=== PATIENT | male | born 1955 | race Caucasian/White ===

== ENCOUNTER 2021-09-09 09:00 | Outpatient (REF) | payer MEDICARE, MEDICAID, SELFPAY ==
--- NOTE | ~2021-09-09 | US_ITS ---
EXAMINATION: US ABDOMEN COMPLETE CLINICAL INFORMATION: Abnormal liver test. History of chronic alcohol use. COMPARISON: None TECHNIQUE: Real-time imaging of the abdominal viscera. FINDINGS: PANCREAS: The pancreas is homogeneous in echotexture and normal size. ABDOMINAL AORTA: The proximal, mid, and distal segments are normal in caliber. There are mild atherosclerotic plaques in the abdominal aorta. INFERIOR VENA CAVA: Visualized portions are normal. LIVER: The liver is normal in size. The liver contour is normal. Parenchymal echogenicity is increased. There is an anechoic cyst in the left hepatic lobe, anterior segment, measuring 0.8 x 0.8 x 0.9 cm. Cyst in the right hepatic lobe measures 1.1 x 0.8 x 0.7 cm. No solid lesion seen. There is no intrahepatic biliary duct dilatation seen. GALLBLADDER: Normal. The gallbladder is physiologically distended without evidence of stones, sludge, polyps, wall thickening or pericholecystic fluid. COMMON BILE DUCT: Normal in caliber measuring 0.22 cm in diameter. RIGHT KIDNEY: Normal. No hydronephrosis. No renal calculi or focal parenchymal lesions. The kidney measures 10.7 cm in maximum dimension. LEFT KIDNEY: There are 2 anechoic cysts seen in lower pole. The medial cyst measures 2.1 x 2.4 x 2.[address] lateral [address] cyst measures 2.1 x 1.4 x 2.4 cm. No hydronephrosis. No renal calculi or focal parenchymal lesions. The kidney measures 10.8 cm in maximum dimension. SPLEEN: Normal. The spleen measures 10.3 cm in maximum dimension. FREE FLUID: None. US/US abdomen complete IMPRESSION: 1. Mild hepatic steatosis. There are 2, right and left hepatic lobe small cysts. 2. There are 2 left renal cysts. 3. There are no echogenic renal calculi or hydronephrosis.
== END 2021-09-09 09:01 | disposition home or self-care (01) ==
LOC: HO.US 09:00
PROVIDERS: PCP Internal Medicine; Visit Provider Internal Medicine
DX: R94.5 Abnormal results of liver function studies (principal); F10.11 Alcohol abuse, in remission
CPT/HCPCS: 76700

== ENCOUNTER 2021-09-28 09:01 | Outpatient (REF) | payer MEDICARE, MEDICAID, SELFPAY ==
--- NOTE | ~2021-09-28 | MM_ITS ---
EXAMINATION: MM DIAGNOSTIC DIGITAL BREAST TOMOSYNTHESIS, BILATERAL US DIAGNOSTIC ULTRASOUND BREAST, LEFT CLINICAL INFORMATION: 65-year-old male with left retroareolar tenderness for approximately 3 months. Family history breast cancer, sister. No prior breast imaging. COMPARISON: None (current study represents initial baseline exam). TECHNIQUE: Digital breast tomosynthesis is performed in both the craniocaudal and mediolateral oblique views along with computer-aided detection (CAD). Synthesized 2D images are generated from the tomosynthesis. Ultrasound ultrasound left breast is targeted to the retroareolar and periareolar region. Grayscale imaging and color Doppler are performed without and with harmonics. FINDINGS: There are scattered areas of fibroglandular density (ACR BI-RADS breast composition Category b). There is mild asymmetric gynecomastia type parenchymal pattern, greater on the left. There is no mass or architectural abnormality. No abnormal calcifications. The axilla and skin contours are unremarkable. No skin thickening or coarsening of the stromal markings. Ultrasound left breast demonstrates no additional finding. There is no cystic or solid mass or architectural abnormality. No skin thickening or edema tracking in soft tissue planes. Results are discussed with the patient at time of visit. Patient should be managed based on the clinical impression. If clinically indicated, further evaluation may be considered with surgical consult. Decision to proceed with biopsy should be based on clinical grounds and degree of clinical concern. MM/MM tomosynthesis diagnostic BI IMPRESSION: Mild asymmetric gynecomastia, greater on left. ASSESSMENT: BI-RADS 2: Benign RECOMMENDATION: Patient may be managed based on the clinical impression.
== END 2021-09-28 09:02 | disposition home or self-care (01) ==
LOC: HO.MAMMO 09:01
PROVIDERS: Visit Provider Internal Medicine
DX: N62 Hypertrophy of breast (principal)
CPT/HCPCS: 76642; 77062; 77066

== ENCOUNTER 2024-04-15 15:26 | Outpatient (REF) | payer MEDICARE, MEDICAID, SELFPAY ==
[2024-04-15 17:58] LABS: MANUAL DIFF FLAG NO
[2024-04-15 18:11] LABS: Basophils Absolute Auto 0.1 X10*3/uL (0.0-0.2); Basophils Percent Auto 0.8 % (0-2); Eosinophils Absolute Auto 0.3 X10*3/uL (0.0-0.4); Hematocrit 39.1 % (42.0-52.0); Hemoglobin 14.1 g/dl (14.0-18.0); Imm Gran Abs Auto 0.09 X10*3/uL (0.00-0.03); Imm Gran Pct Auto 1.2 % (0.0-0.4); Lymphocytes Percent Auto 25.8 % (20-40); Mean Corpuscular HGB Conc 36.1 g/dl (31.0-36.0); Mean Corpuscular Hemoglobin 37.8 pg (27.0-33.0); Mean Corpuscular Volume 104.8 fL (80.0-98.0); Mean Platelet Volume 10.3 fL (9.4-12.4); Monocytes Absolute Auto 0.6 X10*3/uL (0.1-1.2); Monocytes Percent Auto 7.7 % (2-11); Neutrophils Absolute Auto 4.6 x10*3/uL (2.0-8.3); Neutrophils Percent Auto 60.5 % (45-73); Platelet Count 159 X10*3/uL (160-400); Red Blood Count 3.73 X10*6/uL (4.60-5.80); Red Cell Distribution Width 11.9 % (11.0-16.0); White Blood Count 7.6 X10*3/uL (4.8-10.8)
[2024-04-15 18:23] LABS: Alanine Aminotransferase 45 U/L (0-40); Albumin Level 4.4 g/dL (3.5-5.0); Alkaline Phosphatase 55 U/L (39-117); Anion Gap 15 (12-20); Aspartate Amino Transferase 68 U/L (5-37); Bilirubin Direct 0.2 mg/dL (0.0-0.5); Bilirubin Total 0.6 mg/dL (0.0-1.0); Blood Urea Nitrogen 11 mg/dL (9-16); Calcium 10.1 mg/dL (8.4-10.2); Carbon Dioxide 23 mmol/L (22-29); Chloride 107 mmol/L (96-108); Cholesterol 205 mg/dL (<200); Estimated Glomerular Filt Rate > 60; Glucose Random 114 mg/dL (60-115); HDL Cholesterol 63 mg/dL (>40); LDL Cholesterol Calculated 127 mg/dL (<100); Potassium 3.8 mmol/L (3.3-5.1); Sodium 141 mmol/L (135-145); Total Protein 7.3 g/dL (6.5-8.0); Triglycerides 78 mg/dL (<150)
== END 2024-04-15 15:27 | disposition home or self-care (01) ==
LOC: HO.CHCLDS 15:26
PROVIDERS: Visit Provider Internal Medicine
DX: R74.01 Elevation of levels of liver transaminase levels (principal); R03.0 Elevated blood-pressure reading, without diagnosis of hypertension
CPT/HCPCS: 36415; 80048; 80061; 80076; 85025

== ENCOUNTER 2024-05-03 15:38 | Outpatient (REF) | payer MEDICARE, MEDICAID, SELFPAY ==
[2024-05-03 18:50] LABS: Folate 15.2 ng/mL (> or = 4.0); Vitamin B12 650 pg/mL (200-900)
[2024-05-11 14:04] LABS: Vitamin B1 22 nmol/L (8-30)
== END 2024-05-03 15:39 | disposition home or self-care (01) ==
LOC: HO.CHCLDS 15:38
PROVIDERS: Visit Provider Internal Medicine
DX: D75.89 Other specified diseases of blood and blood-forming organs (principal)
CPT/HCPCS: 36415; 82607; 82746; 84425

== ENCOUNTER 2024-05-07 11:29 | Outpatient (REF) | payer MEDICARE, MEDICAID, SELFPAY | END 2024-05-07 11:30 | disposition home or self-care (01) | LOC: HO.US 11:29 | PROVIDERS: PCP Internal Medicine; Visit Provider Internal Medicine | DX: R74.01 Elevation of levels of liver transaminase levels (principal); F17.200 Nicotine dependence, unspecified, uncomplicated | CPT/HCPCS: 76775 ==

== ENCOUNTER 2024-08-08 13:29 | Outpatient (AMB) | payer MEDICARE, MEDICAID, SELFPAY ==
--- NOTE | 2024-08-08 08:15 | A.OFFVIS_ITS ---
Intake Visit Reasons: Current Smoker Allergies No Known Allergies Allergy (Unverified 03/05/20 15:07) HPI HPI Current Smoker: Details: Initial telehealth phone visit for this 68 smoker with a 45PYH. Patient started smoking at age 19 for 49 years at 1ppd. . Reports daily marijuana use. Denies second hand smoke exposure. Denies exposure to chemicals or substances like asbestos. . Denies known family history of lung cancer. Grandfather had. Denies personal history of cancers. Denies chest CT in last year. . Denies recent travel outside the [place]. Denies recent respiratory illness or recent hospitalization for respiratory issues. Denies testing positive for COVID. Admits receiving COVID Vaccine. . Denies fever, chills, new/worsening cough, hemoptysis, hoarseness or dysphagia. Denies significant chest pain, significant dyspnea or unintentional weight loss. Patient Lung Cancer Screening Questionnaire reviewed with patient by provider. . Shared Decision Making Completed. Patient meets criteria. Discussed in detail with patient, the risk vs benefit of LDCT screening. Patient consents to proceed with scan. Discussed smoking cessation. [facility], LAT[facility] Medical History (Updated 07/01/24 @ 11:19 by Cat Graff PA-C) Liver cyst Hepatic steatosis Hyperlipidemia Nicotine dependence, cigarettes, uncomplicated Surgical History (Updated 06/06/24 @ 10:03 by Cat Graff PA-C) History of colonoscopy Social History (Updated 08/08/24 @ 08:19 by Cat Graff PA-C) Patient Tobacco Use Status: Current everyday Tobacco user Tobacco use type: Cigarette Years Smoked: (onset 19yo, 1ppd x 49yrs, 40pyh) Telehealth Telehealth Telehealth Platform: Telephone Location of provider rendering services: practice address Location of patient: address on file Patient Identification confirmed using: Name, : Yes Telehealth method: voice only Patient verbally consented to treatment: Yes Patient verbally consented to billing insurance company: Yes Patient informed of any privacy concerns related to visit: Yes Minutes spent on Phone/Video with Pt.: 15 Assessment & Plan Assessment & Plan (1) Nicotine dependence, cigarettes, uncomplicated: Comment: (onset 19yo, 1ppd x 49yrs, 40pyh) Code(s): F17.210 - Nicotine dependence, cigarettes, uncomplicated Category: Medical Plan -Telehealth SDM visit completed today via phone. - Patient meets criteria for LDCT for lung cancer screening purposes and is asymptomatic. - Smoking cessation counseling offered. Patients can always call [phone]. - Will arrange for a LDCT scan of the chest for screening purposes at [facility]. - Risks, benefits, and alternatives were discussed in detail and the patient agrees to proceed. - Risks discussed include but are not limited to: radiation exposure, anxiety during testing and while awaiting results, false negatives, false positives and possibility of additional intervention such as further imaging or surgical procedures for benign disease. - Benefits are obviously detection of lung cancer at an early stage which can lead to improved outcomes. - Discussed the importance of screening program compliance with adherence to yearly LDCT scan as scheduled - or sooner interval scans for personalized screening regimen. - Discussed follow up plan. Our office will send a letter discussing results and if needed set up phone call and office visit based on CT findings. - Patient educated on results categorization and the management decisions for suspicious findings potentially found on the screening LDCT scan. Any patient with a Lung RADS score of 3 or 4 will be reviewed by a multidisciplinary team at [facility] to form a plan of action in regards to scan findings. - If further work up is warranted for a suspicious lung finding this will be followed by the Lung Cancer Screening program in conjunction with the Thoracic Surgery Department at [facility]. - A copy of the office note and LDCT will be sent to the patient's PCP - as well as documentation on any associated further plans of care. - Incidental findings on LDCT are the PCP's responsibility. These findings are indicated with an S finding on the LDCT Assessment. A note discussing the findings will be sent to the PCP who is then responsible for further management. - All questions answered.? Coding Level of Care Code Lung Cancer Screening G0296 Diagnoses Nicotine dependence, cigarettes, uncomplicated F17.210
--- OUTSIDE RECORDS SUMMARY | 2024-08-08 14:27 | XMS_ITS | Encounter Summary ---
Author Organization [employer] Address [address] [facility] 7 [place] [address] Care Team Providers Care Dot Compliance Specialist Name Role Phone Jailyn Ojeda MD Primary Care Provider [phone] Reason for Visit * Reason Comments Med Refill Encounter Details Date Type Department Care Team ([facility] st Contact Info) Description 07/27/2024 Refill [facility] MED & PEDS [address] [place], [place] [phone] Jailyn Ojeda MD [address] [place] [address] Social History Tobacco Use Types Packs/Day Years Used Date Smoking Tobacco: Every Day Cigarettes Smokeless Tobacco: Never Comments:1 ppd x 49 years. Alcohol Use Standard Drinks/Week Comments Yes 6 (1 standard drink = 0.6 oz pur e alcohol) Alcohol Answer Date Recorded Q1: How often do you have a drink containing alc ohol? 5 04/15/2024 Q2: How many drinks containi ng alcohol do you have on a typical day when you are drinking? 3 04/15/2024 Q3: How often do you have six or more drinks on one occasion? 5 04/15/2024 Housing Stability Answer Date Recorded What is your housing situation today? I have [employer] bliss 04/15/[address] you li ve. Do you have problems with any of the following? None of the above 04/15/2024 Food Insecurity Answer Date Recorded Within the past 12 months, y ou worried that your food would run out before you got money to buy more: Never True 04/15/2024 Within the past 12 months,th e food you bought just didn't last and you didn't have enough money to get more: Never True Transportation Answer Date Recorded In the past 12 months, has l ack of transportation kept you from medical appts, meetings, work or from getting things needed for daily living? No 04/15/2024 Utilities Answer Date Recorded In the past 12 months, has t he electric, gas, oil or water company threatened to shut off services in your home? No 04/15/2024 Internet Access Answer Date Recorded Internet Access Q1 Yes 04/15/2024 Internet Access Q2 Not on file 04/15/2024 Sex and Gender Information Value Date Recorded Sex Assigned at Male 04/18/2022 10:20 AM EDT Legal Sex Male 10:20 AM EDT Gender Identity Male 04/18/2022 10:20 AM EDT Sexual Orientation Straight 04/18/2022 10 :20 AM EDT documented as of this encounter Plan of Treatment Not on file documented as of this encounter Visit Diagnoses Not on filedocumented in this encounter Care Teams Dot Compliance Specialist Relationship Specialty Start Date End Date Jailyn Ojeda MD [address] [place] [phone] PCP - General Internal Medicine 06/26/13 documented as of this encounter
--- OUTSIDE RECORDS SUMMARY | 2024-08-08 14:27 | XMS_ITS | Encounter Summary ---
Author Organization [employer] Address [address] [facility] 7 [place] [address] Care Team Providers Care Tape Calender Name Role Phone Jailyn Ojeda MD Primary Care Provider [phone] Encounter Details Date Type Department Care Team ([facility] st Contact Info) Description 04/15/2024 Orders Only [facility] MED & PEDS [address] [place] [address] Jailyn Ojeda MD [address] [place] [address] Transaminitis (Primary Dx); Hypercholesterolemia; Macrocytosis; Macrocytosis without anemia Social History Tobacco Use Types Packs/Day Years [...] on file documented as of this encounter Procedures Procedure Name Priority Date/Time Associated Diagnosis Comments US AORTA Routine 05/07/2024 11:46 AM EST VITAMIN B12/FOLATE, SERUM PANEL Routine 05/03/2024 3:40 PM EST Macrocytosis VITAMIN B1 Routine 05/03/2024 3:40 PM EST Macrocytosis documented in this encounter Results * US aorta (05/07/2024 11:46 AM EST) Anatomical Region Laterality Modality Abdomen Ultrasound 05/07/2024 11:4 6 AM EST Narrative 06/11/2024 6:08 AM EST ? [facility] ?[address] ?[place] [address] ? Ultrasound Report ? Signed ? Patient: Kike Rodriguez ?MR#: [id number] ?? [id number] ? : 1955 ?Acct:[id number] ? Age/Sex: 68 / M ?ADM Date: 11/19/24 ? Loc: HO.US ? Attending Dr: Jailyn Ojeda MD ? Ordering Physician: Jailyn Ojeda MD ?? Date of Service: 05/07/24 ?? Procedure(s): US aorta ?? Accession Number(s): [id number] ? cc: Jailyn Ojeda MD ? EXAMINATION: ?? US RETROPERITONEAL LIMITED (AORTA) ? CLINICAL INFORMATION: ?? Smoker. ? COMPARISON: ?? None available. ? TECHNIQUE: ?? Stover-scale, color Doppler and spectral Doppler evaluation of the ?? abdominal aorta. ? FINDINGS: ?? There are atheromatous plaques The measurements of the aorta in maximum ?? AP and transverse dimensions respectively are as follows: ? Proximal: 2.6 x 2.8 cm. ?? Mid: 2.1 x 1.7 cm. ?? Distal: 1.9 x 1.7 cm. ?? PSV: 58.1 cm/s. ? The measurements of the common iliac arteries in maximum AP and TRV ?? dimensions are as follows: ? Right Common Iliac Artery: 0.9 x 1.0 cm. ?? Left Common Iliac Artery: 1.0 x 1.1 cm. ? ADDITIONAL FINDINGS: Incidental finding was made of a liver cyst left ?? lobe measures 9 mm. ? US/US aorta ?? IMPRESSION: ? 1. ??Abdominal aorta is mildly ectatic, nonaneurysmal measuring up to ?? 2.8 cm.. No aneurysm found. ? 2. ??Incidental finding was made of a liver cyst left lobe. ? Infrarenal Aortic Diameter (cm) ? RECOMMENDED FOLLOW-UP ? 2.0 cm Normal diameter of infrarenal aorta ? 2.1 cm to 2.5 cm Not AAA. If reported AND described as dilated, no f/u ?? rec ? 2.6 cm to 2.9 cm Every 5 years1 ? 3.0 cm to 3.4 cm Every 3 years ? 3.5 cm to 3.9 cm Every 2 years ? 4.0 cm to 4.4 cm Every 12 months, Recommend vascular consultation ? 4.5 cm to 5.4 cm Every 6 months, Recommend vascular consultation ? 5.5 cm Referral to vascular specialist ? Enlarging Fusiform AAA: Recommend vascular consultation if enlarges > ?? 0.5 cm in 6 months or > 1 cm in 1 year. ? Saccular AAA of any size: Recommend vascular consultation. ? 1. ??AAA BPRs based on ACR White paper: J Am Stephen Radiol 2013;10 ?? (10):[id number]. (Available on [employer]) ? Electronically signed by: ??Oren Fernandez MD ??06/11/2024 06:05 AM EST ?? RP ? Dictated By: ?Oren Fernandez MD ? Signed By: ?<Electronically signed by Oren Fernandez MD in OV> ?06/11/24604 ? DD/ 1146 ? TD/TT: 05/07/24 1200 ? [employer] Lieutenant: HS ? Procedure Note Nicola, Image - 06/11/2024 [place] [address] Ultrasound Report Signed Patient: Loyda Rodriguez#: [id number] : 5Acct:[id number] Age/Sex: 68 / MADM Date: 05/07/24 Loc: HO.US Attending Dr: Jailyn Ojeda MD Ordering Physician: Jailyn Ojeda MD Date of Service: 05/07/24 Procedure(s): US aorta Accession Number(s): [id number] cc: Jailyn Ojeda MD EXAMINATION: US RETROPERITONEAL LIMITED (AORTA) CLINICAL INFORMATION: Smoker. COMPARISON: None available. TECHNIQUE: Stover-scale, color Doppler and spectral Doppler evaluation of the abdominal aorta. FINDINGS: There are atheromatous plaques The measurements of the aorta in maximum AP and transverse dimensions respectively are as follows: Proximal: 2.6 x 2.8 cm. Mid: 2.1 x 1.7 cm. Distal: 1.9 x 1.7 cm. PSV: 58.1 cm/s. The measurements of the common iliac arteries in maximum AP and TRV dimensions are as follows: Right Common Iliac Artery: 0.9 x 1.0 cm. Left Common Iliac Artery: 1.0 x 1.1 cm. ADDITIONAL FINDINGS: Incidental finding was made of a liver cyst left lobe measures 9 mm. US/US aorta IMPRESSION: 1. Abdominal aorta is mildly ectatic, nonaneurysmal measuring up to 2.8 cm.. No aneurysm found. 2. Incidental finding was made of a liver cyst left lobe. Infrarenal Aortic Diameter (cm) RECOMMENDED FOLLOW-UP 2.0 cm Normal diameter of infrarenal aorta 2.1 cm to 2.5 cm Not AAA. If reported AND described as dilated, no f/u rec 2.6 cm to 2.9 cm Every 5 years1 3.0 cm to 3.4 cm Every 3 years 3.5 cm to 3.9 cm Every 2 years 4.0 cm to 4.4 cm Every 12 months, Recommend vascular consultation 4.5 cm to 5.4 cm Every 6 months, Recommend vascular consultation 5.5 cm Referral to vascular specialist Enlarging Fusiform AAA: Recommend vascular consultation if enlarges > 0.5 cm in 6 months or > 1 cm in 1 year. Saccular AAA of any size: Recommend vascular consultation. 1. AAA BPRs based on ACR White paper: J Am Stephen Radiol 2013;10 (10):789-794. (Available on [employer]) Electronically signed by: Oren Fernandez MD 06/11/2024 06:05 AM EST Dictated By: Oren Fernandez MD Signed By: <Electronically signed by Oren Fernandez MD in OV> 06/11/24 0605 DD/ 1146 TD/TT: 05/07/24 1200 [employer] Lieutenant: HS Jailyn Ojeda MD [facility] US PROCEDURES Edited Re sult - Final * Vitamin B1 (05/03/2024 3:40 PM EST) Vitamin B1 22 8 - 30 nmol/L [facility] Comment:Vitamin supplementat ion within 24 hours prior toblood draw may affect the accuracy of the results.This test was developed and its analytical performancecharacteristics have been determined by [employer] [place], [place]. It hasnot been cleared or approved by the U.S. Food and DrugAdministration. This assay has been validated pursuantto the CLIA regulations and is used for clinicalpurposes.THIS TEST WAS PERFORMED AT:[id number] [place] [id number] ARREDONDO MD,PHD Blood Venous blood specimen / Unknown 05/03/2024 3:40 PM EST 05/03/2024 5:52 PM EST us Jailyn Ojeda MD LAB BLOOD ORDERABLES Final Result Performing Organization Address [facility] Co de Phone Number [facility] [address] [place] [phone] * Vitamin B12/Folate, Serum Panel (05/03/2024 3:40 PM EST) Vitamin B12 650 200 - 900 pg/mL [facility] Comment:NORMAL 200-900 PG/ML INDETERMINATE 160-199 PG/ML DEFICIENT < 160 PG/ML Folate 15.2 > or = 4.0 ng/mL [facility] Comment:Reference Values:> o r = 4.0 ng/mL< 4.0 ng/mL suggests folate deficiency Methotrexate, aminopterin and folinic acid(leucovorin) are chemotherapeutic agents whose molecularstructures are similar to folate; therefore, the Architectfolate assay cannot be used for patients using these drugs. Blood Venous blood specimen / Unknown 05/03/2024 3:40 PM EST 05/03/2024 5:52 PM EST us Jailyn Ojeda MD LAB BLOOD ORDERABLES Final Result Performing Organization Address [facility] Co de Phone Number [facility] [address] [place] [phone] documented in this encounter Visit Diagnoses Diagnosis Transaminitis- Primary Nonspecific elevation of levels of transaminase or lactic acid dehydrogenase (LDH) Hypercholesterolemia Pure hypercholesterolemia Macrocytosis Other specified diseases of blood and blood-forming organs Macrocytosis without anemia Other specified diseases of blood and blood-forming organs documented in this encounter Care Teams Tape Calender Relationship Specialty Start Date End Date Jailyn Ojeda MD [address] [place] [phone] PCP - General Internal Medicine 06/26/13 documented as of this encounter
--- OUTSIDE RECORDS SUMMARY | 2024-08-08 14:27 | XMS_ITS | Encounter Summary ---
Author Organization [employer] Address [address] [place] [address] [address] [facility] [place] [address] Care Team Providers Care Utility Plant Operative Name Role Phone Jailyn Ojeda MD Primary Care Provider [phone] Reason for Referral * Consultation (Routine) - Authorized Specialty Diagnoses / Procedures Referred By Controbi t Referred To Contact Gastroenterology Diagnoses Positive colorectal cancer screening using Cologuard test Jailyn Ojeda MD [address] [place] [address] Phone: tel: fax: Soraida Cortes MD [address] [place] [phone] Phone: tel: fax: Referral ID Status Reason Start Date Expiration Date Visits Requested Visits Authorized [id number] Authorized Specialty Services Required 05/08/2025 1 1 Encounter Details Date Type Department Care Team ([facility] st Contact Info) Description 05/08/2024 Orders Only [facility] MED & PEDS [address] [place], [place] [phone] Jailyn Ojeda MD [address] [place] [address] [phone] Transaminitis (Primary Dx); Positive colorectal cancer screening using Cologuard test Social History Tobacco Use Types Packs/Day Years [...] as of this encounter Plan of Treatment Scheduled Referrals Name Type Priority Associated Diagnoses Order Schedule Referral to Gastroenterology Outpatient Referral Routine Positive colorectal cancer screening using Cologuard test Expected: 05/08/2024 (Approximate), Expires: 05/08/2025 documented as of this encounter Visit Diagnoses Diagnosis Transaminitis- Primary Nonspecific elevation of levels of transaminase or lactic acid dehydrogenase (LDH) Positive colorectal cancer screening using Cologuard test documented in this encounter Care Teams Utility Plant Operative Relationship Specialty Start Date End Date Jailyn Ojeda MD [address] [place] [phone] PCP - General Internal Medicine 06/26/13 documented as of this encounter
--- OUTSIDE RECORDS SUMMARY | 2024-08-08 14:27 | XMS_ITS | Clinical Summary ---
Author Organization [employer] Address [address] [facility] [address] [place] [address] Care Team Providers Care Operator Maintainer Name Role Phone Jailyn Ojeda MD Primary Care Provider [phone] Allergies No known active allergies Medications cholecalciferol (Vitamin D-3) 25 MCG (1000 UT) capsule Take 1 capsule by mouth Once per day. 12/09/19 Active B Complex Vitamins (RA B-Complex with B-12) tablet Take by mouth. 08/06/19 20 Active Blood Pressure kitIndications:E levated BP without diagnosis of hypertension BP check Daily 1 kit 04/15/20 Active atorvastatin (Lipitor) 20 MG tabletIndication s:Hypercholester olemia Take 1 tablet (20 mg) by mouth Once per day. 30 tablet 11 04/15/20 24 025 Active co-enzyme Q-10 30 MG capsuleIndicatio ns:Hypercholeste rolemia Take 1 capsule (30 mg) by mouth Once per day. 30 capsule 11 04/15/20 24 025 Active doxazosin (Cardura) 2 MG tablet TAKE 1 TABLET BY MOUTH EVERY DAY 90 tablet 3 07/30/19 25 Active doxazosin (Cardura) 2 MG tablet TAKE 1 TABLET BY MOUTH EVERY DAY 90 tablet 3 10/27/19 24 025 Discontinued Active Problems Problem Noted Date Diagnosed Date Transaminitis 04/15/2024 Hypercholesterolemia 04/15/2024 Macrocytosis without anemia 04/15/2024 Alcoholism 12/19/2012 Smoker 12/19/2012 Tooth disorder 12/19/2012 Vitamin D deficiency 12/19/2012 Encounters Date Type Department Care Team Description 07/27/2024 Refill [facility] [address] [place] [address] Jailyn Ojeda MD 06/14/2024 Telephone [facility] [address] [place] [phone] Jailyn Ojeda MD Results 05/14/2024 Telephone [facility] [address] [place] [address] Jailyn Ojeda MD 05/13/2024 11:15 AM EST Clinical Support [facility] [address] [place] [address] Brittany George, GERALDO Hypertension without cardiac signs or symptoms 05/13/2024 Travel 05/08/2024 Telephone [facility] [address] [place] [address] Jailyn Ojeda MD 05/08/2024 Telephone [facility] [address] [place] [address] Inez Salomon, GERALDO Results 05/08/2024 Orders Only [facility] [address] [place] [address] Jailyn Ojeda MD Transaminitis (Primary Dx); Positive colorectal cancer screening using Cologuard test from Last 3 Months Immunizations Name Administration Dates Next Due Influenza High-dose Quadriva lent Preservative Free 04/01/2023 Influenza Quadrivalent Adjuvanted 06/03/2022, Influenza injectable quadriv alent IIV4 with preservative 03/16/2018,06/06/2017,03/07/2016,2014 Influenza injectable quadriv alent preservative free 03/07/2019 Influenza, High Dose Seasona l, Preservative Free 04/15/2024 Influenza, IIV3, injectable 03/19/2014, 1 Influenza, Split (incl. gaudencio fied surface antigen) 03/19/2013 Pneumococcal Conjugate PCV 20 04/15/2024 Tdap 12/19/2012 Zoster, Recombinant 10/12/2021,08/13/2021 Family History Medical History Relation Name Comments Emphysema Mother Relation Name Status Comments Mother Social History Tobacco Use Types Packs/Day Years Used Date Smoking Tobacco: Every Day Cigarettes Smokeless Tobacco: Never Tobacco Cessation:Ready to Q uit: No; Counseling Given: No Comments:1 ppd x 49 years. Alcohol Use [...] Orientation Straight 04/18/2022 10 :20 AM EDT Last Filed Vital Signs Vital Sign Reading Time Taken Comments Blood Pressure 143/71 04/15/2024 2:37 PM EDT Pulse 81 04/15/2024 2:37 PM EDT Temperature 36.2 ??C (97.2 ??F) 04/15/2024 2:37 PM ED T Respiratory Rate 12 04/15/2024 2:37 PM EDT Oxygen Saturation 95% 04/15/2024 2:37 PM EDT Inhaled Oxygen Concentration - - Weight 73 kg (161 lb) 04/15/2024 2:37 PM EDT Height 170.2 cm (5' 7 ) 04/15/2024 2:37 PM EDT Body Mass Index 25.22 04/15/2024 2:37 PM EDT Plan of Treatment Health Maintenance Due Date Last Done Comments CT Colonography 1954 Colonoscopy 1954 Depression Screening 1954 FIT 1954 FOBT 1954 Sigmoidoscopy 1954 DTaP/Tdap/Td Vaccines (2 - Td or Tdap) 12/19/2022 12/19/2012 COVID-19 Vaccine ( season) 2024 04/01/2023, 06/03/2022, 04/15/2021, Additional history exists Alcohol/Substance Use Screening 04/15/2025 04/15/2024 SDOH Screening 04/15/2025 04/15/2024 Tobacco Screening 04/15/2025 04/15/2024 Colorectal Cancer Screening 04/30/2027 FIT DNA/Cologuard 04/30/2027 04/30/2024 Lipid Panel 04/15/2029 04/15/2024 RSV Patients and Patients Aged 60 years or older (1 - 1-dose 75+ series) 2029 Hepatitis C Screening Completed 07/06/2021 Zoster Vaccines Completed 10/12/2021, 08/13/2021 Influenza Vaccine Completed 04/15/2024, , 06/03/2022, Additional history exists Pneumococcal Vaccine: 50+ Years Completed 04/15/2024 HIB Vaccines Aged Out No longer eligi ble based on patient's age to complete this topic HPV Vaccines Aged Out No longer eligi ble based on patient's age to complete this topic Hepatitis A Vaccines Aged Out No long er eligible based on patient's age to complete this topic Hepatitis B Vaccines Aged Out No long er eligible based on patient's age to complete this topic IPV Vaccines Aged Out No longer eligi ble based on patient's age to complete this topic Meningococcal Vaccine Aged Out No jarrett oralia eligible based on patient's age to complete this topic RSV under 20 months Aged Out No longe r eligible based on patient's age to complete this topic Rotavirus Vaccines Aged Out No longer eligible based on patient's age to complete this topic Procedures Procedure Name Priority Date/Time Associated Diagnosis Comments LAB COLOGUARD?? COLON CANCER SCREEN Routine 04/30/2024 12:10 PM EST Screening for colon cancer Transaminitis LIPID PANEL, STANDARD Routine 04/15/2024 3:27 PM EDT Elevated BP without diagnosis of hypertension Transaminitis ZZZ HISTORICAL HEPATITIS C AB W/REFL TO HCV RNA, QN, PCR Routine 07/06/2021 12:06 PM EST from Last 3 Months or Most Recently Relevant to Health Maintenance Results * (ABNORMAL) Cologuard?? colon cancer screening (04/30/2024 12:10 PM EST) Cologuard Result Positive( A) Negative 05/08/2024 2:17 AM EST [facility] (CLIA #:[id number]) Comment: POSITIVE TEST RESULT. A positive Cologuard result should be followed with a colonoscopy or visual examination of the colon. The normal value (reference range) for this assay is negative. TEST DESCRIPTION: Composite algorithmic analysis of stool DNA-biomarkers with hemoglobin immunoassay. ?? Quantitative values of individual biomarkers are not reportable and are not associated with individual biomarker result reference ranges. Cologuard is intended for colorectal cancer screening of adults of either sex, 45 years or older, who are at average-risk for colorectal cancer (CRC). Cologuard has been approved for use by the U.S. FDA. The performance of Cologuard was established in a cross sectional study of average-risk adults aged 50-84. Cologuard performance in patients ages 45 to 49 years was estimated by sub-group analysis of near-age groups. Colonoscopies performed for a positive result may find as the most clinically significant lesion: colorectal cancer [4.0%], advanced adenoma (including sessile serrated polyps greater than or equal to 1cm diameter) [20%] or non- advanced adenoma [31%]; or no colorectal neoplasia [45%]. These estimates are derived from a prospective cross-sectional screening study of 10,000 individuals at average risk for colorectal cancer who were screened with both Cologuard and colonoscopy. (Inocencia Lerner al, N Engl J Med 2014;370(14):9464-6268.) Cologuard may produce a false negative or false positive result (no colorectal cancer or precancerous polyp present at colonoscopy follow up). A negative Cologuard test result does not guarantee the absence of CRC or advanced adenoma (pre-cancer). The current Cologuard screening interval is every 3 years. ([place] [employer] Society and U.S. Multi-Society Task Force). Cologuard performance data in a 10,000 patient pivotal study using colonoscopy as the reference method can be accessed at the following location: www.Renrenmoney/results. Additional description of the Cologuard test process, warnings and precautions can be found at www.[employer] COrd.com. Stool specimen (specimen) 04/30/2024 12:10 PM EST 05/01/2024 1:15 PM EST us Jailyn Ojeda MD LAB MOLECULAR DIAGNOSTICS O RDERABLES Final Result [facility] (CLIA #:[id number]) [place] [address] [place] [address], * (ABNORMAL) Lipid Panel, Standard (04/15/2024 3:27 PM EDT) Triglycerides 78 <150 mg/dL [facility] Comment:Desirable Triglyceri de: less than 150 mg/dLBorderline High Triglyceride 150-199 mg/dLHigh Triglyceride: 200-499 mg/dLVery High Triglyceride: greater than or equal to 5OO mg/dL Cholesterol 205(H) <200 mg/dL [facility] Comment:Desirable Cholestero l: less than 200 mg/dLBorderline High Cholesterol: 200-239 mg/dLHigh Cholesterol: greater than 239 mg/dL LDL Cholesterol Calculated 127(H) <100 mg/dL [facility] Comment:Desirable LDL: less than 100 mg/dLNear Optimal/Above Optimal LDL: 110- 129 mg/dLBorderline High LDL: 130-159 mg/dLHigh LDL: 160-189 mg/dLVery High LDL: greater than or equal to 190 mg/dL HDL Cholesterol 63 >40 mg/dL [facility] Comment:Desirable HDL: great er than 40 mg/dL Note: This HDL assay may give artificially low results in patients with liver disease. Blood Venous blood specimen / Unknown 04/15/2024 3:27 PM EDT 04/15/2024 5:54 PM EDT us Jailyn Ojeda MD LAB BLOOD ORDERABLES Final Result Performing Organization Address [facility]/ZIP Co de Phone Number [facility] [address] [place] [address] [phone] * HEPATITIS C AB W/REFL TO HCV RNA, QN, PCR (07/06/2021 12:06 PM EST) HEPATITIS C ANTIBODY NON-REACT [facility] NON-REACT [facility] INDEX 0.05 <1.00 [facility] Comment: ?? HCV antibody was non-reactive. There is no laboratory ?? evidence of HCV infection. ?? In most cases, no further action is required. However, if recent HCV exposure is suspected, a test for HCV RNA (test code 07733) is suggested. ?? For additional information please refer to http://education.[employer].LocalBonus/faq/UZS54j1 (This link is being provided for informational/ educational purposes only.) ?? 07/06/2021 12:0 6 PM EST us Trina Luevano MD HISTORICAL/NON ORDERABLE LABS Final Result Performing Organization Address City/[facility]/ZIP Co de Phone Number [facility] [address] [place] [address], from Last 3 Months or Most Recently Relevant to Health Maintenance Insurance [facility] [address] [facility] [address] Hernandez GRACE Care Teams Operator Maintainer Relationship Specialty Start Date End Date Jailyn Ojeda MD [address] [place] [address] GRACE Hernandez [phone] PCP - General Internal Medicine 06/26/13
--- OUTSIDE RECORDS SUMMARY | 2024-08-08 14:27 | XMS_ITS | Encounter Summary ---
Author Organization [employer] Address [address] [place] [address] [place] [address] Care Team Providers Care Crime Investigator Special Agent Name Role Phone Jailyn Ojeda MD Primary Care Provider [phone] Reason for Visit * Reason Comments Med Refill Encounter Details Date Type Department Care Team ([facility] st Contact Info) Description 06/13/2023 Refill [facility] [address] [place] [address] Jailyn Ojeda MD [address] [place] [address] Social History Tobacco Use Types Packs/Day Years Used Date Smoking Tobacco: Never Assessed Sex and Gender Information Value Date Recorded Sex Assigned at Male 04/18/2022 10:20 AM EDT Legal Sex Male 10:20 AM EDT Gender Identity Male 04/18/2022 10:20 AM EDT Sexual Orientation Straight 04/18/2022 10 :20 AM EDT documented as of this encounter Plan of Treatment Not on file documented as of this encounter Visit Diagnoses Not on filedocumented in this encounter Care Teams Crime Investigator Special Agent Relationship Specialty Start Date End Date Jailyn Ojeda MD [address] [place] [address] PCP - General Internal Medicine 06/26/13 documented as of this encounter
== END 2024-08-08 13:30 | disposition home or self-care (01) ==
LOC: HO.HPS 13:29
PROVIDERS: PCP Internal Medicine; Referring Provider Internal Medicine; Visit Provider Physician Assistant Medical
DX: F17.210 Nicotine dependence, cigarettes, uncomplicated (principal)
CPT/HCPCS: G0296

== ENCOUNTER → 2024-08-08 13:29 | Outpatient (BNVA) | payer MEDICARE, MEDICAID, SELFPAY | PROVIDERS: PCP Internal Medicine; Referring Provider Internal Medicine; Visit Provider Physician Assistant Medical | DX: F17.210 Nicotine dependence, cigarettes, uncomplicated (principal) | CPT/HCPCS: G0296 ==

== ENCOUNTER 2024-08-20 13:59 | Outpatient (AMB) | payer MEDICARE, MEDICAID, SELFPAY ==
--- NOTE | 2024-08-20 14:02 | MHC.OFFVIS ---
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 Recall, 2nd lifetime Prior hx of colo/egd? 2011 w/ Dr. Jade ([facility] Chief Complaint; No GI concerns per pt. Second Helper Required: No Accompanied by: Self / Same As Patient Allergies No Known Allergies Allergy (Unverified 08/20/24 14:02) HPI HPI [employer]ABRICATOR- DX: Positive Cologuard from [facility]: Details: 68 year old? male with past medical history of hyperlipidemia, liver cysts, hyperlipidemia, tobacco use is here today for pre colonoscopy screening.? Patient was sent to us by his PCP.? Last colonoscopy in 2011. Patient had positive Cologuard and was recommended to come for colonoscopy screening. Patient denies any gastrointestinal symptoms in the past or at present.? Denies any personal or family history of gastrointestinal disease, colon polyps, or CRC.? Denies history of difficulty with sedation or anesthesia in the past.? Negative for history of sleep apnea.? Denies any history of cardiac, renal, pulmonary, or hepatic disease.?? No history of infectious? diseases like hepatitis A, B, C, HIV or tuberculosis.? Patient is not on any anticoagulation. Patient was found to have elevated liver enzymes. 2 small liver cysts found on ultrasound in 2021, no follow-up seen. Hepatic steatosis found as well. Patient denies any abdominal pain or discomfort. Patient smokes 1 pack a day since he was 19 years old. [facility] Medical History (Updated 09/08/24 @ 12:42 by Lurdes Su [facility]) Transaminitis Liver cyst Hepatic steatosis Hyperlipidemia Nicotine dependence, cigarettes, uncomplicated Surgical History History of colonoscopy Social History Patient Tobacco Use Status: Current everyday Tobacco user Tobacco use type: Cigarette Years Smoked: (onset 19yo, 1ppd x 49yrs, 40pyh) Review of Systems Const Denies weight gain and Denies weight loss ENT Reports no additional complaints, Denies dysphagia and Denies odynophagia Card Reports no additional complaints Resp Reports no additional complaints GI Denies abdominal pain, Denies belching, Denies melena, Denies bloating, Denies change in bowel habits, Denies dysphagia, Denies excessive flatus, Denies dyspepsia, Denies heartburn, Denies diarrhea, Denies loose stools, Denies nausea, Denies odynophagia and Denies vomiting Reports no additional complaints Musc Reports no additional complaints Neuro Reports no additional complaints Psych Reports no additional complaints Endo Reports no additional complaints Physical Exam Vital Signs: Last Vital Signs Pulse 86 08/20/24 14:14 BP 154/70 H 08/20/24 14:14 Pulse Ox 94 08/20/24 14:14 Oxygen Delivery Method Room Air 08/20/24 14:14 BMI result Body Mass Index 25.4 Const General: healthy appearing, no acute distress and well developed Nutritional Appearance: well nourished Orientation/consciousness: patient oriented x3 Resp Effort & Inspection: normal respiratory effort, able to speak in complete sentences, no tracheal deviation and symmetric chest movement Auscultation: clear to auscultation bilaterally Cardio Rate: regular rate GI Inspection: Yes normal to inspection and No distended Palpation (GI): Soft to palpation, not firm, nontender and No hepatosplenomegaly present Auscultation: normal bowel sounds General: Yes no CVA tenderness Back/Spine/Pelvis Back: no CVA tenderness Skin General skin exam: elasticity normal, turgor normal and dry skin Neuro General: patient oriented x3 Psych Appearance: grossly normal Mental Status: mental status grossly normal Assessment & Plan Assessment & Plan (1) Screen for colon cancer: Code(s): Z12.11 - Encounter for screening for malignant neoplasm of colon (2) Nicotine dependence, cigarettes, uncomplicated: Code(s): F17.210 - Nicotine dependence, cigarettes, uncomplicated Category: Medical (3) Transaminitis: Code(s): R74.01 - Elevation of levels of liver transaminase levels Category: Medical (4) Liver cyst: Code(s): K76.89 - Other specified diseases of liver Category: Medical (5) Hepatic steatosis: Code(s): K76.0 - Fatty (change of) liver, not elsewhere classified Plan Patient denies any GI, cardiac or respiratory symptoms.? Although patient reports occasional dyspnea, still smokes 1 pack a day smoking for the last 49 years. Will send him to pulmonology for evaluation. Denies any issues with anesthesia in the past.? Denies any history of sleep apnea.? No history infectious diseases in the past or present.? Not on any anticoagulation therapy.? No family or personal history of colon cancer or polyps.? Patient denies melena, hematochezia, unintentional weight loss or ribbon like stools.? Transaminitis and increase echogenicity of the liver. Will check liver enzymes again, liver fibrosis panel and patient will go for abdominal ultrasound. No ultrasound since 2021. Discussed at length the pre-procedure,? prep, diet & medications as well as what to expect prior, during and after the procedure.?? Stressed the importance of good bowel prep.? Recommended the use of Vaseline or Calmoseptine OTC & baby wipes with bowel movements to promote comfort.? ?Patient verbalizes understanding and agrees to plan of care.? He was given the opportunity to ask questions and all questions answered.? We will see him after the procedure.? Orders: Orders Liver Panel 08/20/24 R74.01 - Elevation of levels of liver transaminase levels Liver Fibrosis Pnl 08/20/24 K76.0 - Fatty (change of) liver, not elsewhere classified US abdomen arreola w elastography 08/20/24 K76.0 - Fatty (change of) liver, not elsewhere classified Referrals Pulmonology Referral J44.9 - Chronic obstructive pulmonary disease, unspecified, F17.210 - Nicotine dependence, cigarettes, uncomplicated Medications: New bisacodyl (Dulcolax (bisacodyl)) take 4 tabs at noon the day before your colonoscopy 20 mg (4 x 5 mg) PO ONCE 4 tabs 0RF constipation 1 day Z12.11 - Encounter for screening for malignant neoplasm of colon polyethylene glycol 3350 (Miralax) As directed by gastroenterology department at [facility] 238 grams PO ONCE 238 grams 0RF Z12.11 - Encounter for screening for malignant neoplasm of colon Coding Level of Care Code New Pt Level 4 (95377) Diagnoses Screen for colon cancer Z12.11 Nicotine dependence, cigarettes, uncomplicated F17.210 Transaminitis R74.01 Liver cyst K76.89 Hepatic steatosis K76.0 Time Spent (min) 45 Comment 30 minutes spent with patient and additional 15 minutes spent reviewing his records
[2024-08-20 14:14] VITALS: BP 154/70; PULSE 86; O2SAT 94; BMI 25.4
--- OUTSIDE RECORDS SUMMARY | 2024-08-20 17:41 | XMS_ITS | Clinical Summary ---
Author Organization [employer] Address [address] [facility] 7t [place] [address] Care Team Providers Care Calibration Specialist Name Role Phone Jailyn Ojeda MD Primary Care Provider [phone]- [phone] Allergies No known active allergies Medications cholecalciferol [...] Encounters Date Type Department Care Team Description 08/20/2024 Orders Only GENERIC EXTERNAL DATA DEPARTMENT Provider, Generic External Data 07/27/2024 Refill [facility] MED & PEDS [address] [place] [address] Jailyn Ojeda MD 06/14/2024 Telephone [facility] [address] [facility] [place], [place] [phone] Jailyn Ojeda MD Results from Last 3 Months Immunizations Name Administration [...] the past 12 months, has t he [employer], gas, oil or water company threatened to [...] Procedure Name Priority Date/Time Associated Diagnosis Comments HEPATIC FUNCTION PANEL Routine 08/20/2024 3:08 PM EST LAB COLOGUARD?? COLON CANCER SCREEN Routine 04/30/2024 12:10 PM EST Screening for colon cancer Transaminitis LIPID PANEL, STANDARD Routine 04/15/2024 3:27 PM EDT Elevated BP without diagnosis of hypertension Transaminitis ZZZ HISTORICAL HEPATITIS C AB W/REFL TO HCV RNA, QN, PCR Routine 07/06/2021 12:06 PM EST from Last 3 Months or Most Recently Relevant to Health Maintenance Results * (ABNORMAL) Hepatic Function Panel (08/20/2024 3:08 PM EST) Bilirubin, Total 0.5 0.0 - 1.0 mg/dL [facility] Bilirubin, Direct 0.2 0.0 - 0.5 mg/dL [facility] Aspartate Amino Transferase 47(H) 5 - 37 U/L [facility] Alanine Aminotransferase 37 0 - 40 U/L [facility] Total Protein 7.8 6.5 - 8.0 g/dL [facility] Albumin Level 4.3 3.5 - 5.0 g/dL [facility] Alkaline Phosphatase 78 39 - 117 U/L [facility] 08/20/2024 3:08 PM EST 08/20/2024 3:08 PM EST us Generic External Data Provider LAB BLOOD ORDERAB LES Final Result [facility] [address] [place] [phone] * (ABNORMAL) Cologuard?? colon cancer screening (04/30/2024 12:10 PM EST) Cologuard Result Positive( A) Negative 05/08/2024 2:17 AM EST [facility] (CLIA #:[id number]) Comment: POSITIVE TEST RESULT. A positive Cologuard [...] screened with both Cologuard and colonoscopy. (Inocencia Stokes. et al, N Engl J Med 2014;370(14):4018-3794.) Cologuard may produce a false negative or false positive result (no colorectal cancer or precancerous polyp present at colonoscopy follow up). A negative Cologuard test result does not guarantee the absence of CRC or advanced adenoma (pre-cancer). The current Cologuard screening interval is every 3 years. ([place] Cancer Society and U.S. Multi-Society Task Force). Cologuard performance data in a 10,000 patient pivotal study using colonoscopy as the reference method can be accessed at the following location: www.[employer]/results. Additional description of the Cologuard test process, warnings and precautions can be found at www.MAR Systemsrd.com. Stool specimen (specimen) 04/30/2024 12:10 PM EST 05/01/2024 1:15 PM EST us Jailyn Ojeda MD LAB MOLECULAR DIAGNOSTICS O RDERABLES Final Result [facility] (CLIA #:[id number]) [address] [address], * (ABNORMAL) Lipid Panel, Standard (04/15/2024 3:27 PM EDT) Triglycerides 78 <150 mg/dL [facility] Comment:Desirable Triglyceri de: less than 150 mg/dLBorderline High Triglyceride 150-199 mg/dLHigh Triglyceride: 200-499 mg/dLVery High Triglyceride: greater than or equal to 5OO mg/dL Cholesterol 205(H) <200 mg/dL [facility] Comment:Desirable Cholestero l: less than 200 mg/dLBorderline High Cholesterol: 200-239 mg/dLHigh Cholesterol: greater than 239 mg/dL LDL Cholesterol Calculated 127(H) <100 mg/dL [facility] Comment:Desirable LDL: less than 100 mg/dLNear Optimal/Above Optimal LDL: 110- 129 mg/dLBorderline High LDL: 130-159 mg/dLHigh LDL: 160-189 mg/dLVery High LDL: greater than or equal to 190 mg/dL HDL Cholesterol 63 >40 mg/dL [facility] Comment:Desirable HDL: great er than 40 mg/dL Note: This HDL assay may give artificially low results in patients with liver disease. Blood Venous blood specimen / Unknown 04/15/2024 3:27 PM EDT 04/15/2024 5:54 PM EDT us Jailyn Ojeda MD LAB BLOOD ORDERABLES Final Result [facility] [address] [place] [phone] * HEPATITIS C AB W/REFL TO HCV RNA, QN, PCR (07/06/2021 12:06 PM EST) HEPATITIS C ANTIBODY NON-REACT FRANCES NON-REACT FRANCES [facility] INDEX 0.05 <1.00 [facility] Comment: ?? HCV antibody was non-reactive. There is no laboratory ?? evidence of HCV infection. ?? In most cases, no further action is required. However, if recent HCV exposure is suspected, a test for HCV RNA (test code 14288) is suggested. ?? For additional information please refer to http://education.[employer]/faq/DRU44e5 (This link is being provided for informational/ educational purposes only.) ?? 07/06/2021 12:0 6 PM EST us Trina Luevano MD HISTORICAL/NON ORDERABLE LABS Final Result [facility] [address] from Last 3 Months or Most Recently Relevant to Health Maintenance Insurance MEDICARE [facility] Jacquie GRACE Henrandez Care Teams Calibration Specialist Relationship Specialty Start Date End Date Jailyn Ojeda MD [address] [place] [phone] PCP - General Internal Medicine 06/26/13
--- OUTSIDE RECORDS SUMMARY | 2024-08-20 17:41 | XMS_ITS | Encounter Summary ---
Author Organization [employer] Address [address] [facility] 7 [place] [address] Care Team Providers Care Skeet Operator Name Role Phone Jailyn Ojeda MD Primary Care Provider [phone] Encounter Details Date Type Department Care Team ([facility] st Contact Info) Description 04/15/2024 Orders Only [facility] CH[facility] MED & PEDS [address] [place] [address] Jailyn Ojeda MD [address] [place] [address] Transaminitis (Primary Dx); Hypercholesterolemia; Macrocytosis; Macrocytosis without [...] EST Narrative 06/11/2024 6:08 AM EST ? [facility] ?[address] ?[place] [address] ? Ultrasound Report ? Signed ? Patient: Kike Rodriguez ?MR#: [id number] ?? [id number] ? : 1955 ?Acct:[id number] ? Age/Sex: 68 / M ?ADM Date: 11/19/24 ? Loc: HO.US ? Attending Dr: Jailyn Ojeda MD ? Ordering Physician: Jailyn Ojeda MD ?? Date of Service: 05/07/24 ?? Procedure(s): US aorta ?? Accession Number(s): [id number] ? cc: Jailyn Ojeda MD ? EXAMINATION: [...] paper: J Am Stephen Radiol 2013;10 ?? (10):[id number]. (Available on [employer]) ? Electronically signed by: ??Oren Fernandez MD ??06/11/2024 06:05 AM EST ?? RP ? Dictated By: ?Oren Fernandez MD ? Signed By: ?<Electronically signed by Oren Fernandez MD in OV> ?06/11/24604 ? DD/ 1146 ? TD/TT: 05/07/24 1200 ? Chemical Sprayer: HS ? Procedure Note Nicola, Image - 06/11/2024 [place] [address] Ultrasound Report Signed Patient: Loyda Rodriguez#: [id number] : 5Acct:[id number] Age/Sex: 68 / MADM Date: 05/07/24 Loc: HO.US Attending Dr: Jailyn Ojeda MD Ordering Physician: Jailyn Ojeda MD Date of Service: 05/07/24 Procedure(s): US aorta Accession Number(s): [id number] cc: Jailyn Ojeda MD EXAMINATION: US RETROPERITONEAL [...] Am Stephen Radiol 2013;10 (10):789-794. (Available on [employer]iBloxr) Electronically signed by: Oren Fernandez MD 06/11/2024 06:05 AM EST Dictated By: Oren Fernandez MD Signed By: <Electronically signed by Oren Fernandez MD in OV> 06/11/24 0605 DD/ 1146 TD/TT: 05/07/24 1200 Chemical Sprayer: HS Jailyn Ojeda MD [facility] US PROCEDURES Edited Re sult - Final * Vitamin B1 (05/03/2024 3:40 PM EST) Vitamin B1 22 8 - 30 nmol/L [facility] Comment:Vitamin supplementat ion within 24 hours prior toblood draw may affect the accuracy of the results.This test was developed and its analytical performancecharacteristics have been determined by [employer] [place], [place]. It hasnot been cleared or approved by the U.S. Food and DrugAdministration. This assay has been validated pursuantto the CLIA regulations and is used for clinicalpurposes.THIS TEST WAS PERFORMED AT:[employer]/[id number] [place] [address]JYZVHGTNEYDA ARREDONDO MD,PHD Blood Venous blood specimen / Unknown 05/03/2024 3:40 PM EST 05/03/2024 5:52 PM EST us Jailyn Ojeda MD LAB BLOOD ORDERABLES Final Result Performing Organization Address [facility] Co de Phone Number [facility] [address] [place] [phone] * Vitamin B12/Folate, Serum Panel (05/03/2024 3:40 PM EST) Vitamin B12 650 200 - 900 pg/mL [facility] Comment:NORMAL 200-900 PG/ML INDETERMINATE 160-199 PG/ML DEFICIENT < 160 PG/ML Folate 15.2 > or = 4.0 ng/mL [facility] Comment:Reference Values:> o r = [...] BLOOD ORDERABLES Final Result Performing Organization Address [facility] Co de Phone Number [facility] [address] [place] [phone] documented in this encounter Visit Diagnoses Diagnosis Transaminitis- Primary Nonspecific elevation of levels of transaminase or lactic acid dehydrogenase (LDH) Hypercholesterolemia Pure hypercholesterolemia Macrocytosis Other specified diseases of blood and blood-forming organs Macrocytosis without anemia Other specified diseases of blood and blood-forming organs documented in this encounter Care Teams Skeet Operator Relationship Specialty Start Date End Date Jailyn Ojeda MD [address] [place] [phone] PCP - General Internal Medicine 06/26/13 documented as of this encounter
--- OUTSIDE RECORDS SUMMARY | 2024-08-20 17:41 | XMS_ITS | Encounter Summary ---
Author Organization [employer] Address [address] [place] [address] [facility] [place] [address] Care Team Providers Care Heel Top Lift Splitter Name Role Phone Jailyn Ojeda MD Primary Care Provider [phone] Reason for Referral * Consultation (Routine) - Authorized Specialty Diagnoses / Procedures Referred By Controbi t Referred To Contact Gastroenterology Diagnoses Positive colorectal cancer screening using Cologuard test Jailyn Ojeda MD [address] [place] [address] Phone: tel: fax: Soraida Cortes MD [address] [place] [phone] Phone: tel: fax: Referral ID Status Reason Start Date Expiration Date Visits Requested Visits Authorized [id number] Authorized Specialty Services Required 05/08/2025 1 1 Encounter Details Date Type Department Care Team (Late st Contact Info) Description 05/08/2024 Orders Only [facility] CH[facility] MED & PEDS [address] [place], [place] [phone] Jailyn Ojeda MD [address] [place] [address] [phone] Transaminitis (Primary Dx); Positive colorectal cancer screening [...] test documented in this encounter Care Teams Heel Top Lift Splitter Relationship Specialty Start Date End Date Jailyn Ojeda MD [address] [place] [phone] PCP - General Internal Medicine 06/26/13 documented as of this encounter
--- OUTSIDE RECORDS SUMMARY | 2024-08-20 17:41 | XMS_ITS | Encounter Summary ---
Author Organization [employer] Address 75 [facility] 7 [place] [address] Care Team Providers Care Director Of Cardiology Name Role Phone Jailyn Ojeda MD Primary Care Provider [phone] Reason for Visit * Reason Comments Med Refill Encounter Details Date Type Department Care Team ([facility] st Contact Info) Description 07/27/2024 Refill [facility] CHC MED & PEDS [address] [place], [place] [phone] Jailyn Ojeda MD [address] [place] [address] Social History Tobacco Use Types Packs/Day Years [...] on filedocumented in this encounter Care Teams Director Of Cardiology Relationship Specialty Start Date End Date Jailyn Ojeda MD [address] [place] [phone] PCP - General Internal Medicine 06/26/13 documented as of this encounter
--- OUTSIDE RECORDS SUMMARY | 2024-08-20 17:41 | XMS_ITS | Encounter Summary ---
Author Organization [employer] Address [address] [facility] 7t [place] [address] Care Team Providers Care Furnace Utility Operator Name Role Phone Jailyn Ojeda MD Primary Care Provider [phone] Encounter Details Date Type Department Care Team (Late st Contact Info) Description 08/20/2024 Orders Only GENERIC EXTERNAL DATA DEPARTMENT Provider, Generic External Data Social History Tobacco Use Types Packs/Day Years [...] FUNCTION PANEL Routine 08/20/2024 3:08 PM EST documented in this encounter Results * (ABNORMAL) Hepatic Function Panel (08/20/2024 3:08 PM EST) Bilirubin, Total 0.5 0.0 - 1.0 mg/dL [facility] Bilirubin, Direct 0.2 0.0 - 0.5 mg/dL [facility] Aspartate Amino Transferase 47(H) 5 - 37 U/L [facility] Alanine Aminotransferase 37 0 - 40 U/L [facility] Total Protein 7.8 6.5 - 8.0 g/dL [facility] Albumin Level 4.3 3.5 - 5.0 g/dL [facility] Alkaline Phosphatase 78 39 - 117 U/L [facility] 08/20/2024 3:08 PM EST 08/20/2024 3:08 PM EST us Generic External Data Provider LAB BLOOD ORDERAB LES Final Result [facility] [address] [place] [phone] documented in this encounter Visit Diagnoses Not on filedocumented in this encounter Care Teams Furnace Utility Operator Relationship Specialty Start Date End Date Jailyn Ojeda MD [address] [place] [phone] PCP - General Internal Medicine 06/26/13 documented as of this encounter
--- OUTSIDE RECORDS SUMMARY | 2024-08-20 17:41 | XMS_ITS | Encounter Summary ---
Author Organization [employer] Address [address] [place] [address] [place] [address] Care Team Providers Care Chair Upholsterer Name Role Phone Jailyn Ojeda MD Primary Care Provider [phone] Reason for Visit * Reason Comments Med Refill Encounter Details Date Type Department Care Team ([facility] st Contact Info) Description 06/13/2023 Refill [facility] CH[facility] MED & PEDS [address] [place] [address] Jailyn Ojeda MD [address] [place] [address] Social History Tobacco Use Types Packs/Day Years [...] on filedocumented in this encounter Care Teams Chair Upholsterer Relationship Specialty Start Date End Date Jailyn Ojeda MD [address] [place] [address] PCP - General Internal Medicine 06/26/13 documented as of this encounter
== END 2024-08-20 15:31 | disposition home or self-care (01) ==
PROVIDERS: PCP Internal Medicine; Visit Provider Nurse Practitioner Family
DX: R74.01 Elevation of levels of liver transaminase levels (principal); K76.89 Other specified diseases of liver; Z12.11 Encounter for screening for malignant neoplasm of colon; R19.5 Other fecal abnormalities
CPT/HCPCS: 99204

== ENCOUNTER 2024-08-20 13:59 | Outpatient (REF) | payer MEDICARE, MEDICAID, SELFPAY ==
[2024-08-20 16:23] LABS: Alanine Aminotransferase 37 U/L (0-40); Albumin Level 4.3 g/dL (3.5-5.0); Alkaline Phosphatase 78 U/L (39-117); Aspartate Amino Transferase 47 U/L (5-37); Bilirubin Direct 0.2 mg/dL (0.0-0.5); Bilirubin Total 0.5 mg/dL (0.0-1.0); Total Protein 7.8 g/dL (6.5-8.0)
--- OUTSIDE RECORDS SUMMARY | 2024-08-20 18:58 | XMS_ITS | Encounter Summary ---
Author Organization [employer] Address [address] [place] [address] [address] [place] [address] Care Team Providers Care Regional Sales Consultant Name Role Phone Jailyn Ojeda MD Primary Care Provider [phone]- [phone] Reason for Referral * Consultation (Routine) - Authorized Specialty Diagnoses / Procedures Referred By Controbi t Referred To Contact Gastroenterology Diagnoses Positive colorectal cancer screening using Cologuard test Jailyn Ojeda MD [address] [place] [address] Phone: tel: fax: Soraida Cortes MD [address] [place] [address] Phone: tel: fax: Referral ID Status Reason Start Date Expiration Date Visits Requested Visits Authorized [id number] Authorized Specialty Services Required 05/08/2025 1 1 Encounter Details Date Type Department Care Team (Late st Contact Info) Description 05/08/2024 Orders Only [facility] CHC MED & PEDS [address] [place], [place] [phone] Jailyn Ojeda MD [address] [place] [address] [phone] Transaminitis (Primary Dx); Positive colorectal cancer screening [...] test documented in this encounter Care Teams Regional Sales Consultant Relationship Specialty Start Date End Date Jailyn Ojeda MD [address] [place] [phone] PCP - General Internal Medicine 06/26/13 documented as of this encounter
--- OUTSIDE RECORDS SUMMARY | 2024-08-20 18:58 | XMS_ITS | Clinical Summary ---
Author Organization [employer] Address [address] [facility] 7t [place] [address] Care Team Providers Care Commercial Project Manager Name Role Phone Jailyn Ojeda MD Primary Care Provider [phone]- [phone] Allergies No known active allergies Medications cholecalciferol [...] DEPARTMENT Provider, Generic External Data 07/27/2024 Refill [facility] CHC MED & PEDS [address] [place] [address] Jailyn Ojeda MD 06/14/2024 Telephone [facility] [address] [facility] [place], [place] [phone] Jailyn Ojeda MD Results from Last 3 [...] your housing situation today? I have tip bilss 04/15/[address] you li [...] the past 12 months, has t he [employer], gas, oil or water company threatened to [...] Bilirubin, Total 0.5 0.0 - 1.0 mg/dL [facility] Bilirubin, Direct 0.2 0.0 - 0.5 mg/dL [facility] Aspartate Amino Transferase 47(H) 5 - 37 U/L [facility] Alanine Aminotransferase 37 0 - 40 U/L [facility] Total Protein 7.8 6.5 - 8.0 g/dL [facility] Albumin Level 4.3 3.5 - 5.0 g/dL [facility] Alkaline Phosphatase 78 39 - 117 U/L [facility] 08/20/2024 3:08 PM EST 08/20/2024 3:08 PM EST us Generic External Data Provider LAB BLOOD ORDERAB LES Final Result [facility] [address] [place] [phone] * (ABNORMAL) Cologuard?? colon cancer screening (04/30/2024 12:10 PM EST) Cologuard Result Positive( A) Negative 05/08/2024 2:17 AM EST If [facility] (CLIA #:[id number]) Comment: POSITIVE TEST RESULT. A positive Cologuard [...] Stokes. et al, N Engl J Med 2014;370(14):5168-2569.) Cologuard may produce a false negative or false positive result (no colorectal cancer or precancerous polyp present at colonoscopy follow up). A negative Cologuard test result does not guarantee the absence of CRC or advanced adenoma (pre-cancer). The current Cologuard screening interval is every 3 years. ([place] Cancer Society and U.S. Multi-Society Task Force). Cologuard performance data in a 10,000 patient pivotal study using colonoscopy as the reference method can be accessed at the following location: www.[employer]/results. Additional description of the Cologuard test process, warnings and precautions can be found at www.[employer].frrd.com. Stool specimen (specimen) 04/30/2024 12:10 PM EST 05/01/2024 1:15 PM EST us Jailyn Ojeda MD LAB MOLECULAR DIAGNOSTICS O RDERABLES Final Result [facility] (CLIA #:[id number]) [address] [place] [address], * (ABNORMAL) Lipid Panel, Standard (04/15/2024 3:27 PM EDT) Triglycerides 78 <150 mg/dL [facility] Comment:Desirable Triglyceri de: less than 150 mg/dLBorderline High Triglyceride 150-199 mg/dLHigh Triglyceride: 200-499 mg/dLVery High Triglyceride: greater than or equal to 5OO mg/dL Cholesterol 205(H) <200 mg/dL [facility] Comment:Desirable Cholestero l: less than 200 mg/dLBorderline High Cholesterol: 200-239 mg/dLHigh Cholesterol: greater than 239 mg/dL LDL Cholesterol Calculated 127(H) <100 mg/dL [facility] Comment:Desirable LDL: less than 100 mg/dLNear Optimal/Above Optimal LDL: 110- 129 mg/dLBorderline High LDL: 130-159 mg/dLHigh LDL: 160-189 mg/dLVery High LDL: greater than or equal to 190 mg/dL HDL Cholesterol 63 >40 mg/dL [facility] Comment:Desirable HDL: great er than 40 mg/dL Note: This HDL assay may give artificially low results in patients with liver disease. Blood Venous blood specimen / Unknown 04/15/2024 3:27 PM EDT 04/15/2024 5:54 PM EDT us Jailyn Ojeda MD LAB BLOOD ORDERABLES Final Result [facility] [address] [place] [phone] * HEPATITIS C AB W/REFL TO HCV RNA, QN, PCR (07/06/2021 12:06 PM EST) HEPATITIS C ANTIBODY NON-REACT FRANCES NON-REACT FRANCES [facility] INDEX 0.05 <1.00 [facility] Comment: ?? HCV antibody was non-reactive. There is no laboratory ?? evidence of HCV infection. ?? In most cases, no further action is required. However, if recent HCV exposure is suspected, a test for HCV RNA (test code 84332) is suggested. ?? For additional information please refer to http://education.[employer]/faq/HKS82d2 (This link is being provided for informational/ educational purposes only.) ?? 07/06/2021 12:0 6 PM EST us Trina Luevano MD HISTORICAL/NON ORDERABLE LABS Final Result [facility] [address] from Last 3 Months or Most Recently Relevant to Health Maintenance Insurance MEDICARE [facility] 44 [facility] Jacquie GRACE Hernandez Care Teams Commercial Project Manager Relationship Specialty Start Date End Date Jailyn Ojeda MD [address] [place] [phone] PCP - General Internal Medicine 06/26/13
--- OUTSIDE RECORDS SUMMARY | 2024-08-20 18:58 | XMS_ITS | Encounter Summary ---
Author Organization [employer] Address 75 [facility] 7t [place] [address] Care Team Providers Care Home Care Manager Name Role Phone Jailyn Ojeda MD Primary Care Provider [phone] Encounter Details Date Type Department Care Team [...] Bilirubin, Total 0.5 0.0 - 1.0 mg/dL [facility] Bilirubin, Direct 0.2 0.0 - 0.5 mg/dL [facility] Aspartate Amino Transferase 47(H) 5 - 37 U/L [facility] Alanine Aminotransferase 37 0 - 40 U/L [facility] Total Protein 7.8 6.5 - 8.0 g/dL [facility] Albumin Level 4.3 3.5 - 5.0 g/dL [facility] Alkaline Phosphatase 78 39 - 117 U/L [facility] 08/20/2024 3:08 PM EST 08/20/2024 3:08 PM EST us Generic External Data Provider LAB BLOOD ORDERAB LES Final Result [facility] [address] [place] [phone] [phone] documented in this encounter Visit Diagnoses Not on filedocumented in this encounter Care Teams Home Care Manager Relationship Specialty Start Date End Date Jailyn Ojeda MD [address] [place] [address] PCP - General Internal Medicine 06/26/13 documented as of this encounter
--- OUTSIDE RECORDS SUMMARY | 2024-08-20 18:58 | XMS_ITS | Encounter Summary ---
Author Organization [employer] Address 75 [facility] 7 [place] [address] Care Team Providers Care Maintenance Worker Name Role Phone Jailyn Ojeda MD Primary Care Provider [phone] Reason for Visit * Reason Comments Med Refill Encounter Details Date Type Department Care Team ([facility] st Contact Info) Description 07/27/2024 Refill [facility] CH[facility] MED & PEDS [address] [place], [place] [phone] Jailyn Ojeda MD [address] [place] [address] Social History Tobacco Use Types Packs/Day Years [...] on filedocumented in this encounter Care Teams Maintenance Worker Relationship Specialty Start Date End Date Jailyn Ojeda MD [address] [place] [phone] PCP - General Internal Medicine 06/26/13 documented as of this encounter
--- OUTSIDE RECORDS SUMMARY | 2024-08-20 18:58 | XMS_ITS | Encounter Summary ---
Author Organization [employer] Address [address] [place] [address] [place] [address] Care Team Providers Care Environmental Sciences Professor Name Role Phone Jailyn Ojeda MD Primary Care Provider [phone] Reason for Visit * Reason Comments Med Refill Encounter Details Date Type Department Care Team ([facility] st Contact Info) Description 06/13/2023 Refill [facility] CHC MED & PEDS [address] [place] [address] Jailyn Ojeda MD 505 [place] [address] Social History Tobacco Use Types Packs/Day Years [...] on filedocumented in this encounter Care Teams Environmental Sciences Professor Relationship Specialty Start Date End Date Jailyn Ojeda MD 505 [place] [address] PCP - General Internal Medicine 06/26/13 documented as of this encounter
--- OUTSIDE RECORDS SUMMARY | 2024-08-20 18:58 | XMS_ITS | Encounter Summary ---
Author Organization [employer] Address [address] [facility] 7 [place] [address] Care Team Providers Care Supervisor Line Department Name Role Phone Jailyn Ojeda MD Primary Care Provider [phone] Encounter Details Date Type Department Care Team ([facility] st Contact Info) Description 04/15/2024 Orders Only [facility] CHC MED & PEDS 505 [place] [address] Jailyn Ojeda MD 505 [place] [address] Transaminitis (Primary Dx); Hypercholesterolemia; Macrocytosis; Macrocytosis without [...] EST Narrative 06/11/2024 6:08 AM EST ? [facility] ?[address] ?[place] [address] ? Ultrasound Report ? Signed ? Patient: Kike Rodriguez ?MR#: [id number] ?? 198 ? : 1955 ?Acct:[id number] ? Age/Sex: 68 / M ?ADM Date: 11/19/24 ? Loc: HO.US ? Attending Dr: Jailyn Ojeda MD ? Ordering Physician: Jailyn Ojeda MD ?? Date of Service: 05/07/24 ?? Procedure(s): US aorta ?? Accession Number(s): [id number] ? cc: Jailyn Ojeda MD ? EXAMINATION: [...] paper: J Am Stephen Radiol 2013;10 ?? (10):[id number]. (Available on [employer]) ? Electronically signed by: ??Oren Fernandez MD ??06/11/2024 06:05 AM EST ?? RP ? Dictated By: ?Oren Fernandez MD ? Signed By: ?<Electronically signed by Oren Fernandez MD in OV> ?06/11/24604 ? DD/ 1146 ? TD/TT: 05/07/24 1200 ? Finance Associate: HS ? Procedure Note Nicola, Image - 06/11/2024 [place] [address] Ultrasound Report Signed Patient: Loyda Rodriguez#: [id number] 198 : 5Acct:[id number] Age/Sex: 68 / MADM Date: 05/07/24 Loc: HO.US Attending Dr: Jailyn Ojeda MD Ordering Physician: Jailyn Ojeda MD Date of Service: 05/07/24 Procedure(s): US aorta Accession Number(s): [id number] cc: Jailyn Ojeda MD EXAMINATION: US RETROPERITONEAL [...] Am Stephen Radiol 2013;10 (10):789-794. (Available on [employer]) Electronically signed by: Oren Fernandez MD 06/11/2024 06:05 AM EST Dictated By: Oren Fernandez MD Signed By: <Electronically signed by Oren Fernandez MD in OV> 06/11/24 0605 DD/ 1146 TD/TT: 05/07/24 1200 Finance Associate: HS Jailyn Ojeda MD [facility] [place] PROCEDURES Edited Re sult - Final * Vitamin B1 (05/03/2024 3:40 PM EST) Vitamin B1 22 8 - 30 nmol/L [facility] Comment:Vitamin supplementat ion within 24 hours prior toblood draw may affect the accuracy of the results.This test was developed and its analytical performancecharacteristics have been determined by [employer] [place], [place]. It hasnot been cleared or approved by the U.S. Food and DrugAdministration. This assay has been validated pursuantto the CLIA regulations and is used for clinicalpurposes.THIS TEST WAS PERFORMED AT:[employer]/[facility] [id number] [place] [address]JDZVIIANEYDA ARREDONDO MD,PHD Blood Venous blood specimen / Unknown 05/03/2024 3:40 PM EST 05/03/2024 5:52 PM EST us Jailyn Ojeda MD LAB BLOOD ORDERABLES Final Result Performing Organization Address [facility] Co de Phone Number [facility] [address] [place] [phone] * Vitamin B12/Folate, Serum Panel (05/03/2024 3:40 PM EST) Vitamin B12 650 200 - 900 pg/mL [facility] Comment:NORMAL 200-900 PG/ML INDETERMINATE 160-199 PG/ML DEFICIENT < 160 PG/ML Folate 15.2 > or = 4.0 ng/mL [facility] Comment:Reference Values:> o r = [...] BLOOD ORDERABLES Final Result Performing Organization Address [facility] Co de Phone Number [facility] [address] [place] [phone] documented in this encounter Visit Diagnoses Diagnosis Transaminitis- Primary Nonspecific elevation of levels of transaminase or lactic acid dehydrogenase (LDH) Hypercholesterolemia Pure hypercholesterolemia Macrocytosis Other specified diseases of blood and blood-forming organs Macrocytosis without anemia Other specified diseases of blood and blood-forming organs documented in this encounter Care Teams Supervisor Line Department Relationship Specialty Start Date End Date Jailyn Ojeda MD [address] [place] [phone] PCP - General Internal Medicine 06/26/13 documented as of this encounter
[2024-08-26 14:48] LABS: FIB-ALT 29 U/L (9-46); FIB-Alpha-2-Macroglobulin 197 mg/dL (106-279); FIB-Apolipoprotein A1 171 mg/dL (94-176); FIB-GGT 144 U/L (3-70); FIB-Haptoglobin 119 mg/dL (43-212); FIB-Total Bilirubin 0.3 mg/dL (0.2-1.2); Liver Fibrosis Score 0.34; Liver Fibrosis Stage F1-F2; Nec Inflam Act Grade A0; Nec Inflam Act Score 0.15
== END 2024-08-20 14:00 | disposition home or self-care (01) ==
LOC: HO.LAB 13:59
PROVIDERS: PCP Internal Medicine; Visit Provider Nurse Practitioner Family
DX: R74.01 Elevation of levels of liver transaminase levels (principal); K76.0 Fatty (change of) liver, not elsewhere classified; F17.210 Nicotine dependence, cigarettes, uncomplicated
CPT/HCPCS: 36415; 80076; 81596; 99202

== ENCOUNTER 2024-09-20 13:11 | Outpatient (REF) | payer MEDICARE, MEDICAID, SELFPAY ==
--- NOTE | ~2024-09-20 | CT_ITS ---
CLINICAL HISTORY: F17.210 - Nicotine dependence, cigarettes, uncomplicated CT lung cancer screening Technique: Axial CT images of the chest using low-dose technique. Effective radiation dose: DLP 90.1 mGy. Cm, CTDIvol 2.19 mGy Referring provider counseled the patient on shared decision-making for LDCT screening. Additional counseling was provided on smoking cessation. Comparison: CR/NV - RIBS LEFT PA CHEST [id number] - 03/01/16 16:01 EDT Findings: Lung nodules RUL: None RML: None RLL: None DEREK: 2 mm nodule laterally image 72. Lingula: None LLL: None COPD: Centrilobular emphysema is mild. Pleural spaces: Biapical pleural-parenchymal scarring. Coronary artery calcifications: Mild. Limited upper abdomen: Hepatic steatosis. Volume redistribution of the liver probable cirrhosis. No splenomegaly. Other: None. Impression: LungRADS 2 - Benign Appearance: Continue annual screening with low dose Chest CT in 12 months. ##L2# ACR LungRADS Categories Category 1: Normal; continue annual screening Category 2: Benign appearance or behavior, continue annual screening Category 3: Probably benign, [address] recommended Category 4A: Suspicious, [address] recommended; may consider PET/CT Category 4B: Suspicious, Additional diagnostics and/or tissue sampling recommended Category 4X: Suspicious, Additional diagnostics and/or tissue sampling Category 0: Recalls (incomplete screen due to Incomplete coverage, Noise, Respiratory motion, Expiration, Obscured by acute abnormality) This document has been electronically signed by: Greg Albrecht MD on 09/23/2024 17:04:24
--- OUTSIDE RECORDS SUMMARY | 2024-09-20 15:01 | XMS_ITS | Encounter Summary ---
Author Organization [employer] Address [address] [place] [address] [place] [address] Care Team Providers Care Gas Dispatcher Name Role Phone Jailyn Ojeda MD Primary Care Provider [phone] Reason for Visit * Reason Comments Med Refill Encounter Details Date Type Department Care Team ([facility] st Contact Info) Description 06/13/2023 Refill [facility] CHC MED & PEDS 505 [place], [place] [phone] Jailyn Ojeda MD 505 [place] [address] Social History Tobacco Use Types Packs/Day Years [...] on filedocumented in this encounter Care Teams Gas Dispatcher Relationship Specialty Start Date End Date Jailyn Ojeda MD 505 [place] [address] PCP - General Internal Medicine 06/26/13 documented as of this encounter
--- OUTSIDE RECORDS SUMMARY | 2024-09-20 15:01 | XMS_ITS | Encounter Summary ---
Author Organization [employer] Address [address] [facility] 7 [place] [address] Care Team Providers Care Antenna Design Engineer Name Role Phone Jailyn Ojeda MD Primary Care Provider [phone] Encounter Details Date Type Department Care Team ([facility] st Contact Info) Description 04/15/2024 Orders Only [facility] CHC MED & PEDS 505 [place] [address] Jailyn Ojeda MD 505 [place] [address] Transaminitis (Primary Dx); Hypercholesterolemia; Macrocytosis; Macrocytosis without [...] EST Narrative 06/11/2024 6:08 AM EST ? [facility] ?[address] ?[place] [address] ? Ultrasound Report ? Signed ? Patient: Kike Rodriguez ?MR#: [id number] ?? 198 ? : 1955 ?Acct:[id number] ? Age/Sex: 68 / M ?ADM Date: 11/19/24 ? Loc: HO.US ? Attending Dr: Jailyn Ojeda MD ? Ordering Physician: Jailyn Ojeda MD ?? Date of Service: 05/07/24 ?? Procedure(s): US aorta ?? Accession Number(s): [id number] ? cc: Jailyn Ojeda MD ? EXAMINATION: [...] paper: J Am Stephen Radiol 2013;10 ?? (10):78979. (Available on [employer]) ? Electronically signed by: ??Oren Fernandez MD ??06/11/2024 06:05 AM EST ?? RP ? Dictated By: ?Oren Fernandez MD ? Signed By: ?<Electronically signed by Oren Fernandez MD in OV> ?06/11/24604 ? DD/ 1146 ? TD/TT: 05/07/24 1200 ? [employer] Port[employer] Machine: HS ? Procedure Note Nicola, Image - 06/11/2024 [place] [address] Ultrasound Report Signed Patient: Loyda Rodriguez#: [id number] 198 : 5Acct:[id number] Age/Sex: 68 / MADM Date: 05/07/24 Loc: HO.US Attending Dr: Jailyn Ojeda MD Ordering Physician: Jailyn Ojeda MD Date of Service: 05/07/24 Procedure(s): US aorta Accession Number(s): [id number] cc: Jailyn Ojeda MD EXAMINATION: US RETROPERITONEAL [...] Am Stephen Radiol 2013;10 (10):789-794. (Available on [employer]) Electronically signed by: Oren Fernandez MD 06/11/2024 06:05 AM EST Dictated By: Oren Fernandez MD Signed By: <Electronically signed by Oren Fernandez MD in OV> 06/11/24 0605 DD/ 1146 TD/TT: 05/07/24 1200 [employer]: HS Jailyn Ojeda MD [facility] US PROCEDURES Edited Re sult - Final * Vitamin B1 (05/03/2024 3:40 PM EST) Vitamin B1 22 8 - 30 nmol/L [facility] Comment:Vitamin supplementat ion within 24 hours prior toblood draw may affect the accuracy of the results.This test was developed and its analytical performancecharacteristics have been determined by [employer] [place], [place]. It hasnot been cleared or approved by the U.S. Food and DrugAdministration. This assay has been validated pursuantto the CLIA regulations and is used for clinicalpurposes.THIS TEST WAS PERFORMED AT:[employer]/[id number] [place] [address]AWUUIMGNEYDA ARREDONDO MD,PHD Blood Venous blood specimen / Unknown 05/03/2024 3:40 PM EST 05/03/2024 5:52 PM EST us Jailyn Ojeda MD LAB BLOOD ORDERABLES Final Result Performing Organization Address [facility] Co de Phone Number [facility] [address] [place] [phone] * Vitamin B12/Folate, Serum Panel (05/03/2024 3:40 PM EST) Vitamin B12 650 200 - 900 pg/mL [facility] Comment:NORMAL 200-900 PG/ML INDETERMINATE 160-199 PG/ML DEFICIENT < 160 PG/ML Folate 15.2 > or = 4.0 ng/mL [facility] Comment:Reference Values:> o r = [...] BLOOD ORDERABLES Final Result Performing Organization Address [facility] Co de Phone Number [facility] [address] [place] [phone] documented in this encounter Visit Diagnoses Diagnosis Transaminitis- Primary Nonspecific elevation of levels of transaminase or lactic acid dehydrogenase (LDH) Hypercholesterolemia Pure hypercholesterolemia Macrocytosis Other specified diseases of blood and blood-forming organs Macrocytosis without anemia Other specified diseases of blood and blood-forming organs documented in this encounter Care Teams Antenna Design Engineer Relationship Specialty Start Date End Date Jailyn Ojeda MD [address] [place] [phone] PCP - General Internal Medicine 06/26/13 documented as of this encounter
--- OUTSIDE RECORDS SUMMARY | 2024-09-20 15:01 | XMS_ITS | Encounter Summary ---
Author Organization [employer] Address [address] [place] [address] [address] [address] Care Team Providers Care It Compliance Analyst Name Role Phone Jailyn Ojeda MD Primary Care Provider [phone] Reason for Referral * Consultation (Routine) - Closed Specialty Diagnoses / Procedures Referred By Controbi t Referred To Contact Gastroenterology Diagnoses Positive colorectal cancer screening using Cologuard test Jailyn Ojeda MD [address] [place] [phone] Phone: tel: fax: Soraida Cortes MD [address] [place] [phone] Phone: tel: fax: Referral ID Status Reason Start Date Expiration Date V isits Requested Visits Authorized [id number] Closed Specialty Services Required 05/08/2024 05/08/2025 1 1 Encounter Details Date Type Department Care Team (Late st Contact Info) Description 05/08/2024 Orders Only [facility] CHC MED & PEDS [address] [place], [place] [phone] Jailyn Ojeda MD [address] [place] [phone] Transaminitis (Primary Dx); Positive colorectal cancer screening [...] test documented in this encounter Care Teams It Compliance Analyst Relationship Specialty Start Date End Date Jailyn Ojeda MD [address] [place] [phone] PCP - General Internal Medicine 06/26/13 documented as of this encounter
--- OUTSIDE RECORDS SUMMARY | 2024-09-20 15:01 | XMS_ITS | Clinical Summary ---
Author Organization [facility] Address [address] [facility] 7t [place] [address] Care Team Providers Care Plumbing Designer Name Role Phone Jailyn Ojeda MD Primary Care Provider [phone] Allergies No known active allergies Medications cholecalciferol (Vitamin D-3) 25 MCG (1000 UT) capsule Take 1 capsule by mouth Once per day. 0 Active B Complex Vitamins (RA B-Complex with B-12) tablet Take by mouth. 0 Active Blood Pressure kitIndications:El evated BP without diagnosis of hypertension BP check Daily 1 kit 4 Active atorvastatin (Lipitor) 20 MG tabletIndications :Hypercholesterol emia Take 1 tablet (20 mg) by mouth Once per day. 30 tablet 11 4 04/15/20 25 Active co-enzyme Q-10 30 MG capsuleIndication s:Hypercholestero lemia Take 1 capsule (30 mg) by mouth Once per day. 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 7 [place] [address] Provider, Population Health Generic 08/20/2024 Orders Only GENERIC EXTERNAL DATA DEPARTMENT Provider, Generic External Data 07/27/2024 Refill [facility] CHC MED & PEDS [address] [place] [address] Jailyn Ojeda MD from Last 3 Months Immunizations Name Administration [...] Procedure Name Priority Date/Time Associated Diagnosis Comments LIVER FIBROSIS, FIBROTEST ACTITEST PANEL Routine 08/20/2024 3:08 PM EST HEPATIC FUNCTION PANEL Routine 08/20/2024 3:08 PM [...] Relevant to Health Maintenance Results * (ABNORMAL) Liver Fibrosis (HCV), FibroTest-ActiTest Panel (08/20/2024 3:08 PM EST) Liver Fibrosis Score 0.34 [facility] Liver Fibrosis Stage F1-F2 [facility] Liver Fibrosis Interpretation SEE NOTE [facility] Comment:minimal fibrosisFibr o Test Score (f) Metavir Score f>=0 and f<=0.21 : F0 (no fibrosis)f>0.21 and f<=0.27 : F0-F1 (no fibrosis)f>0.27 and f<=0.31 : F1 (minimal fibrosis)f>0.31 and f<=0.48 : F1-F2 (minimal fibrosis)f>0.48 and f<=0.58 : F2 (moderate fibrosis)f>0.58 and f<=0.72 : F3 (advanced fibrosis)f>0.72 and f<=0.74 : F3-F4 (advanced fibrosis)f>0.74 and f<=1.00 : F4 (severe fibrosis) Nec Inflam Act Score 0.15 [facility] Nec Inflam Act Grade A0 [facility] Nec Inflam Act Interpretation SEE NOTE [facility] Comment:no activityActiTest Score (a) Metavir Score a>=0 and a<=0.17 : A0 (no activity)a>0.17 and a<=0.29 : A0-A1 (no activity)a>0.29 and a<=0.36 : A1 (minimal activity)a>0.36 and a<=0.52 : A1-A2 (minimal activity)a>0.52 and a<=0.60 : A2 (significant activity)a>0.60 and a<=0.62 : A2-A3 (significant activity)a>0.62 and a<=1.00 : A3 (severe activity) EVZ-Dzejh-0-Macroglo bulin 197 106 - 279 mg/dL [facility] FIB-Haptoglobin 119 43 - 212 mg/dL [facility] FIB-Apolipoprotein A1 171 94 - 176 mg/dL [facility] FIB-Total Bilirubin 0.3 0.2 - 1.2 mg/dL [facility] FIB-GGT 144(A) 3 - 70 U/L [facility] FIB-ALT 29 9 - 46 U/L [facility] Reference ID [id number] [facility] Footnote SEE NOTE [facility] Comment: The reliability of results is dependent on compliance withthe preanalytical and analytical conditions recommended by[employer]. The tests have to be deferred for: acutehemolysis, acute hepatitis, acute inflammation, extrahepatic cholestasis. The advice of a specialist should besought for interpretation in chronic hemolysis and Gilbert'ssyndrome. The test interpretation is not validated in livertransplant patients. Isolated extreme values of one of thecomponents should lead to caution in interpreting theresults. In case of discordance between a biopsy result ari test, it is recommended to seek the advice of aspecialist. The causes of these discordances could be due toa flaw of the test or to a flaw in the biopsy: i.e. a liverbiopsy has a 33% variability rate for one fibrosis stage.FibroTest is interpretable for chronic hepatitis B and C,alcoholic and non alcoholic steatosis. ActiTest isinterpretable for chronic hepatitis B and C.The performance characteristics have been determined by[facility]. Ithas not been cleared or approved by the U.S. Food and DrugAdministration. Performance characteristics refer to theanalytical performance of the test.[employer], the associated logo, [employer] and all associated [employer] singh are theregistered trademarks of [employer]. All third partymarks - (R) and (TM) - are the property of their respectiveowners. (C) [id number] [employer]. Allrights reserved.THIS TEST WAS PERFORMED AT:[employer] [id number] [place], [place] ??[address]QGLTVCHELSEA OSUNA MD,PHD,THOMAS 08/20/2024 3:08 PM EST 08/20/2024 3:08 PM EST Generic External Data Provider LAB BLOOD ORDERAB LES Final Result Performing Organization Address [facility] Co de Phone Number [facility] [address] [place] [phone] * (ABNORMAL) Hepatic Function Panel (08/20/2024 3:08 [...] 3:08 PM EST 08/20/2024 3:08 PM EST Generic External Data Provider LAB BLOOD ORDERAB LES Final Result Performing Organization Address [facility] Phone Number [facility] [address] [place] [phone] * (ABNORMAL) Cologuard?? colon cancer screening (04/30/2024 12:10 PM EST) Cologuard Result Positive( A) Negative 05/08/2024 2:17 AM EST [facility] (CLIA #:[id number]) Comment: POSITIVE TEST RESULT. A positive Cologuard [...] (Inocencia Lerner al, N Engl J Med 2014;370(14):9393-9602.) Cologuard may produce a false negative or false positive result (no colorectal cancer or precancerous polyp present at colonoscopy follow up). A negative Cologuard test result does not guarantee the absence of CRC or advanced adenoma (pre-cancer). The current Cologuard screening interval is every 3 years. ([place] Cancer Society and U.S. Multi-Society Task Force). Cologuard performance data in a 10,000 patient pivotal study using colonoscopy as the reference method can be accessed at the following location: www.[employer]/results. Additional description of the Cologuard test process, warnings and precautions can be found at www.Basic-FitogDotAlignrd.com. Stool specimen (specimen) 04/30/2024 12:10 PM EST 05/01/2024 1:15 PM EST us Jailyn Ojeda MD LAB MOLECULAR DIAGNOSTICS O RDERABLES Final Result [facility] (CLIA #:[id number]) [place] [address], * (ABNORMAL) Lipid Panel, Standard (04/15/2024 3:27 PM EDT) Triglycerides 78 <150 mg/dL [facility] Comment:Desirable Triglyceri de: less than 150 mg/dLBorderline High Triglyceride 150-199 mg/dLHigh Triglyceride: 200-499 mg/dLVery High Triglyceride: greater than or equal to 5OO mg/dL Cholesterol 205(H) <200 mg/dL [facility] Comment:Desirable Cholestero l: less than 200 mg/dLBorderline High Cholesterol: 200-239 mg/dLHigh Cholesterol: greater than 239 mg/dL LDL Cholesterol Calculated 127(H) <100 mg/dL [facility] Comment:Desirable LDL: less than 100 mg/dLNear Optimal/Above Optimal LDL: 110- 129 mg/dLBorderline High LDL: 130-159 mg/dLHigh LDL: 160-189 mg/dLVery High LDL: greater than or equal to 190 mg/dL HDL Cholesterol 63 >40 mg/dL [facility] Comment:Desirable HDL: great er than 40 mg/dL Note: This HDL assay may give artificially low results in patients with liver disease. Blood Venous blood specimen / Unknown 04/15/2024 3:27 PM EDT 04/15/2024 5:54 PM EDT Jailyn Ojeda MD LAB BLOOD ORDERABLES Final Result [facility] [address] [place] [phone] [phone] * HEPATITIS C AB W/REFL TO HCV RNA, QN, PCR (07/06/2021 12:06 PM EST) HEPATITIS C ANTIBODY NON-REACT [facility] NON-REACT [facility] INDEX 0.05 <1.00 [facility] Comment: ?? HCV antibody was non-reactive. There is no laboratory ?? evidence of HCV infection. ?? In most cases, no further action is required. However, if recent HCV exposure is suspected, a test for HCV RNA (test code 29094) is suggested. ?? For additional information please refer to http://education.[employer]'s/faq/EPJ35m7 (This link is being provided for informational/ educational purposes only.) ?? 07/06/2021 12:0 6 PM EST us Trina Luevano MD HISTORICAL/NON ORDERABLE LABS Final Result [facility] [address] from Last 3 Months or Most Recently Relevant to Health Maintenance Insurance MEDICARE [facility] Care Teams Plumbing Designer Relationship Specialty Start Date End Date Jailyn Ojeda MD [address] [place] [address] GRACE Hernandez [phone] PCP - General Internal Medicine 06/26/13
== END 2024-09-20 13:12 | disposition home or self-care (01) ==
LOC: HO.CT 13:11
PROVIDERS: PCP Internal Medicine; Visit Provider Physician Assistant Medical
DX: Z12.2 Encounter for screening for malignant neoplasm of respiratory organs (principal); F17.210 Nicotine dependence, cigarettes, uncomplicated
CPT/HCPCS: 71271

== ENCOUNTER → 2024-09-20 13:13 | Outpatient (BNV) | payer MEDICARE, MEDICAID, SELFPAY | PROVIDERS: PCP Internal Medicine; Visit Provider Radiology Diagnostic Radiology | DX: F17.210 Nicotine dependence, cigarettes, uncomplicated (principal) | CPT/HCPCS: 71271 ==

== ENCOUNTER 2024-09-25 14:57 | Outpatient (REF) | payer MEDICARE, MEDICAID, SELFPAY ==
--- NOTE | ~2024-09-25 | US_ITS ---
EXAMINATION: US ABDOMEN LIMITED WITH LIVER ELASTOGRAPHY HISTORY: K76.0 - Fatty (change of) liver, not elsewhere classified TECHNIQUE: Real-time grayscale ultrasound imaging of the right upper quadrant was performed and images were reviewed. COMPARISON: There are no prior studies for comparison. FINDINGS: Liver: The right lobe of the liver measures 15.0 cm in size. The left lobe of the liver measures 10.8 cm in size. The liver demonstrates increased echotexture, consistent with steatosis. Multiple simple cysts are noted including an 8 x 5 x 7 mm cyst in the right lobe and 8 x 6 x 9 mm and 4 x 4 by 5 mm in the left lobe. No intrahepatic biliary ductal dilatation is identified. There is normal hepatopedal flow in the portal vein. Ultrasound elastography of the liver was performed with 10 separate measurements of the liver parenchyma with the patient in the supine position. Measurements were obtained approximately 2 cm below Elena's capsule and perpendicular to the capsule. Images are of satisfactory quality. The median shear wave velocity is 1.44 m/s. The interquartile range/median (IQR/median) is 0.22. Gallbladder and biliary tree: The gallbladder is unremarkable, without evidence of calculi, wall thickening, or pericholecystic fluid. There is no sonographic Malloy sign. The common bile duct is normal in caliber measuring 3 mm. Right Kidney: The right kidney measures 9.9 cm in length. The right kidney is unremarkable, without evidence of masses, hydronephrosis, or calculi. Pancreas: The pancreatic head, neck, and body are unremarkable. The pancreatic tail is obscured by bowel gas. Abdominal aorta and inferior vena cava: The visualized portions of the abdominal aorta and inferior vena cava are normal in caliber. There is no free fluid in the right upper quadrant. US/US abdomen arreola w elastography IMPRESSION: Hepatomegaly and hepatic steatosis. Hepatic cysts as described. The median shear wave velocity in the liver is 1.44 m/s, corresponding to a median liver stiffness of 6.39 kPa. The IQR/median value is 0.22. This is indicative of a poor quality data set, and the estimated liver stiffness may be unreliable. Findings are indicative of a low elastography value which rules out advanced chronic liver disease in asymptomatic patients. REFERENCE: Society of Radiologists in Ultrasound Liver Stiffness Thresholds (2020): LIVER STIFFNESS THRESHOLDS: *Shear wave velocity less than 1.3 m/s (Liver Stiffness equal or less than 5 kPa): High probability of being normal. *Shear wave velocity less than 1.7 m/s (Liver Stiffness less than 9 kPa): In the absence of other known clinical signs, rules out compensated advanced chronic liver disease. *Shear wave velocity between 1.7-2.1 m/s (Liver Stiffness 9-13 kPa): Suggestive of compensated advanced chronic liver disease but need further test for confirmation. *Shear wave velocity between 2.1-2.4 m/s (Liver Stiffness 13-17 kPa): Rules in compensated advanced chronic liver disease. *Shear wave velocity greater than 2.4 m/s (Liver Stiffness over 17 kPa): Suggestive of clinically significant portal hypertension. QUALITY OF DATA SET: *IQR/Median value equal or less than 0.15 implies a quality data set. *IQR/Median value over 0.15 implies a poor quality data set. SIGNIFICANT CHANGE FROM PRIOR EXAM: Significant change if liver stiffness measurement is 10% or greater from prior exam. OTHER CONSIDERATIONS: The stage of liver fibrosis may be overestimated in the setting of acute hepatitis, liver inflammation, elevated liver function tests, hepatic vascular congestion, obstructive cholestasis, non-fasting state, and infiltrative diseases such as amyloidosis and lymphoma. In some patients with NAFLD, the liver stiffness thresholds for compensated advanced chronic liver disease may be lower. In causes other than viral hepatitis and NAFLD, liver stiffness thresholds are not well established. Electronically signed by: Anton Escobedo MD 09/26/2024 07:09 AM EDT
--- OUTSIDE RECORDS SUMMARY | 2024-09-25 17:08 | XMS_ITS | Encounter Summary ---
Author Organization [employer] Address [address] [place] [address] [place] [address] Care Team Providers Care Tester Waste Disposal Leakage Name Role Phone Jailyn Ojeda MD Primary Care Provider [phone] Reason for Referral * Consultation (Routine) - Closed Specialty Diagnoses / Procedures Referred By Controbi t Referred To Contact Gastroenterology Diagnoses Positive colorectal cancer screening using Cologuard test Jailyn Ojeda MD [address] [place] [address] Phone: tel: fax: Soraida Cortes MD [address] [place] [address] Phone: tel: fax: Referral ID Status Reason Start Date Expiration Date V isits Requested Visits Authorized [id number] Closed Specialty Services Required 05/08/2024 05/08/2025 1 1 Encounter Details Date Type Department Care Team (Late st Contact Info) Description 05/08/2024 Orders Only [facility] MED & PEDS [address] [place], [place] [phone] Jailyn Ojeda MD [address] [place] [address] [phone] Transaminitis (Primary Dx); Positive colorectal cancer screening [...] test documented in this encounter Care Teams Tester Waste Disposal Leakage Relationship Specialty Start Date End Date Jailyn Ojeda MD [address] [place] [phone] PCP - General Internal Medicine 06/26/13 documented as of this encounter
--- OUTSIDE RECORDS SUMMARY | 2024-09-25 17:08 | XMS_ITS | Encounter Summary ---
Author Organization [employer] Address [address] [facility] 7t [place] [address] Care Team Providers Care Yarn Sizer Name Role Phone Jailyn Ojeda MD Primary Care Provider [phone] Encounter Details Date Type Department Care Team (Late st Contact Info) Description 09/20/2024 Orders Only [facility] External Provider, [facility] Social History Tobacco Use Types Packs/Day Years [...] Procedure Name Priority Date/Time Associated Diagnosis Comments LDCT LUNG SCREENING Routine 09/23/2024 5 :04 PM EDT documented in this encounter Results * CT Lung Screening Low dose (09/23/2024 5:04 PM EDT) Anatomical Region Laterality Modality Lung Computed Tomogra phy 09/23/2024 5:04 PM EDT Narrative 09/23/2024 5:06 PM EDT ? [facility] ?[address] ?[place] [address] ? CT Scan Report ? Signed ? Patient: Kike Rodriguez ?MR#: [id number] ?? 198 ? : 1955 ?Acct:[id number] ? Age/Sex: 68 / M ?ADM Date: 09/20/24 ? Loc: HO.CT ? Attending Dr: Cat Graff PA-C ? Ordering Physician: Cat Graff PA-C ?? Date of Service: 09/20/24 ?? Procedure(s): CT lung screening ?? Accession Number(s): [id number] ? cc: Jailyn Ojeda MD; Cat Graff PA-C ? Report Number: ?? [id number]: Total DLP = ?? 98.00 mGy-cm ? CLINICAL HISTORY: F17.210 - Nicotine dependence, cigarettes, uncomplicated ? CT lung cancer screening ? Technique: Axial CT images of the chest using low-dose technique. ?? Effective radiation dose: DLP 90.1 mGy. Cm, CTDIvol 2.19 mGy ? Referring provider counseled the patient on shared decision-making for ?? LDCT screening. Additional counseling was provided on smoking cessation. ? Comparison: CR/VT - RIBS LEFT PA CHEST [id number] - 03/01/16 16:01 EDT ? Findings: ?? Lung nodules ?? RUL: None ?? RML: None ?? RLL: None ?? DEREK: 2 mm nodule laterally image 72. ?? Lingula: None ?? LLL: None ? COPD: Centrilobular emphysema is mild. ?? Pleural spaces: Biapical pleural-parenchymal scarring. ?? Coronary artery calcifications: Mild. ?? Limited upper abdomen: Hepatic steatosis. Volume redistribution of the ?? liver probable cirrhosis. No splenomegaly. ?? Other: None. ? Impression: ?? LungRADS 2 - Benign Appearance: Continue annual screening with low dose ?? Chest CT in 12 months. ? ##L2# ? ACR LungRADS Categories ?? Category 1: Normal; continue annual screening ?? Category 2: Benign appearance or behavior, continue annual screening ?? Category 3: Probably benign, [address] recommended ?? Category 4A: Suspicious, [address] recommended; may consider PET/CT ?? Category 4B: Suspicious, Additional diagnostics and/or tissue sampling ?? recommended ?? Category 4X: Suspicious, Additional diagnostics and/or tissue sampling ?? Category 0: Recalls (incomplete screen due to Incomplete coverage, Noise, ?? Respiratory motion, Expiration, Obscured by acute abnormality) ? This document has been electronically signed by: Greg Albrecht MD on ?? 09/23/2024 17:04:24 ? Dictated By: ?Greg Albrecht MD ? Signed By: ?<Electronically signed by Greg Albrecht MD in OV> ?09/23/241704 ? DD/ 03 ? TD/TT: 09/23/241703 ? Ceramics Artist: ? Procedure Note Marian Petersen - 09/23/[address] [place] [address] CT Scan Report Signed Patient: Loyda Rodriguez#: [id number] 198 : 5Acct:[id number] Age/Sex: 68 / MADM Date: 09/20/24 Loc: HO.CT Attending Dr: Cat Graff PA-C Ordering Physician: Cat Graff PA-C Date of Service: 09/20/24 Procedure(s): CT lung screening Accession Number(s): [id number] cc: Jailyn Ojeda MD; Cat Graff PA-C Report Number: [id number]: Total DLP = 98.00 mGy-cm CLINICAL HISTORY: F17.210 - Nicotine dependence, cigarettes, uncomplicated CT lung cancer screening Technique: Axial CT images of the chest using low-dose technique. Effective radiation dose: DLP 90.1 mGy. Cm, CTDIvol 2.19 mGy Referring provider counseled the patient on shared decision-making for LDCT screening. Additional counseling was provided on smoking cessation. Comparison: CR/VT - RIBS LEFT PA CHEST [id number] - 03/01/16 16:01 EDT Findings: Lung nodules RUL: None RML: None RLL: None DEREK: 2 mm nodule laterally image 72. Lingula: None LLL: None COPD: Centrilobular emphysema is mild. Pleural spaces: Biapical pleural-parenchymal scarring. Coronary artery calcifications: Mild. Limited upper abdomen: Hepatic steatosis. Volume redistribution of the liver probable cirrhosis. No splenomegaly. Other: None. Impression: LungRADS 2 - Benign Appearance: Continue annual screening with low dose Chest CT in 12 months. ##L2# ACR LungRADS Categories Category 1: Normal; continue annual screening Category 2: Benign appearance or behavior, continue annual screening Category 3: Probably benign, [address] recommended Category 4A: Suspicious, [address] recommended; may consider PET/CT Category 4B: Suspicious, Additional diagnostics and/or tissue sampling recommended Category 4X: Suspicious, Additional diagnostics and/or tissue sampling Category 0: Recalls (incomplete screen due to Incomplete coverage, Noise, Respiratory motion, Expiration, Obscured by acute abnormality) This document has been electronically signed by: Greg Albrecht MD on 09/23/2024 17:04:24 Dictated By: Greg Albrecht MD Signed By: <Electronically signed by Greg Albrecht MD in OV> 09/23/241704 DD/ 03 TD/TT: 09/23/241703 Ceramics Artist: [facility] External Provider IMG CT PROCEDURES Final Result documented in this encounter Visit Diagnoses Not on filedocumented in this encounter Care Teams Yarn Sizer Relationship Specialty Start Date End Date Jailyn Ojeda MD [address] [place] [phone] PCP - General Internal Medicine 06/26/13 documented as of this encounter
--- OUTSIDE RECORDS SUMMARY | 2024-09-25 17:08 | XMS_ITS | Encounter Summary ---
Author Organization [employer] Address [address] [facility] 7 [place] [address] Care Team Providers Care Hospice Manager Name Role Phone Jailyn Ojeda MD Primary Care Provider [phone] Encounter Details Date Type Department Care Team ([facility] st Contact Info) Description 04/15/2024 Orders Only [facility] MED & PEDS [address] [place] [address] Jailyn Ojeda MD [address] [place] [address] Transaminitis (Primary Dx); Hypercholesterolemia; Macrocytosis; Macrocytosis without [...] EST Narrative 06/11/2024 6:08 AM EST ? [facility] ?[address] ?[place] [address] ? Ultrasound Report ? Signed ? Patient: Kike Rodriguez ?MR#: [id number] ?? 198 ? : 1955 ?Acct:[id number] ? Age/Sex: 68 / M ?ADM Date: 11/19/24 ? Loc: HO.US ? Attending Dr: Jailyn Ojeda MD ? Ordering Physician: Jailyn Ojeda MD ?? Date of Service: 05/07/24 ?? Procedure(s): US aorta ?? Accession Number(s): [id number] ? cc: Jailyn Ojeda MD ? EXAMINATION: [...] paper: J Am Stephen Radiol 2013;10 ?? (10):[id number]. (Available on [employer]) ? Electronically signed by: ??Oren Fernandez MD ??06/11/2024 06:05 AM EST ?? RP ? Dictated By: ?Oern Fernandez MD ? Signed By: ?<Electronically signed by Oren Fernandez MD in OV> ?06/11/24604 ? DD/ 1146 ? TD/TT: 05/07/24 1200 ? Manager Steel: HS ? Procedure Note Nicola, Image - 06/11/2024 [place] [address] Ultrasound Report Signed Patient: Loyda Rodriguez#: [id number] 198 : 5Acct:[id number] Age/Sex: 68 / MADM Date: 05/07/24 Loc: HO.US Attending Dr: Jailyn Ojeda MD Ordering Physician: Jailyn Ojeda MD Date of Service: 05/07/24 Procedure(s): US aorta Accession Number(s): [id number] cc: Jailyn Ojeda MD EXAMINATION: US RETROPERITONEAL [...] Am Stephen Radiol 2013;10 (10):789-794. (Available on [email or web address]) Electronically signed by: Oren Fernandez MD 06/11/2024 06:05 AM EST Dictated By: Oren Fernandez MD Signed By: <Electronically signed by Oren Fernandez MD in OV> 06/11/24 0605 DD/ 1146 TD/TT: 05/07/24 1200 Manager Steel: HS Jailyn Ojeda MD [facility] US PROCEDURES Edited Re sult - Final * Vitamin B1 (05/03/2024 3:40 PM EST) Vitamin B1 22 8 - 30 nmol/L [facility] Comment:Vitamin supplementat ion within 24 hours prior toblood draw may affect the accuracy of the results.This test was developed and its analytical performancecharacteristics have been determined by [employer] [place], [place]. It hasnot been cleared or approved by the U.S. Food and DrugAdministration. This assay has been validated pursuantto the CLIA regulations and is used for clinicalpurposes.THIS TEST WAS PERFORMED AT:[employer]/[id number] [place] [address]ENUSCCHNEYDA ARREDONDO MD,PHD Blood Venous blood specimen / Unknown 05/03/2024 3:40 PM EST 05/03/2024 5:52 PM EST us Jailyn Ojeda MD LAB BLOOD ORDERABLES Final Result Performing Organization Address [facility] Co de Phone Number [facility] [address] [place] [phone] * Vitamin B12/Folate, Serum Panel (05/03/2024 3:40 PM EST) Vitamin B12 650 200 - 900 pg/mL [facility] Comment:NORMAL 200-900 PG/ML INDETERMINATE 160-199 PG/ML DEFICIENT < 160 PG/ML Folate 15.2 > or = 4.0 ng/mL [facility] Comment:Reference Values:> o r = [...] BLOOD ORDERABLES Final Result Performing Organization Address [facility] Co de Phone Number [facility] [address] [place] [phone] documented in this encounter Visit Diagnoses Diagnosis Transaminitis- Primary Nonspecific elevation of levels of transaminase or lactic acid dehydrogenase (LDH) Hypercholesterolemia Pure hypercholesterolemia Macrocytosis Other specified diseases of blood and blood-forming organs Macrocytosis without anemia Other specified diseases of blood and blood-forming organs documented in this encounter Care Teams Hospice Manager Relationship Specialty Start Date End Date Jailyn Ojeda MD [address] [place] [phone] PCP - General Internal Medicine 06/26/13 documented as of this encounter
--- OUTSIDE RECORDS SUMMARY | 2024-09-25 17:08 | XMS_ITS | Encounter Summary ---
Author Organization [employer] Address [address] [place] [address] [place] [address] Care Team Providers Care Management Associate Name Role Phone Jailyn Ojeda MD Primary Care Provider [phone] Reason for Visit * Reason Comments Med Refill Encounter Details Date Type Department Care Team ([facility] st Contact Info) Description 06/13/2023 Refill [facility] CH[facility] MED & PEDS [address] [place], [place] [phone] Jailyn Ojeda MD [address] [place] [address] Social History Tobacco Use Types Packs/Day Years [...] on filedocumented in this encounter Care Teams Management Associate Relationship Specialty Start Date End Date Jailyn Ojeda MD [address] [place] [address] PCP - General Internal Medicine 06/26/13 documented as of this encounter
--- OUTSIDE RECORDS SUMMARY | 2024-09-25 17:09 | XMS_ITS | Clinical Summary ---
Author Organization [employer] Address [address] [facility] 7t [place] [address] Care Team Providers Care Volleyball Assistant Coach Name Role Phone Jailyn Ojeda MD Primary Care Provider [phone] Allergies No known active allergies Medications cholecalciferol [...] Encounters Date Type Department Care Team Description 09/20/2024 Orders Only [facility] External Provider, [facility] 08/30/2024 Population Health Risk Score [facility] ([facility] Department [address] [facility] 7 [place] [address] Provider, Population Health Generic 08/20/2024 Orders Only GENERIC EXTERNAL DATA DEPARTMENT Provider, Generic External Data 07/27/2024 Refill [facility] MED & PEDS [address] [place] [address] Jailyn Ojeda MD from Last 3 Months [...] SCREENING Routine 09/23/2024 5 :04 PM EDT LIVER FIBROSIS, FIBROTEST ACTITEST PANEL Routine 08/20/2024 [...] Recently Relevant to Health Maintenance Results * CT Lung Screening Low dose (09/23/2024 5:04 PM EDT) Anatomical Region Laterality Modality Lung Computed Tomogra phy 09/23/2024 5:04 PM EDT Narrative 09/23/2024 5:06 PM EDT ? [facility] ?[address] ?[place] [address] ? CT Scan Report ? Signed ? Patient: MichaelKike ?MR#: [id number] ?? 198 ? : 1955 ?Acct:[id number] ? Age/Sex: 68 / M ?ADM Date: 09/20/24 ? Loc: HO.CT ? Attending Dr: Cat Graff PA-C ? Ordering Physician: Cat Graff PA-C ?? Date of Service: 09/20/24 ?? Procedure(s): CT lung screening ?? Accession Number(s): [id number] ? cc: Jailyn Ojeda MD; Cat Graff PA-C ? Report Number: ?? [id number]: Total DLP = ?? 98.00 mGy-cm ? [...] was provided on smoking cessation. ? Comparison: CR/AR - RIBS LEFT PA CHEST [id number] - 03/01/16 16:01 EDT ? Findings: ?? [...] signed by Greg Albrecht MD in OV> ?09/23/24 1705 ? DD/ 170 ? TD/TT: 09/23/241703 ? Child Welfare Assistant: ? Procedure Note Marian Petersen - 09/23/[address] [address] [address] Scan Report Signed Patient: Loyda Rodriugez#: [id number] 198 : 5Acct:[id number] Age/Sex: 68 / MADM Date: 09/20/24 Loc: HO.CT Attending Dr: Cat Graff PA-C Ordering Physician: Cat Graff PA-C Date of Service: 09/20/24 Procedure(s): CT lung screening Accession Number(s): [id number] cc: Jailyn Ojeda MD; Cat Graff PA-C Report Number: [id number]: Total DLP = 98.00 mGy-cm CLINICAL HISTORY: F17.210 - Nicotine dependence, cigarettes, uncomplicated CT lung cancer screening Technique: Axial CT images of the chest using low-dose technique. Effective radiation dose: DLP 90.1 mGy. Cm, CTDIvol 2.19 mGy Referring provider counseled the patient on shared decision-making for LDCT screening. Additional counseling was provided on smoking cessation. Comparison: CR/AR - RIBS LEFT PA CHEST [id number] - 03/01/16 16:01 EDT Findings: Lung nodules [...] signed by Greg Albrecht MD in OV> 09/23/245 DD/ 03 TD/TT: 09/23/241703 Child Welfare Assistant: [facility] External Provider IMG CT PROCEDURES Final Result * (ABNORMAL) Liver Fibrosis (HCV), FibroTest-ActiTest Panel (08/20/2024 3:08 PM EST) Liver Fibrosis Score 0.34 [facility] Liver Fibrosis Stage F1-F2 [facility] Liver Fibrosis Interpretation SEE NOTE [facility] Comment:minimal fibrosisFibr o Test Score [...] (severe fibrosis) Nec Inflam Act Score 0.15 [facility] Nec Inflam Act Grade A0 [facility] Nec Inflam Act Interpretation SEE NOTE [facility] Comment:no activityActiTest Score (a) Metavir Score a>=0 and a<=0.17 : A0 (no activity)a>0.17 and a<=0.29 : A0-A1 (no activity)a>0.29 and a<=0.36 : A1 (minimal activity)a>0.36 and a<=0.52 : A1-A2 (minimal activity)a>0.52 and a<=0.60 : A2 (significant activity)a>0.60 and a<=0.62 : A2-A3 (significant activity)a>0.62 and a<=1.00 : A3 (severe activity) VWG-Eluxj-9-Macroglo bulin 197 106 - 279 mg/dL [facility] FIB-Haptoglobin 119 43 - 212 mg/dL [facility] FIB-Apolipoprotein A1 171 94 - 176 mg/dL [facility] FIB-Total Bilirubin 0.3 0.2 - 1.2 mg/dL [facility] FIB-GGT 144(A) 3 - 70 U/L [facility] FIB-ALT 29 9 - 46 U/L [facility] Reference ID [id number] [facility] Footnote SEE NOTE [facility] Comment: The reliability of results [...] and C.The performance characteristics have been determined by[employer]anda [employer] [facility]. Ithas not been cleared or approved by the U.S. Food and DrugAdministration. Performance characteristics refer to theanalytical performance of the test.[employer], the associated logo, [employer] and all associated [employer] singh are theregistered trademarks of [employer]. All third partymarks - (R) and (TM) - are the property of their respectiveowners. (C) 3941-2555 [employer]. Allrights reserved.THIS TEST WAS PERFORMED AT:[employer]/appCREAR [id number] [place] [facility] CT ??[id number] OSUNA MD,PHD,THOMAS 08/20/2024 3:08 PM EST 08/20/2024 3:08 PM EST us Generic External Data Provider LAB BLOOD ORDERAB LES Final Result Performing Organization Address City/State/[facility] Co de Phone Number [facility] [address] [place] [address] [phone] * (ABNORMAL) Hepatic Function Panel (08/20/2024 3:08 PM EST) Bilirubin, Total 0.5 0.0 - 1.0 mg/dL [facility] Bilirubin, Direct 0.2 0.0 - 0.5 mg/dL [facility] Aspartate Amino Transferase 47(H) 5 - 37 U/L [facility] Alanine Aminotransferase 37 0 - 40 U/L [facility] Total Protein 7.8 6.5 - 8.0 g/dL [facility] Albumin Level 4.3 3.5 - 5.0 g/dL [facility] Alkaline Phosphatase 78 39 - 117 U/L [facility] 08/20/2024 3:08 PM EST 08/20/2024 3:08 PM EST us Generic External Data Provider LAB BLOOD ORDERAB LES Final Result Performing Organization Address [facility] Co de Phone Number [facility] [address] [place] [phone] * (ABNORMAL) Cologuard?? colon cancer screening (04/30/2024 12:10 PM EST) Pathologist [facility] Cologuard Result Positive( A) Negative 05/08/2024 2:17 AM EST [facility] [facility] (CLIA #:[id number]) Comment: POSITIVE TEST RESULT. A positive Cologuard [...] screened with both Cologuard and colonoscopy. (Inocencia Lomeli et al, N Engl J Med 2014;370(14):3140-0278.) Cologuard may produce a false negative or false positive result (no colorectal cancer or precancerous polyp present at colonoscopy follow up). A negative Cologuard test result does not guarantee the absence of CRC or advanced adenoma (pre-cancer). The current Cologuard screening interval is every 3 years. ([employer] and U.S. Multi-Society Task Force). Cologuard performance data in a 10,000 patient pivotal study using colonoscopy as the reference method can be accessed at the following location: www.[employer]/results. Additional description of the Cologuard test process, warnings and precautions can be found at www.[employer] IIogCHF Technologiesrd.com. Stool specimen (specimen) 04/30/2024 12:10 PM EST 05/01/2024 1:15 PM EST us Jailyn Ojeda MD LAB MOLECULAR DIAGNOSTICS O RDERABLES Final Result [facility] (CLIA #:[id number]) [place] [address] [place] [address], * (ABNORMAL) Lipid Panel, Standard (04/15/2024 3:27 PM EDT) Triglycerides 78 <150 mg/dL [facility] Comment:Desirable Triglyceri de: less than 150 mg/dLBorderline High Triglyceride 150-199 mg/dLHigh Triglyceride: 200-499 mg/dLVery High Triglyceride: greater than or equal to 5OO mg/dL Cholesterol 205(H) <200 mg/dL [facility] Comment:Desirable Cholestero l: less than 200 mg/dLBorderline High Cholesterol: 200-239 mg/dLHigh Cholesterol: greater than 239 mg/dL LDL Cholesterol Calculated 127(H) <100 mg/dL [facility] Comment:Desirable LDL: less than 100 mg/dLNear Optimal/Above Optimal LDL: 110- 129 mg/dLBorderline High LDL: 130-159 mg/dLHigh LDL: 160-189 mg/dLVery High LDL: greater than or equal to 190 mg/dL HDL Cholesterol 63 >40 mg/dL [facility] Comment:Desirable HDL: great er than 40 mg/dL Note: This HDL assay may give artificially low results in patients with liver disease. Blood Venous blood specimen / Unknown 04/15/2024 3:27 PM EDT 04/15/2024 5:54 PM EDT us Jailyn Ojeda MD LAB BLOOD ORDERABLES Final Result [facility] [address] [place] [phone] * HEPATITIS C AB W/REFL TO [...] a test for HCV RNA (test code 27236) is suggested. ?? For additional information please refer to http://education.[employer]/faq/TDF41m3 (This link is being provided for informational/ educational purposes only.) ?? 07/06/2021 12:0 6 PM EST us Trina Luevano MD HISTORICAL/NON ORDERABLE LABS Final Result [facility] [address] from Last 3 Months or Most Recently Relevant to Health Maintenance Insurance MEDICARE [facility] [address] [facility] [place] Care Teams Volleyball Assistant Coach Relationship Specialty Start Date End Date Jailyn Ojeda MD [address] [place] [phone] PCP - General Internal Medicine 06/26/13
== END 2024-09-25 14:58 | disposition home or self-care (01) ==
LOC: HO.US 14:57
PROVIDERS: PCP Internal Medicine; Visit Provider Nurse Practitioner Family
DX: K76.0 Fatty (change of) liver, not elsewhere classified (principal)
CPT/HCPCS: 76705; 76981

== ENCOUNTER → 2024-09-25 14:59 | Outpatient (BNV) | payer MEDICARE, MEDICAID, SELFPAY | PROVIDERS: PCP Internal Medicine; Visit Provider Radiology Diagnostic Radiology | DX: R16.0 Hepatomegaly, not elsewhere classified (principal); K76.0 Fatty (change of) liver, not elsewhere classified; Q44.6 Cystic disease of liver | CPT/HCPCS: 76705; 76981 ==

== ENCOUNTER 2024-10-15 14:32 | Outpatient (AMB) | payer MEDICARE, MEDICAID, SELFPAY ==
--- NOTE | 2024-10-15 14:28 | MHC.OFFVIS ---
Vital Signs 10/15/24 14:36 Height 5 ft 7 in Weight 160 lb BMI 25.1 BP 156/74 H Blood Pressure Location Rt brachial Position Sitting Pulse 80 Pulse Source Pulse Oximeter Pulse Oximetry (%) 94 Oxygen Delivery Method Room Air Intake Visit Reasons: COPD/ lorna dependance Corner Former Required: No Stem Threshing Machine Operator: Stem Threshing Machine Operator offered & declined Accompanied by: Self / Same As Patient Allergies No Known Allergies Allergy (Unverified 10/15/24 14:40) Medication List - Last Reconciled 10/15/24 by Awa Hanson LPN atorvastatin mg PO DAILY bisacodyl (Dulcolax (bisacodyl)) 20 mg (4 x 5 mg) PO ONCE 1 day blood pressure monitor As directed doxazosin mg PO DAILY polyethylene glycol 3350 (Miralax) 238 grams PO ONCE HPI HPI COPD/ lorna dependance: Details: Kike is a pleasant 68 year old male, current smoker, with 45pyh, with underlying COPD, and HLD. He was referred by GI for pulmonary evaluation and has upcoming colonoscopy scheduled. He is not currently managed with any respiratory medications. He reports dyspnea on exertion and occasional wheezing, denies cough or chest tightness. He denies prior h/o asthma or prior PFT. He denies any hospitalizations related to respiratory distress or need for supplemental oxygen. He denies h/o recurrent respiratory and is up to date with vaccinations. He denies any seasonal allergies. He denies any occupational exposures. He denies any pertinent family history. He had his first LDCT through the lung screening program which revealed mild centrilobular emphysema, biapical pleural-parenchymal scarring and 2mm pulmonary nodule DEREK. [facility] Medical History (Updated 10/16/24 @ 20:26 by Sayda Burroughs NP) Transaminitis Liver cyst Hepatic steatosis Hyperlipidemia Nicotine dependence, cigarettes, uncomplicated Surgical History History of colonoscopy Social History (Updated 10/15/24 @ 14:42 by Awa Hanson LPN) Patient Tobacco Use Status: Current everyday Tobacco user Tobacco use type: Cigarette Cigarettes Per Day: 22 Years Smoked: (onset 19yo, 1ppd x 49yrs, 40pyh) Review of Systems Const Denies chills, Denies excessive sweating, Denies fever(s), Denies headache(s) and Denies night sweats Eyes Denies dry eyes, Denies irritation and Denies itchy eyes ENT Reports Normal hearing present, Denies headache(s), Denies nasal congestion, Denies nasal discharge, Denies post nasal drip and Denies sore throat Card Denies chest pain, Denies chest pain at rest, Denies chest pain with activity, Denies claudication, Denies leg edema, Denies orthopnea and Denies paroxysmal nocturnal dyspnea Resp Denies chest congestion, Denies cough, Denies excessive phlegm production, Denies pain on inspiration, Denies pain with cough and Denies stridor Musc Denies myalgias Neuro Reports Normal hearing present and Denies headache(s) Endo Denies excessive sweating Alex/Lymph Denies lymphadenopathy Aller/Immun Denies itchy eyes and Denies seasonal rhinorrhea Physical Exam Vital Signs: Last Vital Signs Pulse 80 10/15/24 14:36 BP 156/74 H 10/15/24 14:36 Pulse Ox 94 10/15/24 14:36 Oxygen Delivery Method Room Air 10/15/24 14:36 BMI result Body Mass Index 25.1 Const General: cooperative, healthy appearing, comfortable, no acute distress, well developed and alert Orientation/consciousness: patient oriented x3 Limitations: no limitations HEENT Head: Yes normal to inspection, Yes normocephalic and Yes atraumatic Ears: hearing grossly normal bilaterally and external ears normal Eyes General: appearance normal, both eyes and all related structures Eyelids: Yes eyelids normal Sclerae: sclerae normal EOM: EOMs intact bilaterally Neck Neck: Yes normal visual inspection and Yes no lymphadenopathy Lymphatic: no lymphadenopathy noted Chest Chest palpation & inspection: normal inspection of the chest Resp Effort & Inspection: normal respiratory effort, able to speak in complete sentences, no audible wheezes, no cough, no stridor, not tachypneic, no tripod positioning and no use of accessory muscles Auscultation: clear to auscultation bilaterally Cardio Jugular venous distension: no JVD Rate: regular rate Rhythm: regular rhythm Skin Other: warm, dry General skin exam: no rashes or lesions noted Neuro General: patient oriented x3 Cranial nerves: Yes Normal hearing present Cognition (Neuro): normal cognition Gait exam (Neuro): Normal gait present Extrem General: Yes normal to inspection, Yes capillary refill normal, Yes no clubbing, cyanosis or edema and Yes no pedal edema Psych Appearance: grossly normal and well kempt Speech and movement: Normal speech and movement present and Clear speech present Affect: normal affect Attitude: cooperative Thought process: Normal thought process present Thought content: Normal thought content present Insight: Good insight present (Psych) Judgement: Good judgement present (Psych) Results Reviewed Results Reviewed: [address] [address] [address] Scan Report Signed Patient: Kike Rodriguez MR#: [id number] : 1955 Acct:[id number] Age/Sex: 68 / M ADM Date: 09/20/24 Loc: HO.CT Attending Dr: Cat Graff PA-C Ordering Physician: Cat Graff PA-C Date of Service: 09/20/24 Procedure(s): CT lung screening Accession Number(s): [id number] cc: Jailyn Ojeda MD; Cat Graff PA-C~ Report Number: [id number]: Total DLP = 98.00 mGy-cm CLINICAL HISTORY: F17.210 - Nicotine dependence, cigarettes, uncomplicated CT lung cancer screening Technique: Axial CT images of the chest using low-dose technique. Effective radiation dose: DLP 90.1 mGy. Cm, CTDIvol 2.19 mGy Referring provider counseled the patient on shared decision-making for LDCT screening. Additional counseling was provided on smoking cessation. Comparison: CR/WY - RIBS LEFT PA CHEST 11958 - 03/01/16 16:01 EDT Findings: Lung nodules RUL: None RML: None RLL: None DEREK: 2 mm nodule laterally image 72. Lingula: None LLL: None COPD: Centrilobular emphysema is mild. Pleural spaces: Biapical pleural-parenchymal scarring. Coronary artery calcifications: Mild. Limited upper abdomen: Hepatic steatosis. Volume redistribution of the liver probable cirrhosis. No splenomegaly. Other: None. Impression: LungRADS 2 - Benign Appearance: Continue annual screening with low dose Chest CT in 12 months. ##L2# ACR LungRADS Categories Category 1: Normal; continue annual screening Category 2: Benign appearance or behavior, continue annual screening Category 3: Probably benign, [address] recommended Category 4A: Suspicious, [address] recommended; may consider PET/CT Category 4B: Suspicious, Additional diagnostics and/or tissue sampling recommended Category 4X: Suspicious, Additional diagnostics and/or tissue sampling Category 0: Recalls (incomplete screen due to Incomplete coverage, Noise, Respiratory motion, Expiration, Obscured by acute abnormality) This document has been electronically signed by: Greg Albrecht MD on 09/23/2024 17:04:24 Dictated By: Greg Albrecht MD Signed By: <Electronically signed by Greg Albrecht MD in OV> 09/23/241704 DD/ 03 TD/TT: 09/23/241703 Lens Matcher: Assessment & Plan Assessment & Plan (1) COPD (chronic obstructive pulmonary disease): Code(s): J44.9 - Chronic obstructive pulmonary disease, unspecified Category: Medical (2) Nicotine dependence, cigarettes, uncomplicated: Code(s): F17.210 - Nicotine dependence, cigarettes, uncomplicated Category: Medical (3) Pulmonary nodule: Code(s): R91.1 - Solitary pulmonary nodule Category: Medical Plan Kike presents for pulmonary evaluation for ongoing dyspnea and wheezing, likely related to COPD given smoking history. Will send for PFT to assess severity of obstructive defect and further risk stratify. Will empirically start patient on Breo to optimize patient from a pulmonary standpoint. Discussed importance of good oral hygiene to prevent thrush. Reviewed LDCT 07/2024 which revealed 2mm pulmonary nodule of DEREK, mild centrilobular emphysema and biapical pleural-parenchymal scarring. All questions were answered and patient is in agreement of plan. Will follow up in 6-8 weeks or sooner if needed. Orders: Orders PFT pulmonary function test Today J44.9 - Chronic obstructive pulmonary disease, unspecified Medications: New fluticasone furoate-vilanterol 100-25 mcg/dose (Breo Ellipta) 1 inh inhalation DAILY 60 ea 3RF Coding Level of Care Code New Pt Level 4 (54977) Diagnoses COPD (chronic obstructive pulmonary disease) J44.9 Nicotine dependence, cigarettes, uncomplicated F17.210 Pulmonary nodule R91.1
[2024-10-15 14:36] VITALS: BP 156/74; PULSE 80; O2SAT 94; BMI 25.1
--- OUTSIDE RECORDS SUMMARY | 2024-10-15 16:51 | XMS_ITS | Encounter Summary ---
Author Organization [employer] Address [address] [place] [address] [place] [address] Care Team Providers Care Hospital Account Manager Name Role Phone Jailyn Ojeda MD Primary Care Provider [phone] Reason for Visit * Reason Comments Med Refill Encounter Details Date Type Department Care Team ([facility] st Contact Info) Description 06/13/2023 Refill [facility] CHC MED & PEDS [address] [place], [place] [phone] Jailyn Ojeda MD [address] [place] [address] Social History Tobacco Use Types Packs/Day Years [...] on filedocumented in this encounter Care Teams Hospital Account Manager Relationship Specialty Start Date End Date Jailyn Ojeda MD [address] [place] [address] PCP - General Internal Medicine 06/26/13 documented as of this encounter
--- OUTSIDE RECORDS SUMMARY | 2024-10-15 16:51 | XMS_ITS | Encounter Summary ---
Author Organization [employer] Address [address] [facility] 7 [place] [address] Care Team Providers Care Religious Education Director Name Role Phone Jailyn Ojeda MD Primary Care Provider [phone] Encounter Details Date Type Department Care Team ([facility] st Contact Info) Description 04/15/2024 Orders Only [facility] CHC MED & PEDS [address] [place] [address] Jailyn Ojeda MD [address] [place] [address] Transaminitis (Primary Dx); Hypercholesterolemia; Macrocytosis; Macrocytosis without [...] EST Narrative 06/11/2024 6:08 AM EST ? [facility] ?[address] ?[place] [address] ? Ultrasound Report ? Signed ? Patient: Kike Rodriguez ?MR#: [id number] ?? [id number] ? : 1955 ?Acct:[id number] ? Age/Sex: 68 / M ?ADM Date: 11/19/24 ? Loc: HO.US ? Attending Dr: Jailyn Ojeda MD ? Ordering Physician: Jailyn Ojeda MD ?? Date of Service: 05/07/24 ?? Procedure(s): US aorta ?? Accession Number(s): [id number] ? cc: Jailyn Ojeda MD ? EXAMINATION: [...] Stephen Radiol 2013;10 ?? (10):[id number]. (Available on [employer]) ? Electronically signed by: ??Oren Fernandez MD ??06/11/2024 06:05 AM EST ?? RP ? Dictated By: ?Oren Fernandez MD ? Signed By: ?<Electronically signed by Oren Fernandez MD in OV> ?06/11/24604 ? DD/ 1146 ? TD/TT: 05/07/24 1200 ? Jazz Musician: HS ? Procedure Note Nicola, Image - 06/11/2024 [place] [address] Ultrasound Report Signed Patient: Loyda Rodriguez#: [id number] : 5Acct:[id number] Age/Sex: 68 / MADM Date: 05/07/24 Loc: HO.US Attending Dr: Jailyn Ojeda MD Ordering Physician: Jailyn Ojeda MD Date of Service: 05/07/24 Procedure(s): US aorta Accession Number(s): [id number] cc: Jailyn Ojeda MD EXAMINATION: US RETROPERITONEAL [...] Am Stephen Radiol 2013;10 (10):789-794. (Available on [employer]) Electronically signed by: Oren Fernandez MD 06/11/2024 06:05 AM EST Dictated By: Oren Fernandez MD Signed By: <Electronically signed by Oren Fernandez MD in OV> 06/11/24 0605 DD/ 1146 TD/TT: 05/07/24 1200 Jazz Musician: HS Jailyn Ojeda MD [facility] US PROCEDURES Edited Re sult - Final * Vitamin B1 (05/03/2024 3:40 PM EST) Vitamin B1 22 8 - 30 nmol/L [facility] Comment:Vitamin supplementat ion within 24 hours prior toblood draw may affect the accuracy of the results.This test was developed and its analytical performancecharacteristics have been determined by [employer] [place], [place]. It hasnot been cleared or approved by the U.S. Food and DrugAdministration. This assay has been validated pursuantto the CLIA regulations and is used for clinicalpurposes.THIS TEST WAS PERFORMED AT:[id number] [place] [address]DLCEVUNNEYDA ARREDONDO MD,PHD Blood Venous blood specimen / Unknown 05/03/2024 3:40 PM EST 05/03/2024 5:52 PM EST us Jailyn Ojeda MD LAB BLOOD ORDERABLES Final Result Performing Organization Address [facility] Co de Phone Number [facility] [address] [place] [phone] * Vitamin B12/Folate, Serum Panel (05/03/2024 3:40 PM EST) Vitamin B12 650 200 - 900 pg/mL [facility] Comment:NORMAL 200-900 PG/ML INDETERMINATE 160-199 PG/ML DEFICIENT < 160 PG/ML Folate 15.2 > or = 4.0 ng/mL [facility] Comment:Reference Values:> o r = 4.0 [...] BLOOD ORDERABLES Final Result Performing Organization Address [facility] Co de Phone Number [facility] [address] [place] [phone] documented in this encounter Visit Diagnoses Diagnosis Transaminitis- Primary Nonspecific elevation of levels of transaminase or lactic acid dehydrogenase (LDH) Hypercholesterolemia Pure hypercholesterolemia Macrocytosis Other specified diseases of blood and blood-forming organs Macrocytosis without anemia Other specified diseases of blood and blood-forming organs documented in this encounter Care Teams Religious Education Director Relationship Specialty Start Date End Date Jailyn Ojeda MD [address] [place] [phone] PCP - General Internal Medicine 06/26/13 documented as of this encounter
--- OUTSIDE RECORDS SUMMARY | 2024-10-15 16:51 | XMS_ITS | Encounter Summary ---
Author Organization [employer] Address [address] [place] [address] Care Team Providers Care Postie Name Role Phone Jailyn Ojeda MD Primary Care Provider [phone] Reason for Referral * Consultation (Routine) - Closed Specialty Diagnoses / Procedures Referred By Controbi t Referred To Contact Gastroenterology Diagnoses Positive colorectal cancer screening using Cologuard test Jailyn Ojeda MD [address] [place] [phone] Phone: tel: fax: Soraida Cortes MD [address] [place] [phone] Phone: tel: fax: Referral ID Status Reason Start Date Expiration Date V isits Requested Visits Authorized [id number] Closed Specialty Services Required 05/08/2024 05/08/2025 1 1 Encounter Details Date Type Department Care Team (Late st Contact Info) Description 05/08/2024 Orders Only [facility] CHC MED & PEDS [address] [place], [place] [phone] Jailyn Ojeda MD [address] [place] [phone] Transaminitis (Primary Dx); Positive colorectal cancer screening [...] test documented in this encounter Care Teams Postie Relationship Specialty Start Date End Date Jailyn Ojeda MD [address] [place] [phone] PCP - General Internal Medicine 06/26/13 documented as of this encounter
--- OUTSIDE RECORDS SUMMARY | 2024-10-15 16:52 | XMS_ITS | Clinical Summary ---
Author Organization [employer] Address [address] [facility] 7[address] [place] [address] Care Team Providers Care Communication Signals Intelligence Name Role Phone Jailyn Ojeda MD Primary Care Provider [phone]- [phone] Allergies No known active allergies Medications cholecalciferol [...] Department Care Team Description 09/20/2024 Orders Only [facility] External Provider, [facility] 08/30/2024 Population Health Risk Score [facility] ([facility] Department [address] [facility] [address] [place] [address] Provider, Population Health Generic 08/20/2024 Orders Only GENERIC EXTERNAL DATA DEPARTMENT Provider, Generic External Data 07/27/2024 Refill [facility] [address] [place] [address] Jailyn Ojeda MD from Last 3 Months [...] Name Priority Date/Time Associated Diagnosis Comments US ABDOMEN ARZATE W ELASTOGRAPHY Routine 09/25/2024 3:12 PM EDT LDCT LUNG SCREENING Routine 09/23/2024 5 :04 [...] Recently Relevant to Health Maintenance Results * US ABDOMEN ARZATE W ELASTOGRAPHY (09/25/2024 3:12 PM EDT) Anatomical Region Laterality Modality Abdomen Ultrasound 09/25/2024 3:12 PM EDT Narrative 09/26/2024 7:12 AM EDT ? [facility] ?[address] ?[place] [address] ? Ultrasound Report ? Signed ? Patient: Kike Rodriguez ?MR#: [id number] ?? 198 ? : 1955 ?Acct:[id number] ? Age/Sex: 68 / M ?ADM Date: 09/25/24 ? Loc: HO.US ? Attending Dr: Lurdes WHITE ? Ordering Physician: Lurdes Su ?? Date of Service: 09/25/24 ?? Procedure(s): US abdomen arzate w elastography ?? Accession Number(s): [id number] ? cc: Jailyn Ojeda MD; Lurdes Su ? EXAMINATION: ??US ABDOMEN LIMITED WITH LIVER ELASTOGRAPHY ? HISTORY: K76.0 - Fatty (change of) liver, not elsewhere classified ? TECHNIQUE: Real-time grayscale ultrasound imaging of the right upper ?? quadrant was performed and images were reviewed. ? COMPARISON: There are no prior studies for comparison. ? FINDINGS: ?? Liver: ?? The right lobe of the liver measures 15.0 cm in size. The left ?? lobe of the liver measures 10.8 cm in size. The liver demonstrates ?? increased echotexture, consistent with steatosis. ??Multiple simple ?? cysts are noted including an 8 x 5 x 7 mm cyst in the right lobe and 8 ?? x 6 x 9 mm and 4 x 4 by 5 mm in the left lobe. No intrahepatic biliary ?? ductal dilatation is identified. ??There is normal hepatopedal flow in ?? the portal vein. ? Ultrasound elastography of the liver was performed with 10 separate ?? measurements of the liver parenchyma with the patient in the supine ?? position. ??Measurements were obtained approximately 2 cm below ?? Elena's capsule and perpendicular to the capsule. ??Images are of ?? satisfactory quality. ? The median shear wave velocity is 1.44 m/s. ?? The interquartile range/median (IQR/median) is 0.22. ? Gallbladder and biliary tree: The gallbladder is unremarkable, without ?? evidence of calculi, wall thickening, or pericholecystic fluid. ??There ?? is no sonographic Malloy sign. ??The common bile duct is normal in ?? caliber measuring 3 mm. ? Right Kidney: ??The right kidney measures 9.9 cm in length. ??The right ?? kidney is unremarkable, without evidence of masses, hydronephrosis, or ?? calculi. ? Pancreas: The pancreatic head, neck, and body are unremarkable. The ?? pancreatic tail is obscured by bowel gas. ? Abdominal aorta and inferior vena cava: The visualized portions of the ?? abdominal aorta and inferior vena cava are normal in caliber. ? There is no free fluid in the right upper quadrant. ? US/US abdomen arzate w elastography ?? IMPRESSION: ? Hepatomegaly and hepatic steatosis. Hepatic cysts as described. ? The median shear wave velocity in the liver is 1.44 m/s, corresponding ?? to a median liver stiffness of 6.39 kPa. ??The IQR/median value is 0.22. ?? This is indicative of a poor quality data set, and the estimated liver ?? stiffness may be unreliable. ?? Findings are indicative of a low elastography value which rules out ?? advanced chronic liver disease in asymptomatic patients. ? REFERENCE: ?? Society of Radiologists in Ultrasound Liver Stiffness Thresholds (2019): ? LIVER STIFFNESS THRESHOLDS: ?? *Shear wave velocity less than 1.3 m/s (Liver Stiffness equal or less ?? than 5 kPa): ??High probability of being normal. ?? *Shear wave velocity less than 1.7 m/s (Liver Stiffness less than 9 ?? kPa): ??In the absence of other known clinical signs, rules out ?? compensated advanced chronic liver disease. ?? *Shear wave velocity between 1.7-2.1 m/s (Liver Stiffness 9-13 kPa): ? Suggestive of compensated advanced chronic liver disease but need ?? further test for confirmation. ?? *Shear wave velocity between 2.1-2.4 m/s (Liver Stiffness 13-17 kPa): ? Rules in compensated advanced chronic liver disease. ?? *Shear wave velocity ??greater than 2.4 m/s (Liver Stiffness over 17 ?? kPa): ??Suggestive of clinically significant portal hypertension. ? QUALITY OF DATA SET: ?? *IQR/Median value equal or less than 0.15 implies a quality data set. ?? *IQR/Median value over 0.15 implies a poor quality data set. ? SIGNIFICANT CHANGE FROM PRIOR EXAM: ?? Significant change if liver stiffness measurement is 10% or greater ?? from prior exam. ? OTHER CONSIDERATIONS: ?? The stage of liver fibrosis may be overestimated in the setting of ?? acute hepatitis, liver inflammation, elevated liver function tests, ?? hepatic vascular congestion, obstructive cholestasis, non-fasting ?? state, and infiltrative diseases such as amyloidosis and lymphoma. ??In ?? some patients with NAFLD, the liver stiffness thresholds for ?? compensated advanced chronic liver disease may be lower. ??In causes ?? other than viral hepatitis and NAFLD, liver stiffness thresholds are ?? not well established. ? Electronically signed by: ??Anton Escobedo MD ??09/26/2024 07:09 AM EDT ?? RP ? Dictated By: ?Anton Escobedo MD ? Signed By: ?<Electronically signed by Anton Escobedo MD in OV> ?09/26/24 0709 ? DD/ 1512 ? TD/TT: 09/25/24 1535 ? Design Center Consultant: ? Procedure Note Marian Petersen - 09/26/[address] [address] Ultrasound Report Signed Patient: Loyda Rodriguez#: [id number] 198 : 5Acct:[id number] Age/Sex: 68 / MADM Date: 09/25/24 Loc: HO.US Attending Dr: Lurdes [facility] Ordering Physician: Lurdes Su Date of Service: 09/25/24 Procedure(s): US abdomen arzate w elastography Accession Number(s): [id number] cc: Jailyn Ojeda MD; Lurdes Su EXAMINATION: US ABDOMEN LIMITED WITH LIVER ELASTOGRAPHY HISTORY: K76.0 - Fatty (change of) liver, not elsewhere classified TECHNIQUE: Real-time grayscale ultrasound imaging of the right upper quadrant was performed and images were reviewed. COMPARISON: There are no prior studies for comparison. FINDINGS: Liver: The right lobe of the liver measures 15.0 cm in size. The left lobe of the liver measures 10.8 cm in size. The liver demonstrates increased echotexture, consistent with steatosis. Multiple simple cysts are noted including an 8 x 5 x 7 mm cyst in the right lobe and 8 x 6 x 9 mm and 4 x 4 by 5 mm in the left lobe. No intrahepatic biliary ductal dilatation is identified. There is normal hepatopedal flow in the portal vein. Ultrasound elastography of the liver was performed with 10 separate measurements of the liver parenchyma with the patient in the supine position. Measurements were obtained approximately 2 cm below Elena's capsule and perpendicular to the capsule. Images are of satisfactory quality. The median shear wave velocity is 1.44 m/s. The interquartile range/median (IQR/median) is 0.22. Gallbladder and biliary tree: The gallbladder is unremarkable, without evidence of calculi, wall thickening, or pericholecystic fluid. There is no sonographic Malloy sign. The common bile duct is normal in caliber measuring 3 mm. Right Kidney: The right kidney measures 9.9 cm in length. The right kidney is unremarkable, without evidence of masses, hydronephrosis, or calculi. Pancreas: The pancreatic head, neck, and body are unremarkable. The pancreatic tail is obscured by bowel gas. Abdominal aorta and inferior vena cava: The visualized portions of the abdominal aorta and inferior vena cava are normal in caliber. There is no free fluid in the right upper quadrant. US/US abdomen arzate w elastography IMPRESSION: Hepatomegaly and hepatic steatosis. Hepatic cysts as described. The median shear wave velocity in the liver is 1.44 m/s, corresponding to a median liver stiffness of 6.39 kPa. The IQR/median value is 0.22. This is indicative of a poor quality data set, and the estimated liver stiffness may be unreliable. Findings are indicative of a low elastography value which rules out advanced chronic liver disease in asymptomatic patients. REFERENCE: Society of Radiologists in Ultrasound Liver Stiffness Thresholds (2019): LIVER STIFFNESS THRESHOLDS: *Shear wave velocity less than 1.3 m/s (Liver Stiffness equal or less than 5 kPa): High probability of being normal. *Shear wave velocity less than 1.7 m/s (Liver Stiffness less than 9 kPa): In the absence of other known clinical signs, rules out compensated advanced chronic liver disease. *Shear wave velocity between 1.7-2.1 m/s (Liver Stiffness 9-13 kPa): Suggestive of compensated advanced chronic liver disease but need further test for confirmation. *Shear wave velocity between 2.1-2.4 m/s (Liver Stiffness 13-17 kPa): Rules in compensated advanced chronic liver disease. *Shear wave velocity greater than 2.4 m/s (Liver Stiffness over 17 kPa): Suggestive of clinically significant portal hypertension. QUALITY OF DATA SET: *IQR/Median value equal or less than 0.15 implies a quality data set. *IQR/Median value over 0.15 implies a poor quality data set. SIGNIFICANT CHANGE FROM PRIOR EXAM: Significant change if liver stiffness measurement is 10% or greater from prior exam. OTHER CONSIDERATIONS: The stage of liver fibrosis may be overestimated in the setting of acute hepatitis, liver inflammation, elevated liver function tests, hepatic vascular congestion, obstructive cholestasis, non-fasting state, and infiltrative diseases such as amyloidosis and lymphoma. In some patients with NAFLD, the liver stiffness thresholds for compensated advanced chronic liver disease may be lower. In causes other than viral hepatitis and NAFLD, liver stiffness thresholds are not well established. Electronically signed by: Anton Escobedo MD 09/26/2024 07:09 AM EDT Dictated By: Anton Escobedo MD Signed By: <Electronically signed by Anton Escobedo MD in OV> 09/26/24 0709 DD/ 1512 TD/TT: 09/25/24 1535 Design Center Consultant: [facility] External Provider IMG US PROCEDURES Final Result * CT Lung Screening Low dose (09/23/2024 5:04 PM EDT) Anatomical Region Laterality Modality Lung Computed Tomogra phy 09/23/2024 5:04 PM EDT Narrative 09/23/2024 5:06 PM EDT ? [facility] ?[address] ?[place], [place] [address] ? CT Scan Report ? Signed ? Patient: Kike Rodriguez ?MR#: [id number] ?? 198 ? : 1955 ?Acct:[id number] ? Age/Sex: 68 / M ?ADM Date: 09/20/24 ? Loc: HO.CT ? Attending Dr: Cat Graff PA-C ? Ordering Physician: Cat Graff PA-C ?? Date of Service: 09/20/24 ?? Procedure(s): CT lung screening ?? Accession Number(s): [id number] ? cc: Jailyn Ojeda MD; Cat Graff PA-C ? Report Number: ?? [id number]: Total DLP = ?? 98.00 mGy-cm ? [...] was provided on smoking cessation. ? Comparison: CR/HI - RIBS LEFT PA CHEST [id number] - 03/01/16 16:01 EDT ? Findings: ?? [...] MD in OV> ?09/23/24 1705 ? DD/ 1704 ? TD/TT: 09/23/241703 ? Design Center Consultant: ? Procedure Note Nicola, Image - 09/23/[address] [place] [address] [address] Scan Report Signed Patient: Loyda Rodriguez#: [id number] 198 : 5Acct:[id number] Age/Sex: 68 / MADM Date: 09/20/24 Loc: HO.CT Attending Dr: Cat Graff PA-C Ordering Physician: Cat Graff PA-C Date of Service: 09/20/24 Procedure(s): CT lung screening Accession Number(s): [id number] cc: Jailyn Ojeda MD; Cat Graff PA-C Report Number: [id number]: Total DLP = 98.00 mGy-cm CLINICAL HISTORY: F17.210 - Nicotine dependence, cigarettes, uncomplicated CT lung cancer screening Technique: Axial CT images of the chest using low-dose technique. Effective radiation dose: DLP 90.1 mGy. Cm, CTDIvol 2.19 mGy Referring provider counseled the patient on shared decision-making for LDCT screening. Additional counseling was provided on smoking cessation. Comparison: CR/HI - RIBS LEFT PA CHEST [id number] - 03/01/16 16:01 EDT Findings: Lung nodules [...] in OV> 09/23/241704 DD/ 03 TD/TT: 09/23/241703 Design Center Consultant: [facility] External Provider IMG CT PROCEDURES Final [...] activity)a>0.62 and a<=1.00 : A3 (severe activity) OCV-Rpvqc-2-Macroglo bulin 197 106 - 279 mg/dL [facility] [...] [facility] Reference ID [id number] [facility] Footnote SEE [...] and C.The performance characteristics have been determined by[facility]. Ithas not been cleared or approved by the U.S. Food and DrugAdministration. Performance characteristics refer to theanalytical performance of the test.[employer], the associated logo, [employer] and all associated [employer] singh are theregistered trademarks of [employer]. All third partymarks - (R) and (TM) - are the property of their respectiveowners. (C) 8714-4582 [employer]. Allrights reserved.THIS TEST WAS PERFORMED AT:[employer] [id number] [facility] GUILLERMINA [facility], [place] ??[id number] OSUNA MD,PHD,THOMAS 08/20/2024 3:08 PM EST 08/20/2024 3:08 PM EST us Generic External Data Provider LAB BLOOD ORDERAB LES Final Result [facility] [address] [place] [phone] * (ABNORMAL) Hepatic Function Panel (08/20/2024 [...] Result [facility] [address] [place] [phone] * (ABNORMAL) Cologuard?? colon cancer screening (04/30/2024 12:10 PM EST) Pathologist [facility] Cologuard Result Positive( A) Negative 05/08/2024 2:17 AM EST [facility] (CLIA #:[id number]) Comment: POSITIVE TEST RESULT. A positive Cologuard [...] (Inocencia Lerner al, N Engl J Med 2014;370(14):0052-2635.) Cologuard may produce a false negative or [...] can be accessed at the following location: www.[employer]/results. Additional description of the Cologuard test process, warnings and precautions can be found at www.[employer]. Stool specimen (specimen) 04/30/2024 12:10 PM EST 05/01/2024 1:15 PM EST us Jailyn Ojeda MD LAB MOLECULAR DIAGNOSTICS O RDERABLES Final Result [employer] (CLIA #:[id number]) [place] [address] [place] [address], * (ABNORMAL) Lipid Panel, Standard (04/15/2024 3:27 PM EDT) Triglycerides 78 <150 mg/dL [facility] Comment:Desirable Triglyceri de: less than 150 [...] 190 mg/dL HDL Cholesterol 63 >40 mg/dL [facility] Comment:Desirable HDL: great er than 40 mg/dL Note: This HDL assay may give artificially low results in patients with liver disease. Blood Venous blood specimen / Unknown 04/15/2024 3:27 PM EDT 04/15/2024 5:54 PM EDT us Jailyn Ojeda MD LAB BLOOD ORDERABLES Final Result [facility] [address] [place] [phone] * HEPATITIS C AB W/REFL TO HCV RNA, QN, PCR (07/06/2021 12:06 PM EST) HEPATITIS C ANTIBODY NON-REACT FRANCES NON-REACT FRANCES [facility] INDEX 0.05 <1.00 [facility] Comment: ?? HCV antibody was non-reactive. There is no laboratory ?? evidence of HCV infection. ?? In most cases, no further action is required. However, if recent HCV exposure is suspected, a test for HCV RNA (test code 91874) is suggested. ?? For additional information please refer to http://education.[employer]/faq/UGT52o3 (This link is being provided for informational/ educational purposes only.) ?? 07/06/2021 12:0 6 PM EST us Trina Luevano MD HISTORICAL/NON ORDERABLE LABS Final Result [facility] [address] from Last 3 Months or Most Recently Relevant to Health Maintenance Insurance MEDICARE [facility] STANDARD Care Teams Communication Signals Intelligence Relationship Specialty Start Date End Date Jailyn Ojeda MD [address] [place] [phone] PCP - General Internal Medicine 06/26/13
== END 2024-10-15 15:25 | disposition home or self-care (01) ==
LOC: HO.HPSW 14:33
PROVIDERS: PCP Internal Medicine; Referring Provider Nurse Practitioner Family; Visit Provider Nurse Practitioner Family
DX: J44.9 Chronic obstructive pulmonary disease, unspecified (principal); F17.210 Nicotine dependence, cigarettes, uncomplicated; R91.1 Solitary pulmonary nodule
CPT/HCPCS: 99204

== ENCOUNTER → 2024-10-15 14:32 | Outpatient (BNVA) | payer MEDICARE, MEDICAID, SELFPAY | PROVIDERS: PCP Internal Medicine; Referring Provider Nurse Practitioner Family; Visit Provider Nurse Practitioner Family | DX: J43.2 Centrilobular emphysema (principal); E78.5 Hyperlipidemia, unspecified; R91.1 Solitary pulmonary nodule; F17.210 Nicotine dependence, cigarettes, uncomplicated | CPT/HCPCS: 99202 ==

== ENCOUNTER 2025-01-20 15:16 | Outpatient (REF) | payer MEDICARE, MEDICAID, SELFPAY ==
--- OUTSIDE RECORDS SUMMARY | 2025-01-20 15:19 | XMS_ITS | Encounter Summary ---
Author Organization [employer] Address [address] [place] [address] Care Team Providers Care Machine Tester Name Role Phone Jailyn Ojeda MD Primary Care Provider [phone]- [phone] Reason for Referral * Consultation (Routine) - Closed Specialty Diagnoses / Procedures Referred By Contac t Referred To Contact Gastroenterology Diagnoses Positive colorectal cancer screening using Cologuard test Jailyn Ojeda MD [address] [place] [address] Phone: tel: fax: Soraida Cortes MD [address] [place] [address] Phone: tel: fax: Referral ID Status Reason Start Date Expiration Date V isits Requested Visits Authorized [id number] Closed Specialty Services Required 05/08/2024 05/08/2025 1 1 Encounter Details Date Type Department Care Team (Late st Contact Info) Description 05/08/2024 Orders Only [facility] [address] [place], [place] [phone] Jailyn Ojeda MD [address] [place] [address] [phone] Transaminitis (Primary Dx); Positive colorectal cancer screening [...] test documented in this encounter Care Teams Machine Tester Relationship Specialty Start Date End Date Jailyn Ojeda MD [address] [place] [phone] PCP - General Internal Medicine 06/26/13 documented as of this encounter
[2025-01-20 18:19] LABS: Prostate Specific Antigen 0.79 ng/mL (<0.05-4.0)
== END 2025-01-20 15:17 | disposition home or self-care (01) ==
LOC: HO.CHCLDS 15:16
PROVIDERS: PCP Internal Medicine; Visit Provider Urology
DX: N40.1 Benign prostatic hyperplasia with lower urinary tract symptoms (principal); Z12.5 Encounter for screening for malignant neoplasm of prostate
CPT/HCPCS: 36415; 84153

== ENCOUNTER 2025-02-14 14:48 | Outpatient (REF) | payer MEDICARE, MEDICAID, SELFPAY ==
--- OUTSIDE RECORDS SUMMARY | 2025-02-14 14:51 | XMS_ITS | Encounter Summary ---
Author Organization [employer] Address [address] [place] [address] Care Team Providers Care Cone Tender Name Role Phone Jailyn Ojeda MD Primary Care Provider [phone]- [phone] Reason for Referral * Consultation (Routine) - Closed Specialty Diagnoses / Procedures Referred By Contac t Referred To Contact Gastroenterology Diagnoses Positive colorectal cancer screening using Cologuard test Jailyn Ojeda MD [address] [place] [address] Phone: tel: fax: Soraida Cortes MD [address] [place] [phone] Phone: tel: fax: Referral ID Status Reason Start Date Expiration Date V isits Requested Visits Authorized [id number] Closed Specialty Services Required 05/08/2024 05/08/2025 1 1 Encounter Details Date Type Department Care Team (Late st Contact Info) Description 05/08/2024 Orders Only [facility] [address] [place], [place] [phone] Jailyn Ojeda MD [address] [place] [address] [phone] Transaminitis (Primary Dx); Positive colorectal cancer screening [...] test documented in this encounter Care Teams Cone Tender Relationship Specialty Start Date End Date Jailyn Ojeda MD [address] [place] [phone] PCP - General Internal Medicine 06/26/13 documented as of this encounter
--- OUTSIDE RECORDS SUMMARY | 2025-02-14 14:51 | XMS_ITS | Clinical Summary ---
Author Organization [employer] Address [address] [facility] 7t [place] [address] Care Team Providers Care Director Of Perioperative Services Name Role Phone Jailyn Ojeda MD Primary Care Provider +1- [phone] Allergies No known active allergies Medications cholecalciferol [...] Encounters Date Type Department Care Team Description 02/07/2025 Telephone [facility] MEDICINE [address] [place] [address] [phone] Jailyn Ojeda MD Nurse Triage 01/14/2025 Telephone [facility] MEDICINE [address] [place] [address] Jailyn Ojeda MD 01/02/2025 Refill [facility] CHC MED & PEDS [address] [place] [address] Jailyn Ojeda MD Hypercholesterolemia from Last 3 Months Immunizations Immunization Administration Dates Next Due Influenza High-dose Quadriva [...] 81 04/15/2024 2:37 PM EDT Temperature 36.2 C (97.2 F) 04/15/2024 2:37 PM EDT Respiratory Rate 12 04/15/2024 2:37 PM EDT [...] 2024 04/01/2023, 06/03/2022, 04/15/2021, Additional history exists Influenza Vaccine (#1) 2025 , 04/01/2023, 06/03/2022, Additional history exists Alcohol/Substance Use Screening 04/15/2025 04/15/2024 SDOH Screening 04/15/2025 04/15/2024 Tobacco Screening 04/15/2025 04/15/2024 Colorectal Cancer Screening 04/30/2027 FIT DNA/Cologuard 04/30/2027 04/30/2024 Lipid Panel 04/15/2029 04/15/2024 RSV Patients and Patients Aged 60 years or older (1 - 1-dose 75+ series) 2029 Hepatitis C Screening Completed 07/06/2021 Zoster Vaccines Completed 10/12/2021, 08/13/2021 Pneumococcal Vaccine: 50+ Years Completed 04/15/2024 HIB [...] patient's age to complete this topic Meningococcal B Vaccine Aged Out No l onger eligible based on patient's age to complete [...] Name Priority Date/Time Associated Diagnosis Comments LAB COLOGUARD COLON CANCER SCREEN Routine 04/30/2024 12:10 PM [...] Positive( A) Negative 05/08/2024 2:17 AM EST [facility] E[facility] (CLIA #:[id number]) Comment: POSITIVE TEST RESULT. A positive Cologuard result should be followed with a colonoscopy or visual examination of the colon. The normal value (reference range) for this assay is negative. TEST DESCRIPTION: Composite algorithmic analysis of stool DNA-biomarkers with hemoglobin immunoassay. Quantitative values of individual biomarkers are not [...] (Inocencia Lerner al, N Engl J Med 2014;370(14):5030-9380.) Cologuard may produce a false negative or false positive result (no colorectal cancer or precancerous polyp present at colonoscopy follow up). A negative Cologuard test result does not guarantee the absence of CRC or advanced adenoma (pre-cancer). The current Cologuard screening interval is every 3 years. ([place] Cancer Society and U.S. Multi-Society Task Force). Cologuard performance data in a 10,000 patient pivotal study using colonoscopy as the reference method can be accessed at the following location: www.[email or web address] Oyster.multiBIND biotec/results. Additional description of the Cologuard test process, warnings and precautions can be found at [email or web address]. Stool specimen (specimen) 04/30/2024 12:10 PM EST 05/01/2024 1:15 PM EST Jailyn Ojeda MD LAB MOLECULAR DIAGNOSTICS O RDERABLES Final Result [facility] E[facility] (CLIA #:[id number]) [address] [place] [address], * (ABNORMAL) Lipid Panel, Standard (04/15/2024 3:27 PM EDT) Triglycerides 78 <150 mg/dL [facility] Comment:Desirable Triglyceri de: less than 150 mg/dLBorderline High Triglyceride 150-199 mg/dLHigh Triglyceride: 200-499 mg/dLVery High Triglyceride: greater than or equal to 5OO mg/dL Cholesterol 205(H) <200 mg/dL [facility] Comment:Desirable Cholestero l: less than 200 mg/dLBorderline High Cholesterol: 200-239 mg/dLHigh Cholesterol: greater than 239 mg/dL LDL Cholesterol Calculated 127(H) <100 mg/dL [facility] Comment:Desirable LDL: less than 100 mg/dLNear Optimal/Above Optimal LDL: 110- 129 mg/dLBorderline High LDL: 130-159 mg/dLHigh LDL: 160-189 mg/dLVery High LDL: greater than or equal to 190 mg/dL HDL Cholesterol 63 >40 mg/dL [facility] Comment:Desirable HDL: great er than 40 mg/dL Note: This HDL assay may give artificially low results in patients with liver disease. Blood Venous blood specimen / Unknown 04/15/2024 3:27 PM EDT 04/15/2024 5:54 PM EDT us Jailyn Ojeda MD LAB BLOOD ORDERABLES Final Result [facility] [address] [place] [address] [phone] * HEPATITIS C AB W/REFL TO HCV RNA, QN, PCR (07/06/2021 12:06 PM EST) HEPATITIS C ANTIBODY NON-[facility]ACT [facility] INDEX 0.05 <1.00 [facility] Comment: HCV antibody was non-reactive. There is no laboratory evidence of HCV infection. In most cases, no further action is required. However, if recent HCV exposure is suspected, a test for HCV RNA (test code 76141) is suggested. For additional information please refer to http://education.MD-IT/faq/LJL05p5 (This link is being provided for informational/ educational purposes only.) 07/06/2021 12:0 6 PM EST us Trina Luevano MD HISTORICAL/NON ORDERABLE LABS Final Result [facility] [address] from Last 3 Months or Most Recently Relevant to Health Maintenance Insurance [place] [address] [place] [id number] [facility] Care Teams Director Of Perioperative Services Relationship Specialty Start Date End Date Jailyn Ojeda MD [address] [place] [address] [place] [phone] PCP - General Internal Medicine 06/26/13
--- OUTSIDE RECORDS SUMMARY | 2025-02-14 14:51 | XMS_ITS | Encounter Summary ---
Author Organization [employer] Address [address] [facility] 7 [place] [address] Care Team Providers Care Checker Product Design Name Role Phone Jailyn Ojeda MD Primary Care Provider +1 [phone] Reason for Visit * Reason Onset Date Comments Nurse Triage 02/07/2025 Encounter Details Date Type Department Care Team ([facility] st Contact Info) Description 02/07/2025 Telephone [facility] MEDICINE [address] [place] [address] Jailyn Ojeda MD [address] [place], [place] [phone] Nurse Triage Social History Tobacco Use Types Packs/Day Years [...] AM EDT documented as of this encounter Miscellaneous Notes * Telephone Encounter - Jaime Darby - 02/07/2025 3:23 PM EDT Tc from pt reports 2x days ago had chest pain that lasted between 2-3 minutes. Pt describes as a dull interior pain around the heart area. documented in this encounter Plan of Treatment Not on file documented as of this encounter Visit Diagnoses Not on filedocumented in this encounter Care Teams Checker Product Design Relationship Specialty Start Date End Date Jailyn Ojeda MD [address] [place] [phone] PCP - General Internal Medicine 06/26/13 documented as of this encounter
--- OUTSIDE RECORDS SUMMARY | 2025-02-14 14:51 | XMS_ITS | Encounter Summary ---
Author Organization [employer] Address [address] [place] [address] Care Team Providers Care Outdoor Power Equipment Mechanic Name Role Phone Jailyn Ojeda MD Primary Care Provider +1- [phone] Reason for Visit * Reason Comments Med Refill Encounter Details Date Type Department Care Team ([facility] st Contact Info) Description 06/13/2023 Refill [facility] CHC MED & PEDS [address] [place], [place] [phone] Jailyn Ojeda MD [address] [place] [address] Social History Tobacco Use Types Packs/Day Years [...] on filedocumented in this encounter Care Teams Outdoor Power Equipment Mechanic Relationship Specialty Start Date End Date Jailyn Ojeda MD [address] [place] [address] PCP - General Internal Medicine 06/26/13 documented as of this encounter
--- OUTSIDE RECORDS SUMMARY | 2025-02-14 14:51 | XMS_ITS | Encounter Summary ---
Author Organization [employer] Address [address] [facility] 7 [place] [address] Care Team Providers Care Chemical Process Equipment Operator Name Role Phone Jailyn Ojeda MD Primary Care Provider +1 [phone] Reason for Visit * Reason Comments Med Refill Encounter Details Date Type Department Care Team ([facility] Contact Info) Description 01/02/2025 Refill [facility] CHC MED & PEDS [address] [place], [place] [phone] Jailyn Ojeda MD [address] [place] [address] Hypercholesterolemia Social History Tobacco Use Types Packs/Day Years [...] as of this encounter Visit Diagnoses Diagnosis Hypercholesterolemia Pure hypercholesterolemia documented in this encounter Care Teams Chemical Process Equipment Operator Relationship Specialty Start Date End Date Jailyn Ojeda MD [address] [place] [phone] PCP - General Internal Medicine 06/26/13 documented as of this encounter
--- OUTSIDE RECORDS SUMMARY | 2025-02-14 14:51 | XMS_ITS | Encounter Summary ---
Author Organization [employer] Address [address] [facility] 7 [place] [address] Care Team Providers Care Employer Relations Representative Name Role Phone Jailyn Ojeda MD Primary Care Provider +1 [phone] Encounter Details Date Type Department Care Team ([facility] st Contact Info) Description 04/15/2024 Orders Only [facility] CHC MED & PEDS [address] [place] [address] Jailyn Ojeda MD [address] [place] [address] Transaminitis (Primary Dx); Hypercholesterolemia; Macrocytosis; Macrocytosis without [...] AM EDT documented as of this encounter Functional Status * Audit-C Score Answer Date of Assessment Author 10 04/15/2024 2:43 PM Jailyn Jj MD * Question Answer Date of Assessment Author Q1: How often do you have a drink containing alcohol? 4 or more times a week 04/15/2024 2:43 PM Jailyn Jj MD Q2: How many drinks containing alcohol do you have on a typical day when you are drinking? 5 or 6 04/15/2024 2:43 PM Henny Jj MD Q3: How often do you have six or more drinks on one occasion? Daily or almost daily 04/15/2024 2:43 PM Jailyn Jj MD documented as of this encounter Plan of [...] AM EST Narrative 06/11/2024 6:08 AM EST [address] [address] Ultrasound Report Signed Patient: Kike Rodriguez MR#: [id number] : 1955 Acct:[id number] Age/Sex: 68 / M ADM Date: 05/07/24 Loc: HO.US Attending Dr: Jailyn Ojeda MD Ordering Physician: Jailyn Ojeda MD Date of Service: 05/07/24 Procedure(s): US aorta Accession Number(s): [id number] cc: Jailyn Ojeda MD EXAMINATION: US RETROPERITONEAL [...] Am Stephen Radiol 2013;10 (10):789-794. (Available on RadWiki) Electronically signed by: Oren Fernandez MD 06/11/2024 06:05 AM EST Dictated By: Oren Fernandez MD Signed By: <Electronically signed by Oren Fernandez MD in OV> 06/11/24 0605 DD/ 1146 TD/TT: 05/07/24 1200 Travel Service Consultant: HS Procedure Note Donotuseinterpreter, Image - 06/11/2024 [place] [address] Ultrasound Report Signed Patient: Loyda Rodriguez#: [id number] : 5Acct:[id number] Age/Sex: 68 / MADM Date: 05/07/24 Loc: HO.US Attending Dr: Jailyn Ojeda MD Ordering Physician: Jailyn Ojeda MD Date of Service: 05/07/24 Procedure(s): US aorta Accession Number(s): [id number] cc: Jailyn Ojeda MD EXAMINATION: US RETROPERITONEAL [...] Am Stephen Radiol 2013;10 (10):789-794. (Available on CuturiaWiiLyngo) Electronically signed by: Oren Fernandez MD 06/11/2024 06:05 AM EST Dictated By: Oren Fernandez MD Signed By: <Electronically signed by Oren Fernandez MD in OV> 06/11/24 0605 DD/ 1146 TD/TT: 05/07/24 1200 Travel Service Consultant: HS us Jailyn Ojeda MD IM US PROCEDURES Edited Re sult - Final * Vitamin B1 (05/03/2024 3:40 PM EST) Vitamin B1 22 8 - 30 nmol/L [facility] Comment:Vitamin supplementat ion within 24 hours prior toblood draw may affect the accuracy of the results.This test was developed and its analytical performancecharacteristics have been determined by [employer] [place], [place]. It hasnot been cleared or approved by the U.S. Food and DrugAdministration. This assay has been validated pursuantto the CLIA regulations and is used for clinicalpurposes.THIS TEST WAS PERFORMED AT:[facility] [place] [address]ANTBANJNEYDA ARREDONDO MD,PHD Blood Venous blood specimen / Unknown 05/03/2024 3:40 PM EST 05/03/2024 5:52 PM EST us Jailyn Ojeda MD LAB BLOOD ORDERABLES Final Result Performing Organization Address [facility] Co de Phone Number [facility] [address] [place] [phone] * Vitamin B12/Folate, Serum Panel (05/03/2024 3:40 PM EST) Vitamin B12 650 200 - 900 pg/mL [facility] Comment:NORMAL 200-900 PG/ML INDETERMINATE 160-199 PG/ML DEFICIENT < 160 PG/ML Folate 15.2 > or = 4.0 ng/mL [facility] Comment:Reference Values:> o r = [...] BLOOD ORDERABLES Final Result Performing Organization Address [facility] Co de Phone Number [facility] [address] [place] [phone] documented in this encounter Visit Diagnoses Diagnosis Transaminitis- Primary Nonspecific elevation of levels of transaminase or lactic acid dehydrogenase (LDH) Hypercholesterolemia Pure hypercholesterolemia Macrocytosis Other specified diseases of blood and blood-forming organs Macrocytosis without anemia Other specified diseases of blood and blood-forming organs documented in this encounter Care Teams Employer Relations Representative Relationship Specialty Start Date End Date Jailyn Ojeda MD [address] [place] [phone] PCP - General Internal Medicine 06/26/13 documented as of this encounter
--- NOTE | 2025-02-14 14:56 | PFT_ITS ---
Flows: FEV1: 74 % of predicted at 2.16 L FVC: 96 % of predicted at 3.65 L FEV1/FVC: 59 % Bronchodilator response: Absent Volumes: Total lung capacity: 99 % of predicted at 6.41 L Residual volume: 120 % of predicted at 2.75 L Slow vital capacity: 88 % of predicted at 3.65 L Expiratory reserve volume: 141 % of predicted at 1.51 L Diffusion capacity: Mildly decreased Impression: Moderate obstructive ventilatory defect with no bronchodilator response. Increased residual volume suggests air trapping. Decreased diffusion capacity suggests emphysema. MTDD
[2025-02-14 15:36] VITALS: PULSE 78; O2SAT 96
== END 2025-02-14 14:49 | disposition home or self-care (01) ==
LOC: HO.RESP 14:48
PROVIDERS: PCP Internal Medicine; Visit Provider Nurse Practitioner Family
DX: J44.9 Chronic obstructive pulmonary disease, unspecified (principal)
CPT/HCPCS: 94010; 94640; 94727; 94729

== ENCOUNTER → 2025-02-14 14:56 | Outpatient (BNV) | payer MEDICARE, MEDICAID, SELFPAY | PROVIDERS: PCP Internal Medicine; Visit Provider Internal Medicine Pulmonary Disease | DX: J98.4 Other disorders of lung (principal) | CPT/HCPCS: 94060; 94727; 94729 ==

== ENCOUNTER 2025-02-21 15:04 | Outpatient (AMB) | payer MEDICARE, MEDICAID, SELFPAY ==
--- OUTSIDE RECORDS SUMMARY | 2025-02-21 15:07 | XMS_ITS | Encounter Summary ---
Author Organization [employer] Address [address] [place] [address] Care Team Providers Care Fuel Agent Name Role Phone Jailyn Ojeda MD Primary Care Provider +1- [phone] Reason for Referral * Consultation (Routine) - Closed Specialty Diagnoses / Procedures Referred By Contac t Referred To Contact Gastroenterology Diagnoses Positive colorectal cancer screening using Cologuard test Jailyn Ojeda MD [address] [place] [address] Phone: tel: fax: Soraida Cortes MD [address] [place] [phone] Phone: tel: fax: Referral ID Status Reason Start Date Expiration Date V isits Requested Visits Authorized [id number] Closed Specialty Services Required 05/08/2024 05/08/2025 1 1 Encounter Details Date Type Department Care Team (Late st Contact Info) Description 05/08/2024 Orders Only [facility] CHC MED & PEDS [address] [place], [place] [phone] Jailyn Ojeda MD [address] [place] [address] [phone] Transaminitis (Primary Dx); Positive colorectal cancer screening [...] test documented in this encounter Care Teams Fuel Agent Relationship Specialty Start Date End Date Jailyn Ojeda MD [address] [place] [phone] PCP - General Internal Medicine 06/26/13 documented as of this encounter
--- OUTSIDE RECORDS SUMMARY | 2025-02-21 15:07 | XMS_ITS | Clinical Summary ---
Author Organization [employer] Address [address] [facility] 7t [place] [address] Care Team Providers Care Insurance Claims Assistant Name Role Phone Jailyn Ojeda MD Primary Care Provider +1- [phone] Allergies No known active allergies Medications cholecalciferol [...] Type Department Care Team Description 02/07/[address] [facility] MEDICINE [address] [place] [address] [phone] Jailyn Ojeda MD Nurse Triage 01/14/[address] [facility] MEDICINE [address] [place] [address] Jailyn Ojeda MD 01/02/[address] [facility] CHC MED & PEDS [address] [place] [address] Jailyn Ojeda MD Hypercholesterolemia from Last 3 [...] Colonoscopy 1955 Depression Screening 1955 FIT 1955 Sigmoidoscopy 1955 DTaP/Tdap/Td Vaccines (2 - Td or Tdap) 12/19/2022 12/19/2012 COVID-19 Vaccine ( season) 2025 04/01/2023, 06/03/2022, 04/15/2021, Additional history exists Influenza Vaccine (#1) 2025 , 04/01/2023, 06/03/2022, Additional history exists Alcohol/Substance Use Screening 04/15/2025 04/15/2024 SDOH Screening 04/15/2025 04/15/2024 Tobacco Screening 04/15/2025 04/15/2024 FOBT 04/30/2025 04/30/2024 Colorectal Cancer Screening 04/30/2027 FIT DNA/Cologuard 04/30/2027 [...] Positive( A) Negative 05/08/2024 2:17 AM EST [facility] (CLIA #:[id number]) Comment: POSITIVE TEST RESULT. A positive Cologuard [...] (Inocencia Lerner al, N Engl J Med 2014;370(14):9944-7288.) Cologuard may produce a false negative or false positive result (no colorectal cancer or precancerous polyp present at colonoscopy follow up). A negative Cologuard test result does not guarantee the absence of CRC or advanced adenoma (pre-cancer). The current Cologuard screening interval is every 3 years. ([place] Cancer Society and U.S. Multi-Society Task Force). Cologuard performance data in a 10,000 patient pivotal study using colonoscopy as the reference method can be accessed at the following location: www.WorldWide Biggies.Attender/results. Additional description of the Cologuard test process, warnings and precautions can be found at www.[email or web address]. Stool specimen (specimen) 04/30/2024 12:10 PM EST 05/01/2024 1:15 PM EST us Jailyn Ojeda MD LAB MOLECULAR DIAGNOSTICS O RDERABLES Final Result [facility] (CLIA #:[id number]) [place] [address] [address], [place] [phone] * (ABNORMAL) Lipid Panel, Standard (04/15/2024 3:27 PM EDT) Triglycerides 78 <150 mg/dL [facility] Comment:Desirable Triglyceri de: less than 150 mg/dLBorderline High Triglyceride 150-199 mg/dLHigh Triglyceride: 200-499 mg/dLVery High Triglyceride: greater than or equal to 5OO mg/dL Cholesterol 205(H) <200 mg/dL [facility] Comment:Desirable Cholestero l: less than 200 mg/dLBorderline High Cholesterol: 200-239 mg/dLHigh Cholesterol: greater than 239 mg/dL LDL Cholesterol Calculated 127(H) <100 mg/dL [facility] Comment:Desirable LDL: less than 100 mg/dLNear Optimal/Above Optimal LDL: 110- 129 mg/dLBorderline High LDL: 130-159 mg/dLHigh LDL: 160-189 mg/dLVery High LDL: greater than or equal to 190 mg/dL HDL Cholesterol 63 >40 mg/dL [facility] Comment:Desirable HDL: great er than 40 mg/dL Note: This HDL assay may give artificially low results in patients with liver disease. Blood Venous blood specimen / Unknown 04/15/2024 3:27 PM EDT 04/15/2024 5:54 PM EDT us Jailyn Ojeda MD LAB BLOOD ORDERABLES Final Result [facility] [address] [place] [address] [phone] * HEPATITIS C AB W/REFL TO HCV RNA, QN, PCR (07/06/2021 12:06 PM EST) HEPATITIS C ANTIBODY NON-REACT [facility] INDEX 0.05 <1.00 [facility] Comment: HCV antibody was non-reactive. There is no laboratory evidence of HCV infection. In most cases, no further action is required. However, if recent HCV exposure is suspected, a test for HCV RNA (test code 68142) is suggested. For additional information please refer to http://education.Totsy/faq/CPR85e1 (This link is being provided for informational/ educational purposes only.) 07/06/2021 12:0 6 PM EST us Trina Luevano MD HISTORICAL/NON ORDERABLE LABS Final Result [facility] [address] from Last 3 Months or Most Recently Relevant to Health Maintenance Insurance [place] [address] [place] [id number] [facility] Care Teams Insurance Claims Assistant Relationship Specialty Start Date End Date Jailyn Ojeda MD [address] [place] [address] [place] [address] PCP - General Internal Medicine 06/26/13
--- OUTSIDE RECORDS SUMMARY | 2025-02-21 15:07 | XMS_ITS | Encounter Summary ---
Author Organization [employer] Address 75 [facility] 7 [place] [address] Care Team Providers Care Counter Cutter Name Role Phone Jailyn Ojeda MD Primary Care Provider +1 [phone] Reason for Visit * Reason Comments Med Refill Encounter Details Date Type Department Care Team ([facility] Contact Info) Description 01/02/2025 Refill [facility] CHC MED & PEDS [address] [place], [place] [phone] Jailyn Ojeda MD [address] [place] [address] Hypercholesterolemia Social History Tobacco Use Types Packs/Day [...] hypercholesterolemia documented in this encounter Care Teams Counter Cutter Relationship Specialty Start Date End Date Jailyn Ojeda MD [address] [place] [phone] PCP - General Internal Medicine 06/26/13 documented as of this encounter
--- OUTSIDE RECORDS SUMMARY | 2025-02-21 15:07 | XMS_ITS | Encounter Summary ---
Author Organization [employer] Address [address] [facility] 7 [place] [address] Care Team Providers Care Darkroom Worker Name Role Phone Jailyn Ojeda MD Primary Care Provider [phone] Encounter Details Date Type Department Care Team ([facility] st Contact Info) Description 04/15/2024 Orders Only [facility] [address] [place] [address] Jailyn Ojeda MD [address] [place] [address] Transaminitis (Primary Dx); Hypercholesterolemia; Macrocytosis; Macrocytosis without [...] AM EST Narrative 06/11/2024 6:08 AM EST [address] [address] Ultrasound Report Signed Patient: Kike Rodriguez MR#: [id number] : 1955 Acct:[id number] Age/Sex: 68 / M ADM Date: 05/07/24 Loc: HO.US Attending Dr: Jailyn Ojeda MD Ordering Physician: Jailyn Ojeda MD Date of Service: 05/07/24 Procedure(s): US aorta Accession Number(s): [id number] cc: Jailyn Ojeda MD EXAMINATION: US RETROPERITONEAL [...] 06/11/24 0605 DD/ 1146 TD/TT: 05/07/24 1200 Damper Worker: HS Procedure Note Donotuseinterpreter, Image - 06/11/2024 [place] [address] Ultrasound Report Signed Patient: Loyda Rodriguez#: [id number] : 5Acct:[id number] Age/Sex: 68 / MADM Date: 05/07/24 Loc: HO.US Attending Dr: Jailyn Ojeda MD Ordering Physician: Jailyn Ojeda MD Date of Service: 05/07/24 Procedure(s): US aorta Accession Number(s): [id number] cc: Jailyn Ojeda MD EXAMINATION: US RETROPERITONEAL [...] Am Stephen Radiol 2013;10 (10):789-794. (Available on [email or web address]) Electronically signed by: Oren Fernandez MD 06/11/2024 06:05 AM EST Dictated By: Oren Fernandez MD Signed By: <Electronically signed by Oren Fernandez MD in OV> 06/11/24 0605 DD/ 1146 TD/TT: 05/07/24 1200 Damper Worker: HS us Jailyn Ojeda MD IM US PROCEDURES Edited Re sult - Final * Vitamin B1 (05/03/2024 3:40 PM EST) Vitamin B1 22 8 - 30 nmol/L [facility] Comment:Vitamin supplementat ion within 24 hours prior toblood draw may affect the accuracy of the results.This test was developed and its analytical performancecharacteristics have been determined by [employer] [place], [place]. It hasnot been cleared or approved by the U.S. Food and DrugAdministration. This assay has been validated pursuantto the CLIA regulations and is used for clinicalpurposes.THIS TEST WAS PERFORMED AT:[facility] [place] [address]EEPROXYNEYDA ARREDONDO MD,PHD Blood Venous blood specimen / Unknown 05/03/2024 3:40 PM EST 05/03/2024 5:52 PM EST us Jailyn Ojeda MD LAB BLOOD ORDERABLES Final Result Performing Organization Address [facility] Co de Phone Number [facility] [address] [place] [phone] * Vitamin B12/Folate, Serum Panel (05/03/2024 3:40 PM EST) Vitamin B12 650 200 - 900 pg/mL [facility] Comment:NORMAL 200-900 PG/ML INDETERMINATE 160-199 PG/ML DEFICIENT < 160 PG/ML Folate 15.2 > or = 4.0 ng/mL [facility] Comment:Reference Values:> o r = [...] BLOOD ORDERABLES Final Result Performing Organization Address [facility] Co de Phone Number [facility] [address] [place] [phone] documented in this encounter Visit Diagnoses Diagnosis Transaminitis- Primary Nonspecific elevation of levels of transaminase or lactic acid dehydrogenase (LDH) Hypercholesterolemia Pure hypercholesterolemia Macrocytosis Other specified diseases of blood and blood-forming organs Macrocytosis without anemia Other specified diseases of blood and blood-forming organs documented in this encounter Care Teams Darkroom Worker Relationship Specialty Start Date End Date Jailyn Ojeda MD [address] [place] [phone] PCP - General Internal Medicine 06/26/13 documented as of this encounter
--- OUTSIDE RECORDS SUMMARY | 2025-02-21 15:07 | XMS_ITS | Encounter Summary ---
Author Organization [employer] Address [address] [facility] 7 [place] [address] Care Team Providers Care Assembly Member Name Role Phone Jailyn Ojeda MD Primary Care Provider [phone] Reason for Visit * Reason Onset Date Comments Nurse Triage 02/07/2025 Encounter Details Date Type Department Care Team ([facility] st Contact Info) Description 02/07/2025 Telephone [facility] [address] [place] [address] Jailyn Ojeda MD [address] [place], [place] [phone] Nurse Triage Social History Tobacco Use Types [...] on filedocumented in this encounter Care Teams Assembly Member Relationship Specialty Start Date End Date Jailyn Ojeda MD [address] [place] [phone] PCP - General Internal Medicine 06/26/13 documented as of this encounter
--- OUTSIDE RECORDS SUMMARY | 2025-02-21 15:07 | XMS_ITS | Encounter Summary ---
Author Organization [employer] Address [address] [place] [address] Care Team Providers Care Forklift Truck Mechanic Name Role Phone Jailyn Ojeda MD Primary Care Provider [phone] Reason for Visit * Reason Comments Med Refill Encounter Details Date Type Department Care Team ([facility] st Contact Info) Description 06/13/2023 Refill [facility] [address] [place], [place] [phone] Jailyn Ojeda MD [address] [place] [address] Social History Tobacco Use Types Packs/Day Years [...] on filedocumented in this encounter Care Teams Forklift Truck Mechanic Relationship Specialty Start Date End Date Jailyn Ojeda MD [address] [place] [address] PCP - General Internal Medicine 06/26/13 documented as of this encounter
--- NOTE | 2025-02-21 15:09 | MHC.OFFVIS ---
Vital Signs 02/21/25 15:10 Height 5 ft 7 in Weight 159 lb 4 oz BMI 24.9 BP 162/64 H Blood Pressure Location Rt brachial Position Sitting Pulse 83 Pulse Source Pulse Oximeter Pulse Oximetry (%) 94 Oxygen Delivery Method Room Air Intake Visit Reasons: COPD Allergies No Known Allergies Allergy (Unverified 02/21/25 15:12) HPI HPI COPD: Details: Kike is a pleasant 69 year old male, current 45 pack year smoker, with underlying COPD, and HLD. He was initially referred by GI for pulmonary evaluation and preoperative clearance for upcoming colonoscopy. He had his first LDCT 09/2024 through the lung screening program which revealed mild centrilobular emphysema, biapical pleural-parenchymal scarring and 2mm pulmonary nodule DEREK. Repeat LDCT will be scheduled in one year. At the last visit, he reports improvements in wheezing with the initiation of Breo 100 mcg however continues with intermittent dyspnea and productive cough with clear sputum. Today he presents to review PFT results. He denies any visits to urgent care or hospitalizations related to respiratory distress since the last visit. He denies any need for abx/steroids in the last month. He denies any prior need for supplemental oxygen. [facility] Medical History (Updated 02/24/25 @ 12:41 by Sayda Burroughs NP) Transaminitis Liver cyst Hepatic steatosis Hyperlipidemia Nicotine dependence, cigarettes, uncomplicated Surgical History History of colonoscopy Social History (Reviewed 02/21/25 @ 15:12 by Mildred Puckett [facility]) Patient Tobacco Use Status: Current everyday Tobacco user Tobacco use type: Cigarette Cigarettes Per Day: 22 Years Smoked: (onset 19yo, 1ppd x 49yrs, 40pyh) Review of Systems Const Denies chills, Denies excessive sweating, Denies fever(s), Denies headache(s) and Denies night sweats Eyes Denies dry eyes, Denies irritation and Denies itchy eyes ENT Reports Normal hearing present, Denies headache(s), Denies nasal congestion, Denies nasal discharge, Denies post nasal drip and Denies sore throat Card Denies chest pain, Denies chest pain at rest, Denies chest pain with activity, Denies claudication, Denies leg edema, Reports dyspnea on exertion, Denies orthopnea and Denies paroxysmal nocturnal dyspnea Resp Denies change in phlegm color, Denies chest congestion, Reports cough, Denies hemoptysis, Denies excessive phlegm production, Denies pain on inspiration, Denies pain with cough, Reports dyspnea on exertion, Denies stridor and Denies wheezing Musc Denies myalgias Neuro Reports Normal hearing present and Denies headache(s) Endo Denies excessive sweating Alex/Lymph Denies lymphadenopathy Aller/Immun Denies itchy eyes, Denies seasonal rhinorrhea and Denies wheezing Physical Exam Vital Signs: Last Vital Signs Pulse 83 02/21/25 15:10 BP 162/64 H 02/21/25 15:10 Pulse Ox 94 02/21/25 15:10 Oxygen Delivery Method Room Air 02/21/25 15:10 BMI result Body Mass Index 24.9 Const General: cooperative, healthy appearing, comfortable, no acute distress, well developed and alert Orientation/consciousness: patient oriented x3 Limitations: no limitations HEENT Head: Yes normal to inspection, Yes normocephalic and Yes atraumatic Ears: hearing grossly normal bilaterally and external ears normal Eyes General: appearance normal, both eyes and all related structures Eyelids: Yes eyelids normal Sclerae: sclerae normal EOM: EOMs intact bilaterally Neck Neck: Yes normal visual inspection and Yes no lymphadenopathy Lymphatic: no lymphadenopathy noted Chest Chest palpation & inspection: normal inspection of the chest Resp Effort & Inspection: normal respiratory effort, able to speak in complete sentences, no audible wheezes, no cough, no stridor, not tachypneic, no tripod positioning and no use of accessory muscles Auscultation: diminished lung sounds Cardio Jugular venous distension: no JVD Rate: regular rate Rhythm: regular rhythm Skin Other: warm, dry General skin exam: no rashes or lesions noted Neuro General: patient oriented x3 Cranial nerves: Yes Normal hearing present Cognition (Neuro): normal cognition Gait exam (Neuro): Normal gait present Extrem General: Yes normal to inspection, Yes capillary refill normal, Yes no clubbing, cyanosis or edema and Yes no pedal edema Psych Appearance: grossly normal and well kempt Speech and movement: Normal speech and movement present and Clear speech present Affect: normal affect Attitude: cooperative Thought process: Normal thought process present Thought content: Normal thought content present Insight: Good insight present (Psych) Judgement: Good judgement present (Psych) Assessment & Plan Assessment & Plan (1) COPD (chronic obstructive pulmonary disease): Code(s): J44.9 - Chronic obstructive pulmonary disease, unspecified Category: Medical (2) Nicotine dependence, cigarettes, uncomplicated: Code(s): F17.210 - Nicotine dependence, cigarettes, uncomplicated Category: Medical (3) Pulmonary nodule: Code(s): R91.1 - Solitary pulmonary nodule Category: Medical (4) Encounter for preoperative pulmonary examination: Code(s): Z01.811 - Encounter for preprocedural respiratory examination Category: Medical Plan Reviewed PFT which revealed Moderate obstructive ventilatory defect with no bronchodilator response. Increased residual volume suggests air trapping. Decreased diffusion capacity suggests emphysema. He reports overall improvements since starting Breo however continues with intermittent respiratory symptoms. Will increase Breo. He is aware to call if symptoms do not improve. Currently respiratory exam unremarkable and VSS, no need for abx/steroids in the last month for URI and no prior need for supplemental oxygen. LDCT revealed 2mm pulmonary nodule of DEREK, mild centrilobular emphysema and biapical pleural-parenchymal scarring. At this time, patient would be considered low risk for pulmonary complications for proposed colonoscopy. Consider bronchodilators in the perioperative period. All questions were answered and patient is in agreement of plan. Will follow up in 6-8 weeks or sooner if needed. Medications: New fluticasone furoate-vilanterol 200-25 mcg/dose (Breo Ellipta) 1 inh inhalation DAILY 60 ea 3RF Discontinued Breo Ellipta 100-25 mcg/dose (fluticasone furoate-vilanterol) Discontinued Reason: Duplicate 1 inh inhalation DAILY 60 ea 3RF NS Coding Level of Care Code Est Pt Level 4 (84422) Complex EM visit Add On G2211 Diagnoses COPD (chronic obstructive pulmonary disease) J44.9 Nicotine dependence, cigarettes, uncomplicated F17.210 Pulmonary nodule R91.1 Encounter for preoperative pulmonary examination Z01.811
[2025-02-21 15:10] VITALS: BP 162/64; PULSE 83; O2SAT 94; BMI 24.9
== END 2025-02-21 15:40 | disposition home or self-care (01) ==
LOC: HO.HPSW 15:04
PROVIDERS: PCP Internal Medicine; Visit Provider Nurse Practitioner Family
DX: J44.9 Chronic obstructive pulmonary disease, unspecified (principal); F17.210 Nicotine dependence, cigarettes, uncomplicated; R91.1 Solitary pulmonary nodule; Z01.811 Encounter for preprocedural respiratory examination
CPT/HCPCS: 99214; G2211

== ENCOUNTER → 2025-02-21 15:04 | Outpatient (BNVA) | payer MEDICARE, MEDICAID, SELFPAY | PROVIDERS: PCP Internal Medicine; Visit Provider Nurse Practitioner Family | DX: Z01.811 Encounter for preprocedural respiratory examination (principal); R91.1 Solitary pulmonary nodule; F17.210 Nicotine dependence, cigarettes, uncomplicated; J44.9 Chronic obstructive pulmonary disease, unspecified | CPT/HCPCS: 99212 ==

== ENCOUNTER 2025-04-04 14:43 | Outpatient (REF) | payer MEDICARE, MEDICAID, SELFPAY ==
--- OUTSIDE RECORDS SUMMARY | 2025-04-04 14:00 | XMS_ITS | Encounter Summary ---
Author Organization [employer] Address [address] [place] [address] Care Team Providers Care Automation Controls Specialist Name Role Phone Abe Ojeda MD Primary Care Provider [phone] Reason for Referral * Cardiology (Routine) - Authorized Specialty Diagnoses / Procedures Referred By Contac t Referred To Contact Cardiology Diagnoses Palpitations Procedures Holter monitor - 48 hour Abe Ojeda MD [address] [place] [address] Phone: tel: fax: [address] Phone: tel: fax: Referral ID Status Reason Start Date Expiration Date V isits Requested Visits Authorized [id number] Authorized 04/04/2025 04/04/2026 1 1 Reason for Visit * Reason Comments Annual Exam Encounter Details Date Type Department Care Team (Late st Contact Info) Description 04/04/2025 2:00 PM EDT Office Visit [facility] [address] [place], [place] [phone] Abe Ojeda MD [address] [place], [place] [phone] Annual physical exam (Primary Dx); Vitamin D deficiency; Transaminitis; Hypercholesterolemia; Smoker; Alcoholism (CMS/HCC) (HCC); Palpitations; Primary hypertension; Encounter for immunization Social History Tobacco Use Types Packs/Day Years [...] more drinks on one occasion? 5 04/15/2024 Depression Answer Date Recorded Patient Health Questionnaire-9 Score 0 04/04/2025 Patient Health Questionnaire-9 Score 0 04/04/2025 Last PHQ-9: Questionnaire Data Not on file 1 Housing Stability Answer Date Recorded What is [...] off services in your home? No 04/15/2024 Depression Answer Date Recorded Patient Health Questionnaire-2 Score 0 04/04/2025 Internet Access Answer Date Recorded Internet Access Q1 Yes 04/15/2024 Internet Access Q2 Not on file 04/15/2024 Sex and Gender Information Value Date Recorded Sex Assigned at Male 04/18/2022 10:20 AM EDT Legal Sex Male 10:20 AM EDT Gender Identity Male 04/18/2022 10:20 AM EDT Sexual Orientation Straight 04/18/2022 10 :20 AM EDT documented as of this encounter Last Filed Vital Signs Vital Sign Reading Time Taken Comments Blood Pressure 164/79 04/04/2025 2:04 PM EDT Pulse 89 04/04/2025 2:04 PM EDT Temperature - - Respiratory Rate 20 04/04/2025 2:04 PM EDT Oxygen Saturation 95% 04/04/2025 2:04 PM EDT Inhaled Oxygen Concentration - - Weight 70.3 kg (155 lb) 04/04/2025 2:04 PM EDT Height 170.2 cm (5' 7 ) 04/04/2025 2:04 PM EDT Body Mass Index 24.28 04/04/2025 2:04 PM EDT documented in this encounter Functional Status * Over the past 2 weeks, how often have you been bothered by any of the following problems? Question Answer Date of Assessment Author Patient Health Questionnaire-2 Score 0 03/19 2:12 PM EDT Kim Coughlin MA * Little interest or pleasure in doing things Answer Date of Assessment Author Not at all 04/04/2025 2:12 PM EDT Jordon Coughlin MA * Feeling down, depressed, or hopeless Answer Date of Assessment Author Not at all 04/04/2025 2:12 PM EDT Jordon Coughlin MA * Trouble falling or staying asleep, or sleeping too much Answer Date of Assessment Author Not at all 04/04/2025 2:12 PM EDT Jordon Coughlin MA * Feeling tired or having little energy Answer Date of Assessment Author Not at all 04/04/2025 2:12 PM EDT Jordon Coughlin MA * Poor appetite or overeating Answer Date of Assessment Author Not at all 04/04/2025 2:12 PM EDT Jordon Coughlin MA * Feeling bad about yourself - or that you are a failure or have let yourself or your family down Answer Date of Assessment Author Not at all 04/04/2025 2:12 PM EDT Jordon Coughlin MA * Trouble concentrating on things, such as reading the newspaper or watching television Answer Date of Assessment Author Not at all 04/04/2025 2:12 PM EDT Jordon Coughlin MA * Moving or speaking so slowly that other people could have noticed? Or the opposite - being so fidgety or restless that you have been moving around a lot more than usual. Answer Date of Assessment Author Not at all 04/04/2025 2:12 PM EDT Jordon Coughlin MA * Thoughts that you would be better off or hurting yourself in some way Answer Date of Assessment Author Not at all 04/04/2025 2:12 PM EDT Jordon Coughlin MA * Patient Health Questionnaire-9 Score Answer Date of Assessment Author 0 04/04/2025 2:12 PM EDT Jordon Coughlin MA documented as of this encounter Progress Notes * Abe Ojeda MD - 04/04/2025 2:00 PM EDT SUBJECTIVE Kike Lock is a 69 y.o. male who presents for Annual Exam. HPI Here for his annual physical exam Pt admits one episode of palpitations 3 and 1/2 month ago that lasted seconds. No associated Chest pain or WELLS. Pt was standing in line at a store when it happened. No further episodes. Denies palpitations during the evaluation today. Problem List[1] Allergies[2] Medications Ordered Prior to Encounter[3] Review of Systems Constitutional: Negative for activity change, appetite change, chills and diaphoresis. HENT: Negative for dental problem, drooling and ear discharge. Eyes: Negative for pain and itching. Respiratory: Negative for cough, choking and chest tightness. Cardiovascular: Negative for palpitations and leg swelling. Gastrointestinal: Negative for abdominal pain, anal bleeding and blood in stool. Endocrine: Negative for cold intolerance and heat intolerance. Genitourinary: Negative for flank pain, frequency and genital sores. Musculoskeletal: Negative for back pain. Neurological: Negative for light-headedness, numbness and headaches. Psychiatric/Behavioral: Negative for agitation, confusion and decreased concentration. OBJECTIVE BP (!) 164/79 (BP Location: Left arm, Patient Position: Sitting, BP Cuff Size: Adult) Pulse 89 Resp 20 Ht 5' 7 (1.702 m) Wt 155 lb (70.3 kg) SpO2 95% BMI 24.28 kg/m?? There were no vitals filed for this visit. Physical Exam Constitutional: General: He is not in acute distress. Appearance: Normal appearance. He is not ill-appearing, toxic-appearing or diaphoretic. Cardiovascular: Rate and Rhythm: Normal rate. Heart sounds: No murmur heard. Pulmonary: Effort: Pulmonary effort is normal. Breath sounds: Normal breath sounds. Abdominal: Palpations: Abdomen is soft. Skin: General: Skin is warm. Neurological: General: No focal deficit present. Mental Status: He is alert. Psychiatric: Mood and Affect: Mood normal. Assessment/Plan Assessment/Plan Diagnoses and all orders for this visit: Annual physical exam Comments: NOrmal cardiopulmonary exam Pt is to maintain a healthy and balanced diet Orders: - PSA, Total With Reflex to PSA, Free; Future Vitamin D deficiency Comments: Repeat Vit D level. Pt will be called w/ results. Orders: - Vitamin D, 25-Hydroxy, Total, Immunoassay; Future - Vitamin B12/Folate, Serum Panel; Future - Magnesium; Future Transaminitis Comments: labs ordered. Hypercholesterolemia Comments: Low chol diet Pt will be called w/ the results of the blood work Orders: - Lipid Panel, Standard; Future Smoker - nicotine (Nicoderm CQ) 7 MG/24HR patch; Place 1 patch on the skin 1 (one) time each day at the same time. Alcoholism ([facility]/HCC) ([facility]) Comments: Stil drinks a 6-pack a day. Not interested in getting help to quit. Orders: - Vitamin D, 25-Hydroxy, Total, Immunoassay; Future - Vitamin B12/Folate, Serum Panel; Future - Magnesium; Future Palpitations - CBC auto differential; Future - Comprehensive Metabolic Panel; Future - TSH with Reflex to Free T4; Future - Holter monitor - 48 hour; Future Primary hypertension Comments: BP check at home. Keep the log to report at the next visit. Orders: - Blood Pressure kit; To check the BP daily Encounter for immunization - TDAP VACCINE 7 yrs + - FLU VACCINE TRIVALENT HIGH DOSE [id number] (Fluzone) 65 yrs + [1] Patient Active Problem List Diagnosis Alcoholism (CMS/HCC) ([facility]) Smoker Tooth disorder Vitamin D deficiency Transaminitis Hypercholesterolemia Macrocytosis without anemia [2] No Known Allergies [3] Current Outpatient Medications on File Prior to Visit Medication Sig Dispense Refill atorvastatin (Lipitor) 20 MG tablet TAKE 1 TABLET(20 MG) BY MOUTH DAILY 30 tablet 11 B Complex Vitamins (RA B-Complex with B-12) tablet Take by mouth. Blood Pressure kit BP check Daily 1 kit 0 cholecalciferol (Vitamin D-3) 25 MCG (1000 UT) capsule Take 1 capsule by mouth Once per day. co-enzyme Q-10 30 MG capsule Take 1 capsule (30 mg) by mouth Once per day. 30 capsule 11 doxazosin (Cardura) 2 MG tablet TAKE 1 TABLET BY MOUTH EVERY DAY 90 tablet 3 [DISCONTINUED] atorvastatin (Lipitor) 20 MG tablet Take 1 tablet (20 mg) by mouth Once per day. 30 tablet 11 No current facility-administered medications on file prior to visit. documented in this encounter Miscellaneous Notes * Addendum Note - Abe Ojeda MD - 04/04/2025 2:00 PM EDTAddended by: ABE OJEDA on: 04/04/2025 03:26 PM Modules accepted: Orders documented in this encounter Plan of Treatment Upcoming Encounters Date Type Department Care Team (Late st Contact Info) Description 05/19/2025 3:15 PM EST Office Visit [facility] [address] [place] [address] Abe Ojeda MD [address] [place] [address] Scheduled Orders Name Type Priority Associated Diagnoses Order Schedule CBC auto differential Lab Routine Palpitations Expected: 04/04/2025 (Approximate), Expires: 04/04/2026 Comprehensive Metabolic Panel Lab Routine Palpitations Expected: 04/04/2025 (Approximate), Expires: 04/04/2026 Lipid Panel, Standard Lab Routine Hypercholesterolemi a Expected: 04/04/2025 (Approximate), Expires: 04/04/2026 TSH with Reflex to Free T4 Lab Routine Palpitations Expected: 04/04/2025 (Approximate), Expires: 04/04/2026 Vitamin D, 25-Hydroxy, Total, Immunoassay Lab Routine Vitamin D deficiency Alcoholism (CMS/HCC) (HCC) Expected: 04/04/2025 (Approximate), Expires: 04/04/2026 Vitamin B12/Folate, Serum Panel Lab Routine Vitamin D deficiency Alcoholism ([facility]) ([facility]) Expected: 04/04/2025, Expires: 04/04/2026 Magnesium Lab Routine Vitamin D deficiency Alcoholism ([facility]) ([facility]) Expected: 04/04/2025, Expires: 04/04/2026 Holter monitor - 48 hour Cardiac Services Routine Palpitations Expected: 04/04/2025 (Approximate), Expires: 04/04/2027 PSA, Total With Reflex to PSA, Free Lab Routine Annual physical exam Expected: 04/04/2025 (Approximate), Expires: 04/04/2026 documented as of this encounter Procedures Procedure Name Priority Date/Time Associated Diagnosis Comments ECG 12-LEAD Routine 04/04/2025 3:26 PM EDT Palpitations documented in this encounter Results * ECG 12 lead (04/04/2025 3:26 PM EDT) Narrative Abe Ojeda MD - 04/04/2025 3:26 PM EDT Heart rate 72 bpm. Greer -30 degrees. Horizontal axis. No sign of left atrial enlargement or right atrial enlargement. No sign of hypertrophy. Sinus rhythm. Abnormal EKG. us Abe Ojeda MD ECG ORDERABLES Final Resul t documented in this encounter Visit Diagnoses Diagnosis Annual physical exam- Primary Routine general medical examination at a health care facility Vitamin D deficiency Transaminitis Nonspecific elevation of levels of transaminase or lactic acid dehydrogenase (LDH) Hypercholesterolemia Pure hypercholesterolemia Smoker Tobacco use disorder Alcoholism ([facility]) ([facility]) Other and unspecified alcohol dependence, unspecified drinking behavior Palpitations Primary hypertension Unspecified essential hypertension Encounter for immunization documented in this encounter Additional Health Concerns Assessment Noted Time PHQ-9 Depression Total Score: 0 04/04/20 25 2:12 PM EDT documented as of this encounter Care Teams Automation Controls Specialist Relationship Specialty Start Date End Date Abe Ojeda MD [address] [place] [id number] PCP - General Internal Medicine 06/26/13 documented as of this encounter
--- OUTSIDE RECORDS SUMMARY | 2025-04-04 17:14 | XMS_ITS | Clinical Summary ---
Author Organization [employer] Address [address] [place] [address] Care Team Providers Care Women'S Apparel Salesperson Name Role Phone Jailyn Ojeda MD Primary Care Provider [phone] Allergies No known active allergies Medications cholecalciferol (Vitamin D-3) 25 MCG (1000 UT) capsule Take 1 capsule by mouth Once per day. 12/09/19 20 Active B Complex Vitamins (RA B-Complex with B-12) tablet Take by mouth. 08/06/19 20 Active Blood Pressure kitIndications:E levated BP without diagnosis of hypertension BP check Daily 1 kit 04/15/20 24 Active co-enzyme Q-10 30 MG capsuleIndicatio ns:Hypercholeste rolemia Take 1 capsule (30 mg) by mouth Once per day. 30 capsule 11 04/15/20 24 025 Active doxazosin (Cardura) 2 MG tablet TAKE 1 TABLET BY MOUTH EVERY DAY 90 tablet 3 07/30/19 25 Active atorvastatin (Lipitor) 20 MG tabletIndication s:Hypercholester olemia TAKE 1 TABLET(20 MG) BY MOUTH DAILY 30 tablet 11 04/02/20 25 Active nicotine (Nicoderm CQ) 7 MG/24HR patchIndications :Smoker Place 1 patch on the skin 1 (one) time each day at the same time. 30 patch 04/04/20 25 025 Active Blood Pressure kitIndications:P rimary hypertension To check the BP daily 1 kit 04/04/20 25 Active atorvastatin (Lipitor) 20 MG tabletIndication s:Hypercholester olemia Take 1 tablet (20 mg) by mouth Once per day. 30 tablet 11 10 025 Discontinued Active Problems Problem Noted Date Diagnosed Date Transaminitis 04/15/2024 Hypercholesterolemia 04/15/2024 Macrocytosis without anemia 04/15/2024 Alcoholism ([facility]) 12/19/2012 Smoker 12/19/2012 Tooth disorder 12/19/2012 Vitamin D deficiency 12/19/2012 Encounters Date Type Department Care Team Description 04/04/2025 2:00 PM EDT Office Visit [facility] [address] [place] [address] Jailyn Ojeda MD Annual physical exam (Primary Dx); Vitamin D deficiency; Transaminitis; Hypercholesterolemia; Smoker; Alcoholism ([facility]) ([facility]); Palpitations; Primary hypertension; Encounter for immunization 04/04/2025 Travel 04/03/2025 Telephone [facility] [address] [place] [address] Jailyn Ojeda MD Chart Prep 04/01/2025 Refill [facility] [address] [place] [address] Jailyn Ojeda MD Hypercholesterolemia 02/07/2025 Telephone [facility] [address] [place] [phone] Jailyn Ojeda MD Nurse Triage 01/14/2025 Telephone [facility] [address] [place] [address] Jailyn Ojeda MD 01/02/2025 Refill [facility] [address] [place] [address] Jailyn Ojeda MD Hypercholesterolemia from Last 3 Months Immunizations Immunization Administration Dates Next Due Influenza High-dose Quadriva lent Preservative Free 04/01/2023 Influenza Quadrivalent Adjuvanted 06/03/2022, Influenza injectable quadriv alent IIV4 with preservative 03/16/2018,06/06/2017,03/07/2016,2014 Influenza injectable quadriv alent preservative free 03/07/2019 Influenza, High Dose Seasona l, Preservative Free 04/04/2025,04/15/2024 Influenza, IIV3, injectable 03/19/2014, 1 Influenza, Split (incl. gaudencio fied surface antigen) 03/19/2013 Pneumococcal Conjugate PCV 20 04/15/2024 Tdap 04/04/2025,12/19/2012 Zoster, Recombinant 10/12/2021,08/13/2021 Family History Medical History [...] Pulse 89 04/04/2025 2:04 PM EDT Temperature 36.2 C (97.2 F) 04/15/2024 2:37 PM EDT Respiratory Rate 20 04/04/2025 2:04 PM EDT Oxygen Saturation 95% 04/04/2025 2:04 PM EDT Inhaled Oxygen Concentration - - Weight 70.3 kg (155 lb) 04/04/2025 2:04 PM EDT Height 170.2 cm (5' 7 ) 04/04/2025 2:04 PM EDT Body Mass Index 24.28 04/04/2025 2:04 PM EDT Plan of Treatment Upcoming Encounters Date Type Department Care Team (Late st Contact Info) Description 05/19/2025 3:15 PM EST Office Visit [facility] [address] [place] [address] Jailyn Ojeda MD [address] [place] [address] Health Maintenance Due Date Last Done Comments CT Colonography 1954 Colonoscopy 1954 FIT 1954 Sigmoidoscopy 1954 COVID-19 Vaccine ( season) 2025 04/01/2023, 06/03/2022, 04/15/2021, Additional history exists FOBT 04/30/2025 04/30/2024 Alcohol/Substance Use Screening 04/04/2026 04/04/2025 Depression Screening 04/04/2026 04/04/2025, 04/04/20 SDOH Screening 04/04/2026 04/04/2025 Tobacco Screening 04/04/2026 04/04/2025 Colorectal Cancer Screening 04/30/2027 FIT DNA/Cologuard 04/30/2027 04/30/2024 Lipid Panel 04/15/2029 04/15/2024 RSV Patients and Patients Aged 60 years or older (1 - 1-dose 75+ series) 2029 DTaP/Tdap/Td Vaccines (3 - Td or Tdap) 04/04/2035 04/04/2025, 12/19/2012 Hepatitis C Screening Completed 07/06/2021 Zoster Vaccines Completed 10/12/2021, 08/13/2021 Pneumococcal Vaccine: 50+ Years Completed 04/15/2024 Influenza Vaccine Completed 04/04/2025, , 04/01/2023, Additional history exists HIB Vaccines Aged Out No longer eligi [...] 12-LEAD Routine 04/04/2025 3:26 PM EDT Palpitations LAB COLOGUARD COLON CANCER SCREEN Routine 04/30/2024 12:10 PM EST Screening for colon cancer Transaminitis LIPID PANEL, STANDARD Routine 04/15/2024 3:27 PM EDT Elevated BP without diagnosis of hypertension Transaminitis ZZZ HISTORICAL HEPATITIS C AB W/REFL TO HCV RNA, QN, PCR Routine 07/06/2021 12:06 PM EST from Last 3 Months or Most Recently Relevant to Health Maintenance Results * ECG 12 lead (04/04/2025 3:26 PM EDT) Jailyn Neil MD - 04/04/2025 3:26 PM EDT Heart rate 72 bpm. Arimo -30 degrees. Horizontal axis. No sign of left atrial enlargement or right atrial enlargement. No sign of hypertrophy. Sinus rhythm. Abnormal EKG. us Jailyn Ojeda MD ECG ORDERABLES Final Resul t * (ABNORMAL) Cologuard?? colon cancer screening (04/30/2024 12:10 PM EST) Cologuard Result Positive( A) Negative 05/08/2024 2:17 AM EST [facility] (CLIA #:[id number]) Comment: POSITIVE TEST RESULT. A positive Cologuard [...] Stokes. et al, N Engl J Med 2014;370(14):7979-5825.) Cologuard may produce a false negative or false positive result (no colorectal cancer or precancerous polyp present at colonoscopy follow up). A negative Cologuard test result does not guarantee the absence of CRC or advanced adenoma (pre-cancer). The current Cologuard screening interval is every 3 years. ([place] [employer] and U.S. Multi-Society Task Force). Cologuard performance data in a 10,000 patient pivotal study using colonoscopy as the reference method can be accessed at the following location: www.Meet.com/results. Additional description of the Cologuard test process, warnings and precautions can be found at www.[employer].com. Stool specimen (specimen) 04/30/2024 12:10 PM EST 05/01/2024 1:15 PM EST us Jailyn Ojead MD LAB MOLECULAR DIAGNOSTICS O RDERABLES Final Result [facility] (CLIA #:[id number]) [address] [place] [address], * (ABNORMAL) Lipid Panel, Standard (04/15/2024 3:27 PM EDT) Triglycerides 78 <150 mg/dL [facility] Comment:Desirable Triglyceri de: less than 150 mg/dLBorderline High Triglyceride 150-199 mg/dLHigh Triglyceride: 200-499 mg/dLVery High Triglyceride: greater than or equal to 5OO mg/dL Cholesterol 205(H) <200 mg/dL [facility] Comment:Desirable Cholestero l: less than 200 mg/dLBorderline High Cholesterol: 200-239 mg/dLHigh Cholesterol: greater than 239 mg/dL LDL Cholesterol Calculated 127(H) <100 mg/dL [facility] Comment:Desirable LDL: less than 100 [...] Ojeda MD LAB BLOOD ORDERABLES Final Result [facility] [address] [place] [address] [phone] * HEPATITIS C AB W/REFL TO HCV RNA, QN, PCR (07/06/2021 12:06 PM EST) HEPATITIS C ANTIBODY NON-REACT FRANCES NON-REACT FRANCES [facility] INDEX 0.05 <1.00 [facility] Comment: HCV antibody was non-reactive. There is no laboratory evidence of HCV infection. In most cases, no further action is required. However, if recent HCV exposure is suspected, a test for HCV RNA (test code 81956) is suggested. For additional information please refer to http://education.[employer]/faq/UGV24e7 (This link is being provided for informational/ educational purposes only.) 07/06/2021 12:0 6 PM EST us Trina Luevano MD HISTORICAL/NON ORDERABLE LABS Final Result Performing Organization Address City/[facility]/ZIP Co de Phone Number [facility] [address] from Last 3 Months or Most Recently Relevant to Health Maintenance Insurance MEDICARE [facility] [place] [id number] Care Teams Women'S Apparel Salesperson Relationship Specialty Start Date End Date Jailyn Ojeda MD [address] [place] [address] GRACE Hernandez [phone] PCP - General Internal Medicine 06/26/13
--- OUTSIDE RECORDS SUMMARY | 2025-04-04 17:14 | XMS_ITS | Encounter Summary ---
Author Organization [employer] Address [address] [place] [address] Care Team Providers Care Computer Information Science Professor Name Role Phone Jailyn Ojeda MD Primary Care Provider [phone] Reason for Referral * Consultation (Routine) - Closed Specialty Diagnoses / Procedures Referred By Contac t Referred To Contact Gastroenterology Diagnoses Positive colorectal cancer screening using Cologuard test Jailyn Ojeda MD [address] [place] [phone] Phone: tel: fax: Soraida Cortes MD [address] [place] [phone] Phone: tel: fax: Referral ID Status Reason Start Date Expiration Date V isits Requested Visits Authorized [id number] Closed Specialty Services Required 05/08/2024 05/08/2025 1 1 Encounter Details Date Type Department Care Team (Late st Contact Info) Description 05/08/2024 Orders Only [facility] [address] [place], [place] [phone] Jailyn Ojeda MD [address] [place] [address] [phone] Transaminitis (Primary Dx); Positive colorectal cancer screening [...] as of this encounter Plan of Treatment Upcoming Encounters Date Type Department Care Team ([facility] Contact Info) Description 05/19/2025 3:15 PM EST Office Visit [facility] [address] [place] [address] Jailyn Ojeda MD [address] [place] [address] Scheduled Referrals Name Type Priority Associated Diagnoses Order Schedule Referral to Gastroenterology Outpatient Referral Routine Positive colorectal cancer screening using Cologuard test Expected: 05/08/2024 (Approximate), Expires: 05/08/2025 documented as of this encounter Visit Diagnoses Diagnosis Transaminitis- Primary Nonspecific elevation of levels of transaminase or lactic acid dehydrogenase (LDH) Positive colorectal cancer screening using Cologuard test documented in this encounter Care Teams Computer Information Science Professor Relationship Specialty Start Date End Date Jailyn Ojeda MD [address] [place] [phone] PCP - General Internal Medicine 06/26/13 documented as of this encounter
--- OUTSIDE RECORDS SUMMARY | 2025-04-04 17:14 | XMS_ITS | Encounter Summary ---
Author Organization [employer] Address [address] [place] [address] Care Team Providers Care Gold Layer Name Role Phone Jailyn Ojeda MD Primary Care Provider +1 [phone] Reason for Visit * Reason Onset Date Comments Chart Prep 04/03/2025 Encounter Details Date Type Department Care Team ([facility] Contact Info) Description 04/03/2025 Telephone [facility] CHC MED & PEDS [address] [place] [address] Jailyn Ojeda MD [address] [place] [address] Chart Prep Social History Tobacco Use Types Packs/Day Years [...] encounter Miscellaneous Notes * Telephone Encounter - Malina Peace MA - 04/03/2025 10:43 AM EDT Chart Prep Labs: not applicable Images: done Referrals: complete Vaccines due: Flu, PCV20, and Tdap Screenings: not applicable Overdue care gaps: SBIRT, SDOH, PHQ-9, and Oral health screening documented in this encounter Plan of Treatment Upcoming Encounters Date Type Department Care Team ([facility] st Contact Info) Description 05/19/2025 3:15 PM EST Office Visit [facility] CHC MED & PEDS [address] [facility] [place] [address] Jailyn Ojeda MD [address] [place] [address] documented as of this encounter Visit Diagnoses Not on filedocumented in this encounter Care Teams Gold Layer Relationship Specialty Start Date End Date Jailyn Ojeda MD [address] [place] [address] PCP - General Internal Medicine 06/26/13 documented as of this encounter
--- OUTSIDE RECORDS SUMMARY | 2025-04-04 17:14 | XMS_ITS | Encounter Summary ---
Author Organization [employer] Address 75 [facility] 7t [place] [address] Care Team Providers Care Technical Specialist Name Role Phone Jailyn Ojeda MD Primary Care Provider +1 [phone] Encounter Details Date Type Department Care Team (Latest Contact Info) Description 04/04/2025 Travel Social History Tobacco Use Types Packs/Day Years [...] is your housing situation today? I have tipjory bliss 04/15/[address] you [...] as of this encounter Functional Status * Over the [...] [place] documented as of this encounter Plan of Treatment Upcoming Encounters Date Type Department Care Team (Late st Contact Info) Description 05/19/2025 3:15 PM EST Office Visit [facility] CHC MED & PEDS [address] [place] [address] Jailyn Ojeda MD [address] [place] [address] documented as of this encounter Visit Diagnoses Not on filedocumented in this encounter Additional Health Concerns Assessment Noted Time PHQ-9 Depression Total Score: 0 04/04/20 25 2:12 PM EDT documented as of this encounter Care Teams Technical Specialist Relationship Specialty Start Date End Date Jailyn Ojeda MD [address] [place] [address] PCP - General Internal Medicine 06/26/13 documented as of this encounter
--- OUTSIDE RECORDS SUMMARY | 2025-04-04 17:14 | XMS_ITS | Encounter Summary ---
Author Organization [email or web address] Address 75 [facility] 7 [place] [address] Care Team Providers Care Electrical Accessories Ii Assembler Name Role Phone Jailyn Ojeda MD Primary Care Provider [phone] [phone] Reason for Visit * Reason Comments Med Refill Encounter Details Date Type Department Care Team ([facility] Contact Info) Description 04/01/2025 Refill [facility] CHC MED & PEDS [address] [place], [place] [phone] Jailyn Ojeda MD [address] [place] [address] Hypercholesterolemia Social History Tobacco Use Types Packs/Day [...] Upcoming Encounters Date Type Department Care Team ([facility] st Contact Info) Description 05/19/2025 3:15 PM EST Office Visit [facility] MED & PEDS [address] [place] [address] Jailyn Ojeda MD [address] [place] [address] documented as of this encounter Visit Diagnoses Diagnosis Hypercholesterolemia Pure hypercholesterolemia documented in this encounter Care Teams Electrical Accessories Ii Assembler Relationship Specialty Start Date End Date Jailyn Ojeda MD [address] [place] [address] PCP - General Internal Medicine 06/26/13 documented as of this encounter
--- OUTSIDE RECORDS SUMMARY | 2025-04-04 17:14 | XMS_ITS | Encounter Summary ---
Author Organization [employer] Address 75 [facility] 7 [place] [address] Care Team Providers Care Beam Dyer Operator Name Role Phone Jailyn Ojeda MD Primary Care Provider +1 [phone] Reason for Visit * Reason Onset Date Comments Nurse Triage 02/07/2025 Encounter Details Date Type Department Care Team ([facility] st Contact Info) Description 02/07/2025 Telephone [facility] MEDICINE [address] [place] [address] Jailyn Ojeda MD [address] [place], [place] [phone] Nurse Triage Social History Tobacco Use Types [...] Description 05/19/2025 3:15 PM EST Office Visit [facility] CHC MED & PEDS [address] [place] [address] Jailyn Ojeda MD [address] [place] [address] documented as of this encounter Visit Diagnoses Not on filedocumented in this encounter Care Teams Beam Dyer Operator Relationship Specialty Start Date End Date Jailyn Ojeda MD [address] [place] [address] PCP - General Internal Medicine 06/26/13 documented as of this encounter
--- OUTSIDE RECORDS SUMMARY | 2025-04-04 17:14 | XMS_ITS | Encounter Summary ---
Author Organization [employer] Address 75 [facility] 7 [place] [address] Care Team Providers Care Mat Inspector Name Role Phone Jailyn Ojeda MD Primary Care Provider [phone] [phone] Reason for Visit * Reason Comments Med Refill Encounter Details Date Type Department Care Team ([facility] Contact Info) Description 01/02/[address] [facility] CHC MED & PEDS [address] [place], [place] [phone] Jailyn Ojeda MD [address] [place] [address] Hypercholesterolemia Social History Tobacco Use Types Packs/Day [...] Upcoming Encounters Date Type Department Care Team ([facility] st Contact Info) Description 05/19/2025 3:15 PM EST Office Visit [facility] MED & PEDS [address] [place] [address] Jailyn Ojeda MD [address] [place] [address] documented as of this encounter Visit Diagnoses Diagnosis Hypercholesterolemia Pure hypercholesterolemia documented in this encounter Care Teams Mat Inspector Relationship Specialty Start Date End Date Jailyn Ojeda MD [address] [place] [address] PCP - General Internal Medicine 06/26/13 documented as of this encounter
--- OUTSIDE RECORDS SUMMARY | 2025-04-04 17:14 | XMS_ITS | Encounter Summary ---
Author Organization [employer] Address [address] [place] [address] Care Team Providers Care Complaint Supervisor Name Role Phone Jailyn Ojeda MD Primary Care Provider [phone]- [phone] Reason for Visit * Reason Comments Med Refill Encounter Details Date Type Department Care Team (Late Contact Info) Description 06/13/2023 Refill [facility] MED & PEDS [address] [place] [address] Jailyn Ojeda MD [address] [place] [address] Social History Tobacco Use Types Packs/Day Years [...] Encounters Date Type Department Care Team (Late Contact Info) Description 05/19/2025 3:15 PM EST Office Visit [facility] CHC MED & PEDS [address] [place] [address] Jailyn Ojeda MD [address] [place], [place] [phone] documented as of this encounter Visit Diagnoses Not on filedocumented in this encounter Care Teams Complaint Supervisor Relationship Specialty Start Date End Date Jailyn Ojeda MD [address] [place] [address] PCP - General Internal Medicine 06/26/13 documented as of this encounter
--- OUTSIDE RECORDS SUMMARY | 2025-04-04 17:14 | XMS_ITS | Encounter Summary ---
Author Organization [employer] Address 75 [facility] 7 [place] [address] Care Team Providers Care Engineering Program Analyst Name Role Phone Jailyn Ojeda MD Primary Care Provider +1 [phone] Encounter Details Date Type Department Care Team ([facility] st Contact Info) Description 04/15/2024 Orders Only [facility] CHC MED & PEDS [address] [place] [address] Jailyn Ojeda MD [address] [place] [address] Transaminitis (Primary Dx); Hypercholesterolemia; Macrocytosis; Macrocytosis without [...] drinking? 5 or 6 04/15/2024 2:43 PM PAKOT Henny Ojeda MD Q3: How often do you have six or more drinks on one occasion? Daily or almost daily 04/15/2024 2:43 PM Jailyn Jj MD documented as of this encounter Plan of Treatment Upcoming Encounters Date Type Department Care Team (Late st Contact Info) Description 05/19/2025 3:15 PM EST Office Visit [facility] CHC MED & PEDS [address] [place] [address] Jailyn Ojeda MD [address] [place], [place] [phone] documented as of this encounter Procedures Procedure [...] AM EST Narrative 06/11/2024 6:08 AM EST [place] [address] Ultrasound Report Signed Patient: Kike Rodriguez MR#: [id number] : 1955 Acct:[id number] Age/Sex: 68 / M ADM Date: 05/07/24 Loc: HO.US Attending Dr: Jailyn Ojeda MD Ordering Physician: Jailyn Ojeda MD Date of Service: 05/07/24 Procedure(s): US aorta Accession Number(s): [id number] cc: Jailyn Ojeda MD EXAMINATION: US RETROPERITONEAL [...] Am Stephen Radiol 2013;10 (10):789-794. (Available on [employer]) Electronically signed by: Oren Fernandez MD 06/11/2024 06:05 AM [facility] Dictated By: Oren Fernandez MD Signed By: <Electronically signed by Oren Fernandez MD in OV> 06/11/24 0605 DD/ 1146 TD/TT: 05/07/24 1200 Structural Engineer: Procedure Note Donotuseinterpreter, Image - 06/11/2024 [place] [address] Ultrasound Report Signed Patient: Loyda Rodriguez#: [id number] : 5Acct:[id number] Age/Sex: 68 / MADM Date: 05/07/24 Loc: HO.US Attending Dr: Jailyn Ojeda MD Ordering Physician: Jailyn Ojeda MD Date of Service: 05/07/24 Procedure(s): US aorta Accession Number(s): [id number] cc: Jailyn Ojeda MD EXAMINATION: US RETROPERITONEAL [...] Am Stephen Radiol 2013;10 (10):789-794. (Available on [employer]) Electronically signed by: Oren Fernandez MD 06/11/2024 06:05 AM EST Dictated By: Oren Fernandez MD Signed By: <Electronically signed by Oren Fernandez MD in OV> 06/11/24 0605 DD/ 1146 TD/TT: 05/07/24 1200 Structural Engineer: us Jailyn Ojeda MD IM US PROCEDURES Edited Re sult - Final * Vitamin B1 (05/03/2024 3:40 PM EST) Vitamin B1 22 8 - 30 nmol/L [facility] Comment:Vitamin supplementat ion within 24 hours prior toblood draw may affect the accuracy of the results.This test was developed and its analytical performancecharacteristics have been determined by [employer] [place], [place]. It hasnot been cleared or approved by the U.S. Food and DrugAdministration. This assay has been validated pursuantto the CLIA regulations and is used for clinicalpurposes.THIS TEST WAS PERFORMED AT:[facility] [place] [address]GOSFEPONEYDA ARREDONDO MD,PHD Blood Venous blood specimen / Unknown 05/03/2024 3:40 PM EST 05/03/2024 5:52 PM EST us Jailyn Ojeda MD LAB BLOOD ORDERABLES Final Result [facility] [address] [place] [address] [phone] * Vitamin B12/Folate, Serum Panel (05/03/2024 3:40 PM EST) Vitamin B12 650 200 - 900 pg/mL [facility] Comment:NORMAL 200-900 PG/ML INDETERMINATE 160-199 PG/ML DEFICIENT < 160 PG/ML Folate 15.2 > or = 4.0 ng/mL [facility] Comment:Reference Values:> o r = [...] ORDERABLES Final Result [facility] [address] [place] [address] [phone] documented in this encounter Visit Diagnoses Diagnosis Transaminitis- Primary Nonspecific elevation of levels of transaminase or lactic acid dehydrogenase (LDH) Hypercholesterolemia Pure hypercholesterolemia Macrocytosis Other specified diseases of blood and blood-forming organs Macrocytosis without anemia Other specified diseases of blood and blood-forming organs documented in this encounter Care Teams Engineering Program Analyst Relationship Specialty Start Date End Date Jailyn Ojeda MD [address] [place] [address] PCP - General Internal Medicine 06/26/13 documented as of this encounter
[2025-04-04 17:57] LABS: MANUAL DIFF FLAG NO
[2025-04-04 18:36] LABS: Hematocrit 37.9 % (42.0-52.0); Hemoglobin 13.2 g/dl (14.0-18.0); Imm Gran Abs Auto 0.09 X10*3/uL (0.00-0.03); Imm Gran Pct Auto 1.4 % (0.0-0.4); Lymphocytes Absolute Auto 1.8 X10*3/uL (1.2-4.9); Mean Corpuscular HGB Conc 34.8 g/dl (31.0-36.0); Mean Corpuscular Hemoglobin 35.8 pg (27.0-33.0); Mean Corpuscular Volume 102.7 fL (80.0-98.0); NRBC Abs Auto 0.000 X10*3/uL (0.0-0.012); NRBC Pct Auto 0.0 /100WBC (0.0-0.2); Platelet Count 160 X10*3/uL (160-400); Red Blood Count 3.69 X10*6/uL (4.60-5.80); White Blood Count 6.4 X10*3/uL (4.8-10.8)
[2025-04-04 18:43] LABS: HDL Cholesterol 54 mg/dL (>40)
[2025-04-04 18:44] LABS: Alanine Aminotransferase 38 U/L (0-40); Albumin Level 4.6 g/dL (3.5-5.0); Alkaline Phosphatase 100 U/L (39-117); Anion Gap 16 (12-20); Aspartate Amino Transferase 63 U/L (5-37); Blood Urea Nitrogen 11 mg/dL (9-16); Calcium 10.5 mg/dL (8.4-10.2); Carbon Dioxide 23 mmol/L (22-29); Chloride 107 mmol/L (96-108); Cholesterol 161 mg/dL (<200); Estimated Glomerular Filt Rate > 60; Potassium 4.0 mmol/L (3.3-5.1); Sodium 142 mmol/L (135-145); Total Protein 7.4 g/dL (6.5-8.0); Triglycerides 143 mg/dL (<150)
[2025-04-04 19:03] LABS: Folate 11.1 ng/mL (> or = 4.0); Vitamin B12 564 pg/mL (200-900)
[2025-04-04 19:04] LABS: Magnesium 1.2 mg/dL (1.6-2.6)
== END 2025-04-04 14:44 | disposition home or self-care (01) ==
LOC: HO.CHCLDS 14:43
PROVIDERS: Visit Provider Internal Medicine
DX: R00.2 Palpitations (principal); E55.9 Vitamin D deficiency, unspecified; F10.20 Alcohol dependence, uncomplicated; E78.00 Pure hypercholesterolemia, unspecified
CPT/HCPCS: 36415; 80053; 80061; 82306; 82607; 82746; 83735; 84443; 85025

== ENCOUNTER 2025-04-11 15:27 | Outpatient (REF) | payer MEDICARE, MEDICAID, SELFPAY ==
--- OUTSIDE RECORDS SUMMARY | 2025-04-11 16:56 | XMS_ITS | Encounter Summary ---
Author Organization [employer] Address 75 [facility] 7 [place] [address] Care Team Providers Care Loan Processing Supervisor Name Role Phone Jailyn Ojeda MD Primary Care Provider [phone] [phone] Reason for Visit * Reason Onset Date Comments Nurse Triage 02/07/2025 Encounter Details Date Type Department Care Team ([facility] st Contact Info) Description 02/07/2025 Telephone [facility] MEDICINE [address] [place] [address] Jailyn Ojeda MD [address] [place], [place] [phone] Nurse Triage Social History Tobacco Use Types [...] Description 05/19/2025 3:15 PM EST Office Visit [facility] CHC MED & PEDS [address] [place] [address] Jailyn Ojeda MD [address] [place] [address] documented as of this encounter Visit Diagnoses Not on filedocumented in this encounter Care Teams Loan Processing Supervisor Relationship Specialty Start Date End Date Jailyn Ojeda MD [address] [place] [address] PCP - General Internal Medicine 06/26/13 documented as of this encounter
--- OUTSIDE RECORDS SUMMARY | 2025-04-11 16:56 | XMS_ITS | Encounter Summary ---
Author Organization [employer] Address [address] [place] [address] Care Team Providers Care Building Carpenter Name Role Phone Jailyn Ojeda MD Primary Care Provider [phone]- [phone] Reason for Visit * Reason Comments Med Refill Encounter Details Date Type Department Care Team (Late Contact Info) Description 06/13/2023 Refill [facility] MED & PEDS [address] [place] [address] Jailyn Ojeda MD [address] [place] [address] Social History Tobacco Use Types Packs/Day Years [...] Description 05/19/2025 3:15 PM EST Office Visit [facility] CHC MED & PEDS [address] [place] [address] Jailyn Ojeda MD [address] [place], [place] [phone] documented as of this encounter Visit Diagnoses Not on filedocumented in this encounter Care Teams Building Carpenter Relationship Specialty Start Date End Date Jailyn Ojeda MD [address] [place] [address] PCP - General Internal Medicine 06/26/13 documented as of this encounter
--- OUTSIDE RECORDS SUMMARY | 2025-04-11 16:56 | XMS_ITS | Encounter Summary ---
Author Organization [employer] Address 75 [facility] 7 [place] [address] Care Team Providers Care Reversing Mill Roller Name Role Phone Jailyn Ojeda MD Primary Care Provider [phone] [phone] Reason for Visit * Reason Comments Med Refill Encounter Details Date Type Department Care Team ([facility] Contact Info) Description 01/02/2025 Refill [facility] CHC MED & PEDS [address] [place], [place] [phone] Jailyn Ojeda MD [address] [place] [address] Hypercholesterolemia Social History Tobacco Use Types Packs/Day [...] Upcoming Encounters Date Type Department Care Team ([facility] st Contact Info) Description 05/19/2025 3:15 PM EST Office Visit [facility] MED & PEDS [address] [place] [address] Jailyn Ojeda MD [address] [place] [address] documented as of this encounter Visit Diagnoses Diagnosis Hypercholesterolemia Pure hypercholesterolemia documented in this encounter Care Teams Reversing Mill Roller Relationship Specialty Start Date End Date Jailyn Ojeda MD [address] [place] [address] PCP - General Internal Medicine 06/26/13 documented as of this encounter
--- OUTSIDE RECORDS SUMMARY | 2025-04-11 16:56 | XMS_ITS | Encounter Summary ---
Author Organization [employer] Address 75 [facility] 7t [place] [address] Care Team Providers Care Director Of Litigation Name Role Phone Jailyn Ojeda MD Primary Care Provider [phone] Reason for Visit * Reason Onset Date Comments Results 04/07/2025 Encounter Details Date Type Department Care Team (Latest Contact Info) Description 04/07/2025 Results Follow-Up [facility] [address] [place] [address] Abby Sanchez RN [address] [place] [address] CBC auto differential, Comprehensive Metabolic Panel, Lipid Panel, Standard, Additional followed-up results: 4 Social History Tobacco Use Types Packs/Day Years [...] encounter Miscellaneous Notes * Telephone Encounter - Abby Sanchez RN - 04/07/2025 10:00 AM EDT TC placed to pt and the message below was discussed, pt states he started the Magnesium 2 days ago and will come to the lab Monday or to have labs drawn. Patient had no further questions at this time and is in agreement with plan of care ----- Message from Jailyn Ojeda MD sent at 04/06/2025 7:45 PM EDT ----- Please call. Labs reviewed: 1) low magnesium. Patient needs to start the magnesium supplementation Prescribed by Dr Garcia. 2) mildly elevated calcium level. Patient needs to keep himself very well- hydrated. He will need toget the blood test repeated in 1 week also. 3) elevated AST. It is recommended to abstain from alcohol use. I will also order a workup. 4) macrocytic anemia. Could be related to alcohol use versus vitamin B12 or folic acid deficiency. We will order vitamin B12 and folic acid level ----- Message ----- From: Interface, Lab Results In Sent: 04/04/2025 6:37 PM EDT To: Jailyn Ojeda MD documented in this encounter Plan of Treatment Upcoming Encounters Date Type Department Care Team (Late st Contact Info) Description 05/19/2025 3:15 PM EST Office Visit [facility] MED & PEDS [address] [place] [address] Jailyn Ojeda MD [address] [place] [address] documented as of this encounter Visit Diagnoses Not on filedocumented in this encounter Additional Health Concerns Assessment Noted Time PHQ-9 Depression Total Score: 0 04/04/20 25 2:12 PM EDT documented as of this encounter Care Teams Director Of Litigation Relationship Specialty Start Date End Date Jailyn Ojeda MD [address] [place] [address] PCP - General Internal Medicine 06/26/13 documented as of this encounter
--- OUTSIDE RECORDS SUMMARY | 2025-04-11 16:56 | XMS_ITS | Encounter Summary ---
Author Organization [employer] Address 75 [facility] 7 [place] [address] Care Team Providers Care Stave Bolt Equalizer Name Role Phone Jailyn Ojeda MD Primary Care Provider [phone] Encounter Details Date Type Department Care Team ([facility] st Contact Info) Description 04/04/2025 Telephone [facility] MEDICINE [address] [place], [place] [phone] Henny Garcia MD [address] [place] [address] Social History Tobacco Use Types Packs/Day Years [...] as of this encounter Progress Notes * Henny Garcia MD - 04/04/2025 7:18 PM EDT TC from Joshua at [facility] lab (via answering service) reported Mg 1.2. I called patient who denied CP,parestesias , SOB, and pain, fatigue or muscle cramps. AP/ Rx MgOx 400mg bid sent to pharmacy. Patient will repeat Mg levels in 5-6d. He agreed w POC. documented in this encounter Plan of Treatment Upcoming Encounters Date Type Department Care Team (Late st Contact Info) Description 05/19/2025 3:15 PM EST Office Visit [facility] CHC MED & PEDS [address] [place] [address] Jailyn Ojeda MD [address] [place] [address] Scheduled Orders Name Type Priority Associated Diagnoses Orde r Schedule Magnesium Lab Routine Hypomagnesemia Expected: 04/04/2025, Expires: 04/04/2026 documented as of this encounter Visit Diagnoses Diagnosis Hypomagnesemia- Primary Disorders of magnesium metabolism documented in this encounter Additional Health Concerns Assessment Noted Time PHQ-9 Depression Total Score: 0 04/04/20 25 2:12 PM EDT documented as of this encounter Care Teams Stave Bolt Equalizer Relationship Specialty Start Date End Date Jailyn Ojeda MD [address] [place] [address] PCP - General Internal Medicine 06/26/13 documented as of this encounter
--- OUTSIDE RECORDS SUMMARY | 2025-04-11 16:56 | XMS_ITS | Encounter Summary ---
Author Organization [employer] Address [address] [place] [address] Care Team Providers Care Bead Wire Insulator Name Role Phone Jailyn Ojeda MD Primary Care Provider [phone] [phone] Reason for Referral * Imaging (Routine) - Authorized Specialty Diagnoses / Procedures Referred By Contac t Referred To Contact Radiology Diagnoses Transaminitis Procedures US Abdomen Comp w elastography Jailyn Ojeda MD [address] [place] [address] Phone: tel: fax: [address] Phone: tel: fax: Referral ID Status Reason Start Date Expiration Date V isits Requested Visits Authorized [id number] Authorized 04/10/2025 04/10/2026 1 1 Encounter Details Date Type Department Care Team (Late st Contact Info) Description 04/06/2025 Orders Only [facility] CHC MED & PEDS [address] [place] [address] Jailyn Ojeda MD [address] [place], [place] [phone] Transaminitis (Primary Dx) Social History Tobacco Use Types Packs/Day Years [...] Description 05/19/2025 3:15 PM EST Office Visit [facility] MED & PEDS [address] [place] [address] Jailyn Ojeda MD [address] [place] [address] Scheduled Orders Name Type Priority Associated Diagnoses Orde r Schedule US Abdomen Comp w elastography Imaging Routine Transaminitis Expected: 04/10/2025 (Approximate), Expires: 04/06/2026 Smooth Muscle Antibody with Reflex to Titer Lab Routine Transaminitis Expected: 04/10/2025 (Approximate), Expires: 04/06/2026 Immunoglobulins, Quantitative, IgA, IgG, IgM Lab Routine Transaminitis Expected: 04/10/2025 (Approximate), Expires: 04/06/2026 Ferritin Lab Routine Transaminitis Expected: 04/10/2025 (Approximate), Expires: 04/06/2026 Iron And Total Iron Binding Capacity Lab Routine Transaminitis Expected: 04/10/2025 (Approximate), Expires: 04/06/2026 Alpha 1 Antitrypsin Lab Routine Transaminitis Expected: 04/10/2025 (Approximate), Expires: 04/06/2026 Vitamin B12/Folate, Serum Panel Lab Routine Transaminitis Expected: 04/10/2025 (Approximate), Expires: 04/06/2026 documented as of this encounter Visit Diagnoses Diagnosis Transaminitis- Primary Nonspecific elevation of levels of transaminase or lactic acid dehydrogenase (LDH) documented in this encounter Additional Health Concerns Assessment Noted Time PHQ-9 Depression Total Score: 0 04/04/20 25 2:12 PM EDT documented as of this encounter Care Teams Bead Wire Insulator Relationship Specialty Start Date End Date Jailyn Ojeda MD [address] [place] [address] PCP - General Internal Medicine 06/26/13 documented as of this encounter
--- OUTSIDE RECORDS SUMMARY | 2025-04-11 16:56 | XMS_ITS | Clinical Summary ---
Author Organization [employer] Address [address] [facility] 7t [place] [address] Care Team Providers Care Card Cutter Name Role Phone Jailyn Ojeda MD Primary Care Provider Allergies No known active allergies Medications cholecalciferol [...] day. 30 tablet 11 04/15/20 24 025 Discontinued magnesium oxide (Mag-Ox) 400 MG tablet Take 1 tablet (400 mg) by mouth 2 times daily for 4 days. 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/19/2012 Vitamin D deficiency 12/19/2012 Encounters Date Type Department Care Team Description 04/07/2025 Results Follow-Up [facility] [address] [place] [phone] Abby Sanchez RN CBC auto differential, Comprehensive Metabolic Panel, Lipid Panel, Standard, Additional followed-up results: 4 04/06/2025 Orders Only [facility] [address] [place] [address] Jailyn Ojeda MD Transaminitis (Primary Dx) 04/04/2025 2:00 PM EDT Office Visit [facility] [address] [place] [address] Jailyn Ojeda MD Annual physical exam (Primary Dx); Vitamin D deficiency; Transaminitis; Hypercholesterolemia; Smoker; Alcoholism ([facility]) ([facility]); Palpitations; Primary hypertension; Encounter for immunization 04/04/[address] [address] Henny Garcia MD 04/04/2025 Travel 04/03/2025 Telephone [facility] [address] [place] [address] Jailyn Ojeda MD Chart Prep 04/01/2025 Refill [facility] [address] [place] [address] Jailyn Ojeda MD Hypercholesterolemia 02/07/[address] [address] Jailyn Ojeda MD Nurse Triage 01/14/[address] [address] Jailyn Ojeda MD from Last 3 Months Immunizations Immunization Administration [...] Description 05/19/2025 3:15 PM EST Office Visit [facility] [address], [place] [phone] Jailny Ojeda MD [address] [place], [place] [phone] Health Maintenance Due Date Last Done Comments CT Colonography 1955 Colonoscopy 1955 FIT 1955 Sigmoidoscopy 1955 COVID-19 Vaccine ( season) 2025 04/01/2023, 06/03/2022, 04/15/2021, Additional history exists FOBT 04/30/2025 04/30/2024 Alcohol/Substance Use Screening 04/04/2026 04/04/2025 Depression Screening 04/04/2026 04/04/2025, 04/04/20 SDOH Screening 04/04/2026 04/04/2025 Tobacco Screening 04/04/2026 04/04/2025 Colorectal Cancer Screening 04/30/2027 FIT DNA/Cologuard 04/30/2027 04/30/2024 RSV Patients and Patients Aged 60 years or older (1 - 1-dose 75+ series) 2029 Lipid Panel 04/04/2030 04/04/2025, 04/15/2024 DTaP/Tdap/Td Vaccines (3 - Td or Tdap) [...] 12-LEAD Routine 04/04/2025 3:26 PM EDT Palpitations MAGNESIUM Routine 04/04/2025 2:45 PM EDT Vitamin D deficiency Alcoholism (CMS/HCC) (HCC) VITAMIN B12/FOLATE, SERUM PANEL Routine 04/04/2025 2:45 PM EDT Vitamin D deficiency Alcoholism (CMS/HCC) (HCC) VITAMIN D,25-OH,TOTAL,IA Routine 04/04/2025 2:45 PM EDT Vitamin D deficiency Alcoholism (CMS/HCC) (HCC) TSH W/REFLEX TO FT4 Routine 04/04/2025 2 :45 PM EDT Palpitations LIPID PANEL, STANDARD Routine 04/04/2025 2:45 PM EDT Hypercholesterolem ia COMPREHENSIVE METABOLIC PANEL Routine 04/04/2025 2:45 PM EDT Palpitations CBC WITH AUTO DIFFERENTIAL Routine 04/04/2025 2:45 PM EDT Palpitations LAB COLOGUARD COLON CANCER SCREEN Routine 04/30/2024 12:10 PM EST Screening for colon cancer Transaminitis ZZZ HISTORICAL HEPATITIS C AB W/REFL TO HCV RNA, QN, PCR Routine 07/06/2021 12:06 PM EST from Last 3 Months or Most Recently Relevant to Health Maintenance Results * ECG 12 lead (04/04/2025 3:26 PM EDT) Jailyn Neil MD - 04/04/2025 3:26 PM EDT Heart rate 72 bpm. [place] -30 degrees. Horizontal axis. No sign of left atrial enlargement or right atrial enlargement. No sign of hypertrophy. Sinus rhythm. Abnormal EKG. us Jailyn Ojeda MD ECG ORDERABLES Final Resul t * Vitamin D, 25-Hydroxy, Total, Immunoassay (04/04/2025 2:45 PM EDT) Vitamin D 25-OH Total 68.4 >30 ng/mL [facility] Comment: Health Based Reference Values*< 20 ng/mL Gtvfviinj92-24 ng/mL Insufficient> 30 ng/mL Sufficient*Luna TIMMONS. N Engl J Med. 2007;357:266-280There is no well-established upper level of normal vitamin Dlevels. Some laboratories use 50 ng/mL as an upper limit ofnormal. However, toxicity is patient-dependent and may occurat any level. Careful correlation with the patient'spresentation is necessary and, if there is concern forvitamin D toxicity, treatment should be consideredirrespective of the serum level.Care must be taken in interpreting Vitamin D results fromdifferent laboratories and methodologies. Published datademonstrated that results from patients undergoinghemodialysis may show a negative bias when tested withvarious automated 25-OH vitamin D assays when compared toLC-MS/MS.When testing samples from patients whose predominant form ofVitamin D is Vitamin D2, such as patients receiving VitaminD2 supplementation, results that are subtherapeutic shouldbe confirmed with another method such as LC-MS/MS. Blood Venous blood specimen / Unknown 04/04/2025 2:45 PM EDT 04/04/2025 5:54 PM EDT Jailyn Ojeda MD LAB BLOOD ORDERABLES Final Result [facility] [address] [place] [phone] * Vitamin B12/Folate, Serum Panel (04/04/2025 2:45 PM EDT) Pathologist [facility] Vitamin B12 564 200 - 900 pg/mL [facility] Comment:NORMAL 200-900 PG/ML INDETERMINATE 160-199 PG/ML DEFICIENT < 160 PG/ML Folate 11.1 > or = 4.0 ng/mL [facility] Comment:Reference Values:> o r = 4.0 ng/mL< 4.0 ng/mL suggests folate deficiency Methotrexate, aminopterin and folinic acid(leucovorin) are chemotherapeutic agents whose molecularstructures are similar to folate; therefore, the Architectfolate assay cannot be used for patients using these drugs. Blood Venous blood specimen / Unknown 04/04/2025 2:45 PM EDT 04/04/2025 5:54 PM EDT us Jailyn Ojeda MD LAB BLOOD ORDERABLES Final Result Performing Organization Address [facility] Co de Phone Number [facility] [address] [place] [phone] * TSH with Reflex to Free T4 (04/04/2025 2:45 PM EDT) [facility] TSH reflex Free T4 1.21 0.32 - 4.0 uIU/mL [facility] Blood Venous blood specimen / Unknown 04/04/2025 2:45 PM EDT 04/04/2025 5:54 PM EDT us Jailyn Ojeda MD LAB BLOOD ORDERABLES Final Result Performing Organization Address [facility] Co de Phone Number [facility] [address] [place] [phone] * (ABNORMAL) CBC auto differential (04/04/2025 2:45 PM EDT) [facility] White Blood Count 6.4 4.8 - 10.8 X10*3/uL [facility] Red Blood Count 3.69(L) 4.60 - 5.80 X10*6/uL [facility] Hemoglobin 13.2(L) 14.0 - 18.0 g/dl [facility] Hematocrit 37.9(L) 42.0 - 52.0 % [facility] Mean Corpuscular Volume 102.7(H) 80.0 - 98.0 fL [facility] Mean Corpuscular Hemoglobin 35.8(H) 27.0 - 33.0 pg [facility] Mean Corpuscular HGB Conc 34.8 31.0 - 36.0 g/dl [facility] Red Cell Distribution Width 12.0 11.0 - 16.0 % [facility] Platelet Count 160 160 - 400 X10*3/uL [facility] Mean Platelet Volume 9.8 9.4 - 12.4 fL [facility] Neutrophils Percent Auto 60.5 45 - 73 % [facility] Imm Gran Pct Auto 1.4(H) 0.0 - 0.4 % [facility] Lymphocytes Percent Auto 27.9 20 - 40 % [facility] Monocytes Percent Auto 6.9 2 - 11 % [facility] Eosinophils Percent Auto 2.4 0 - 4 % [facility] Basophils Percent Auto 0.9 0 - 2 % [facility] NRBC Pct Auto 0.0 0.0 - 0.2 /100WBC [facility] Neutrophils Absolute Auto 3.9 2.0 - 8.3 x10*3/uL [facility] Imm Gran Abs Auto 0.09(H) 0.00 - 0.03 X10*3/uL [facility] Lymphocytes Absolute Auto 1.8 1.2 - 4.9 X10*3/uL [facility] Monocytes Absolute Auto 0.4 0.1 - 1.2 X10*3/uL [facility] Eosinophils Absolute Auto 0.2 0.0 - 0.4 X10*3/uL [facility] Basophils Absolute Auto 0.1 0.0 - 0.2 X10*3/uL [facility] NRBC Abs Auto 0.000 0.0 - 0.012 X10*3/uL [facility] Blood Venous blood specimen / Unknown 04/04/2025 2:45 PM EDT 04/04/2025 5:54 PM EDT us Jailyn Ojeda MD LAB BLOOD ORDERABLES Final Result [facility] [address] [place] [phone] * (ABNORMAL) Magnesium (04/04/2025 2:45 PM EDT) Magnesium 1.2(LL) 1.6 - 2.6 mg/dL [facility] Comment:Critical value for t est(s):MG Results called to and readback by: HERMAN Person calling:KUSF Date:04-04-25 Time:1901 Blood Venous blood specimen / Unknown 04/04/2025 2:45 PM EDT 04/04/2025 5:54 PM EDT us Jailyn Ojeda MD LAB BLOOD ORDERABLES Final Result [facility] [address] [place] [phone] * Lipid Panel, Standard (04/04/2025 2:45 PM EDT) Triglycerides 143 <150 mg/dL [facility] Comment:Desirable Triglyceri de: less than 150 mg/dLBorderline High Triglyceride 150-199 mg/dLHigh Triglyceride: 200-499 mg/dLVery High Triglyceride: greater than or equal to 5OO mg/dL Cholesterol 161 <200 mg/dL [facility] Comment:Desirable Cholestero l: less than 200 mg/dLBorderline High Cholesterol: 200-239 mg/dLHigh Cholesterol: greater than 239 mg/dL LDL Cholesterol Calculated 79 <100 mg/dL [facility] Comment:Desirable LDL: less than 100 mg/dLNear Optimal/Above Optimal LDL: 110- 129 mg/dLBorderline High LDL: 130-159 mg/dLHigh LDL: 160-189 mg/dLVery High LDL: greater than or equal to 190 mg/dL HDL Cholesterol 54 >40 mg/dL [facility] Comment:Desirable HDL: great er than 40 mg/dL Note: This HDL assay may give artificially low results in patients with liver disease. Blood Venous blood specimen / Unknown 04/04/2025 2:45 PM EDT 04/04/2025 5:54 PM EDT us Jailyn Ojeda MD LAB BLOOD ORDERABLES Final Result [facility] [address] [place] [phone] * (ABNORMAL) Comprehensive Metabolic Panel (04/04/2025 2:45 PM EDT) Sodium 142 135 - 145 mmol/L [facility] Potassium 4.0 3.3 - 5.1 mmol/L [facility] Chloride 107 96 - 108 mmol/L [facility] Carbon Dioxide 23 22 - 29 mmol/L [facility] Anion Gap 16 12 - 20 [facility] Urea Nitrogen (BUN) 11 9 - 16 mg/dL [facility] Creatinine, Serum 0.74 0.5 - 1.4 mg/dL [facility] Estimated Glomerular Filt Rate >60 [facility] Comment:Chronic Kidney Disea se: Estimated GFR < 60 mL/min/1.84i8Bylakp Kidney Disease: Estimated GFR < 15 mL/min/1.73m2 Glucose 95 60 - 115 mg/dL [facility] Calcium 10.5(H) 8.4 - 10.2 mg/dL [facility] Bilirubin, Total 0.4 0.0 - 1.0 mg/dL [facility] Aspartate Amino Transferase 63(H) 5 - 37 U/L [facility] Alanine Aminotransferase 38 0 - 40 U/L [facility] Total Protein 7.4 6.5 - 8.0 g/dL [facility] Albumin Level 4.6 3.5 - 5.0 g/dL [facility] Alkaline Phosphatase 100 39 - 117 U/L [facility] Blood Venous blood specimen / Unknown 04/04/2025 2:45 PM EDT 04/04/2025 5:54 PM EDT us Jailyn Ojeda MD LAB BLOOD ORDERABLES Final Result [facility] [address] [place] [phone] * (ABNORMAL) Cologuard?? colon cancer screening (04/30/2024 12:10 PM EST) Cologuard Result Positive( A) Negative 05/08/2024 2:17 AM EST [facility] (CLIA #:[id number]) Comment: POSITIVE TEST RESULT. A positive Cologuard [...] (Inocencia Lerner al, N Engl J Med 2014;370(14):8801-1863.) Cologuard may produce a false negative or false positive result (no colorectal cancer or precancerous polyp present at colonoscopy follow up). A negative Cologuard test result does not guarantee the absence of CRC or advanced adenoma (pre-cancer). The current Cologuard screening interval is every 3 years. ([place] [employer] and U.S. Multi-Society Task Force). Cologuard performance data in a 10,000 patient pivotal study using colonoscopy as the reference method can be accessed at the following location: www.Motility [employer].com/results. Additional description of the Cologuard test process, warnings and precautions can be found at www.colPivotal Systemsrd.com. Stool specimen (specimen) 04/30/2024 12:10 PM EST 05/01/2024 1:15 PM EST us Jailyn Ojeda MD LAB MOLECULAR DIAGNOSTICS O RDERABLES Final Result [facility] (CLIA #:[id number]) [place] [address], * HEPATITIS C AB W/REFL TO HCV RNA, QN, PCR (07/06/2021 12:06 PM EST) HEPATITIS C ANTIBODY NON-REACT [facility] NON-[facility]ACT [facility] INDEX 0.05 <1.00 [facility] Comment: HCV antibody was non-reactive. There is no laboratory evidence of HCV infection. In most cases, no further action is required. However, if recent HCV exposure is suspected, a test for HCV RNA (test code 25551) is suggested. For additional information please refer to http://education.Inspro.Swift Shift/faq/VVB54b4 (This link is being provided for informational/ educational purposes only.) 07/06/2021 12:0 6 PM EST us Trina Luevano MD HISTORICAL/NON ORDERABLE LABS Final Result Performing Organization Address City/[facility]/ZIP Co de Phone Number [facility] [address] from Last 3 Months or Most Recently Relevant to Health Maintenance Insurance MEDICARE [facility] STANDARD Care Teams Card Cutter Relationship Specialty Start Date End Date Jailyn Ojeda MD [address] [place] [address] GRACE Hernandez [phone] PCP - General Internal Medicine 06/26/13
--- OUTSIDE RECORDS SUMMARY | 2025-04-11 16:56 | XMS_ITS | Encounter Summary ---
Author Organization [email or web address] Address [address] [facility] 7 [place] [address] Care Team Providers Care Communications Superintendent Name Role Phone Jailyn Ojeda MD Primary Care Provider [phone] Encounter Details Date Type Department Care Team ([facility] st Contact Info) Description 04/15/[address] [facility] [address] [place] [address] Jailyn Ojeda MD [address] [place] [address] Transaminitis (Primary Dx); Hypercholesterolemia; Macrocytosis; Macrocytosis without [...] Description 05/19/2025 3:15 PM EST Office Visit [facility] [address] [place] [address] Jailyn Ojeda MD [address] [place], [place] [phone] documented as of this encounter Procedures Procedure [...] AM EST Narrative 06/11/2024 6:08 AM EST [place] [address] Ultrasound Report Signed Patient: Kike Rodriguez MR#: [id number] : 1955 Acct:[id number] Age/Sex: 68 / M ADM Date: 05/07/24 Loc: HO.US Attending Dr: Jailyn Ojeda MD Ordering Physician: Jailyn Ojeda MD Date of Service: 05/07/24 Procedure(s): US aorta Accession Number(s): [id number] cc: Jailyn Ojeda MD EXAMINATION: US RETROPERITONEAL [...] Am Stephen Radiol 2013;10 (10):789-794. (Available on Posto7) Electronically signed by: Oren Fernandez MD 06/11/2024 06:[address] [facility] Dictated By: Oren Fernandez MD Signed By: <Electronically signed by Oren Fernandez MD in OV> 06/11/24 0605 DD/ 1146 TD/TT: 05/07/24 1200 [place]: Procedure Note Donotuseinterpreter, Image - 06/11/2024 [place] [address] Ultrasound Report Signed Patient: Loyda Rodriguez#: [id number] : 5Acct:[id number] Age/Sex: 68 / MADM Date: 05/07/24 Loc: HO.US Attending Dr: Jailyn Ojeda MD Ordering Physician: Jailyn Ojeda MD Date of Service: 05/07/24 Procedure(s): US aorta Accession Number(s): [id number] cc: Jailyn Ojeda MD EXAMINATION: US RETROPERITONEAL [...] Am Stephen Radiol 2013;10 (10):789-794. (Available on Posto7) Electronically signed by: Oren Fernandez MD 06/11/2024 06:05 AM EST Dictated By: Oren Fernandez MD Signed By: <Electronically signed by Oren Fernandez MD in OV> 06/11/24 0605 DD/ 1146 TD/TT: 05/07/24 1200 [place]: us Jailyn Ojeda MD IM US PROCEDURES Edited Re sult - Final * Vitamin B1 (05/03/2024 3:40 PM EST) Vitamin B1 22 8 - 30 nmol/L [facility] Comment:Vitamin supplementat ion within 24 hours prior toblood draw may affect the accuracy of the results.This test was developed and its analytical performancecharacteristics have been determined by [employer] [place], [place]. It hasnot been cleared or approved by the U.S. Food and DrugAdministration. This assay has been validated pursuantto the CLIA regulations and is used for clinicalpurposes.THIS TEST WAS PERFORMED AT:[facility] [place] [address]GCSRHCUNEYDA ARREDONDO MD,PHD Blood Venous blood specimen / Unknown 05/03/2024 3:40 PM EST 05/03/2024 5:52 PM EST us Jailyn Ojeda MD LAB BLOOD ORDERABLES Final Result [facility] [address] [place] [address] [phone] * Vitamin B12/Folate, Serum Panel (05/03/2024 3:40 PM EST) Vitamin B12 650 200 - 900 pg/mL [facility] Comment:NORMAL 200-900 PG/ML INDETERMINATE 160-199 PG/ML DEFICIENT < 160 PG/ML Folate 15.2 > or = 4.0 ng/mL [facility] Comment:Reference Values:> o r = [...] Result [facility] [address] [place] [phone] documented in this encounter Visit Diagnoses Diagnosis Transaminitis- Primary Nonspecific elevation of levels of transaminase or lactic acid dehydrogenase (LDH) Hypercholesterolemia Pure hypercholesterolemia Macrocytosis Other specified diseases of blood and blood-forming organs Macrocytosis without anemia Other specified diseases of blood and blood-forming organs documented in this encounter Care Teams Communications Superintendent Relationship Specialty Start Date End Date Jailyn Ojeda MD [address] [place] [phone] PCP - General Internal Medicine 06/26/13 documented as of this encounter
--- OUTSIDE RECORDS SUMMARY | 2025-04-11 16:56 | XMS_ITS | Encounter Summary ---
Author Organization [employer] Address [address] [place] [address] Care Team Providers Care Network Engineer Name Role Phone Jailyn Ojeda MD Primary Care Provider [phone] Reason for Referral * Consultation (Routine) - Closed Specialty Diagnoses / Procedures Referred By Contac t Referred To Contact Gastroenterology Diagnoses Positive colorectal cancer screening using Cologuard test Jailyn Ojeda MD [address] [place] [phone] Phone: tel: fax: Soraida Cortes MD [address] [place] [phone] Phone: tel: fax: Referral ID Status Reason Start Date Expiration Date V isits Requested Visits Authorized [id number] Closed Specialty Services Required 05/08/2024 05/08/2025 1 1 Encounter Details Date Type Department Care Team (Late st Contact Info) Description 05/08/2024 Orders Only [facility] [address] [place], [place] [phone] Jailyn Ojeda MD [address] [place] [phone] Transaminitis (Primary Dx); Positive colorectal cancer screening [...] Upcoming Encounters Date Type Department Care Team ([facility] Contact Info) Description 05/19/2025 3:15 PM EST Office Visit [facility] [address] [place] [address] Jailyn Ojeda MD [address] [place] [address] Scheduled Referrals Name Type Priority Associated Diagnoses Order Schedule Referral to Gastroenterology Outpatient Referral Routine Positive colorectal cancer screening using Cologuard test Expected: 05/08/2024 (Approximate), Expires: 05/08/2025 documented as of this encounter Visit Diagnoses Diagnosis Transaminitis- Primary Nonspecific elevation of levels of transaminase or lactic acid dehydrogenase (LDH) Positive colorectal cancer screening using Cologuard test documented in this encounter Care Teams Network Engineer Relationship Specialty Start Date End Date Jailyn Ojeda MD [address] [place] [phone] PCP - General Internal Medicine 06/26/13 documented as of this encounter
[2025-04-11 18:52] LABS: Iron 158 mcg/dL (45-160); Percent Iron Saturation 57 % (15-50); Total Iron Binding Capacity 278 mcg/dL (228-428); Unsaturated Iron Binding 120 ug/dL
[2025-04-11 19:12] LABS: Ferritin 1152 ng/mL (20-250)
[2025-04-11 19:16] LABS: Folate 12.4 ng/mL (> or = 4.0); Vitamin B12 534 pg/mL (200-900)
== END 2025-04-11 15:28 | disposition home or self-care (01) ==
LOC: HO.CHCLDS 15:27
PROVIDERS: Visit Provider Internal Medicine
DX: R74.01 Elevation of levels of liver transaminase levels (principal)
CPT/HCPCS: 36415; 82607; 82728; 82746; 82784; 83540

== ENCOUNTER 2025-04-16 13:05 | Outpatient (AMB) | payer MEDICARE, MEDICAID, SELFPAY ==
[2025-04-16 13:09] VITALS: BP 140/60; PULSE 79; O2SAT 96; BMI 25.3
--- NOTE | 2025-04-16 13:09 | MHC.OFFVIS ---
Vital Signs 04/16/25 13:09 Height 5 ft 7 in Weight 161 lb 4 oz BMI 25.3 BP 140/60 H Blood Pressure Location Rt brachial Position Sitting Pulse 79 Pulse Source Pulse Oximeter Pulse Oximetry (%) 96 Oxygen Delivery Method Room Air Intake Visit Reasons: COPD Allergies No Known Allergies Allergy (Unverified 04/16/25 13:11) HPI HPI COPD: Details: Kike is a pleasant 69 year old male, current 45 pack year smoker, with underlying moderate COPD, and HLD. At the last visit he reported suboptimal control with Breo 100 mcg, continued with dyspnea and cough, therefore Breo was increased to 200 mcg. He reports good control of symptoms on current regimen, denies dyspnea, wheezing or chest tightness. He reports occasional productive cough with clear sputum. He had his first LDCT 09/2024 through the lung screening program which revealed mild centrilobular emphysema, biapical pleural-parenchymal scarring and 2mm pulmonary nodule DEREK. Repeat LDCT will be scheduled in one year. He denies any visits to urgent care or hospitalizations related to respiratory distress since the last visit. Of note, patient has increased smoking now smoking approximately 25 cigarettes per day. He is interested in smoking however states he can not afford NRT at this time as its not covered by insurance. He also notes that insurance will no longer be covering Breo, and Advair is a covered alternative. ON LICENSE OF [facility] Medical History (Updated 02/24/25 @ 12:41 by Sayda Burroughs NP) Transaminitis Liver cyst Hepatic steatosis Hyperlipidemia Nicotine dependence, cigarettes, uncomplicated Surgical History (Reviewed 08/20/24 @ 14:06 by Gonzalo Martini [facility]) History of colonoscopy Social History (Updated 04/16/25 @ 13:11 by Mildred Puckett [facility]) Patient Tobacco Use Status: Current everyday Tobacco user Tobacco use type: Cigarette Cigarette Packs Per Day: 1.25 Cigarettes Per Day: 25 Years Smoked: (onset 19yo, 1ppd x 49yrs, 40pyh) Review of Systems Const Denies chills, Denies excessive sweating, Denies fever(s), Denies headache(s) and Denies night sweats Eyes Denies dry eyes, Denies irritation and Denies itchy eyes ENT Reports Normal hearing present, Denies headache(s), Denies nasal congestion, Denies nasal discharge, Denies post nasal drip and Denies sore throat Card Denies chest pain, Denies chest pain at rest, Denies chest pain with activity, Denies claudication, Denies leg edema, Denies dyspnea, Denies dyspnea on exertion, Denies orthopnea and Denies paroxysmal nocturnal dyspnea Resp Denies chest congestion, Denies excessive phlegm production, Denies pain on inspiration, Denies pain with cough, Denies dyspnea, Denies dyspnea on exertion, Denies stridor and Denies wheezing Musc Denies myalgias Neuro Reports Normal hearing present and Denies headache(s) Endo Denies excessive sweating Alex/Lymph Denies lymphadenopathy Aller/Immun Denies itchy eyes, Denies seasonal rhinorrhea and Denies wheezing Physical Exam Vital Signs: Last Vital Signs Pulse 79 04/16/25 13:09 BP 140/60 H 04/16/25 13:09 Pulse Ox 96 04/16/25 13:09 Oxygen Delivery Method Room Air 04/16/25 13:09 BMI result Body Mass Index 25.3 Const General: cooperative, healthy appearing, comfortable, no acute distress, well developed and alert Nutritional Appearance: obese Orientation/consciousness: patient oriented x3 Limitations: no limitations HEENT Head: Yes normal to inspection, Yes normocephalic and Yes atraumatic Ears: hearing grossly normal bilaterally and external ears normal Eyes General: appearance normal, both eyes and all related structures Eyelids: Yes eyelids normal Sclerae: sclerae normal EOM: EOMs intact bilaterally Neck Neck: Yes normal visual inspection and Yes no lymphadenopathy Lymphatic: no lymphadenopathy noted Chest Chest palpation & inspection: normal inspection of the chest Resp Effort & Inspection: normal respiratory effort, able to speak in complete sentences, no audible wheezes, no cough, no stridor, not tachypneic, no tripod positioning, no use of accessory muscles and prolonged expiratory phase Auscultation: wheezes Cardio Jugular venous distension: no JVD Rate: regular rate Rhythm: regular rhythm Skin Other: warm, dry General skin exam: no rashes or lesions noted Neuro General: patient oriented x3 Cranial nerves: Yes Normal hearing present Cognition (Neuro): normal cognition Gait exam (Neuro): Normal gait present Extrem General: Yes normal to inspection, Yes capillary refill normal, Yes no clubbing, cyanosis or edema and Yes no pedal edema Psych Appearance: grossly normal and well kempt Speech and movement: Normal speech and movement present and Clear speech present Affect: normal affect Attitude: cooperative Thought process: Normal thought process present Thought content: Normal thought content present Insight: Good insight present (Psych) Judgement: Good judgement present (Psych) Assessment & Plan Assessment & Plan (1) COPD (chronic obstructive pulmonary disease): Code(s): J44.9 - Chronic obstructive pulmonary disease, unspecified Category: Medical (2) Nicotine dependence, cigarettes, uncomplicated: Code(s): F17.210 - Nicotine dependence, cigarettes, uncomplicated Category: Medical (3) Pulmonary nodule: Code(s): R91.1 - Solitary pulmonary nodule Category: Medical Plan Patient currently with exacerbation, will send prednisone. Aware to call if symptoms do not improve. Recommended to continue Breo 200 mcg. Will need to adjust regimen due to insurance changes after the 1st of the year, patient will call when refills are needed. Will send Advair. LDCT revealed 2mm pulmonary nodule of DEREK, mild centrilobular emphysema and biapical pleural-parenchymal scarring, will have repeat LDCT next year. Smoking cessation reviewed, discussed NRT and encouraged use. All questions were answered and patient is in agreement of plan. Will follow up in 3 months or sooner if needed. Medications: New prednisone 40 mg (2 x 20 mg) PO DAILY 10 tabs 0RF Coding Level of Care Code Est Pt Level 4 (61282) Complex EM visit Add On G2211 Diagnoses COPD (chronic obstructive pulmonary disease) J44.9 Nicotine dependence, cigarettes, uncomplicated F17.210 Pulmonary nodule R91.1
--- OUTSIDE RECORDS SUMMARY | 2025-04-16 16:39 | XMS_ITS | Encounter Summary ---
Author Organization [employer] Address [address] [place] [address] Care Team Providers Care Tucking Machine Operator Name Role Phone Jailny Ojeda MD Primary Care Provider [phone] Reason for Referral * Imaging (Routine) - Authorized Specialty Diagnoses / Procedures Referred By Contac t Referred To Contact Radiology Diagnoses Transaminitis Procedures US Abdomen Comp w elastography Jailyn Ojeda MD [address] [place] [address] Phone: tel: fax: [address] Phone: tel: fax: Referral ID Status Reason Start Date Expiration Date V isits Requested Visits Authorized [id number] Authorized 04/10/2025 04/10/2026 1 1 Encounter Details Date Type Department Care Team (Late st Contact Info) Description 04/06/2025 Orders Only [facility] MED & PEDS [address] [place] [address] Jailyn Ojeda MD [address] [place], [place] [phone] Transaminitis (Primary Dx) Social History Tobacco Use Types Packs/Day Years Used Date Smoking Tobacco: Every Day Cigarettes Smokeless Tobacco: Never Comments:1 ppd x 49 years. Alcohol Use Standard Drinks/Week Comments Yes 6 (1 standard drink = 0.6 oz pur e alcohol) Alcohol Answer Date Recorded How often do you have a drink containing alcohol ? 1 04/04/2025 How many drinks containing a lcohol do you have on a typical day when you are drinking? 0 04/04/2025 How often do you have six or more drinks on one occasion? 0 04/04/2025 Depression Answer Date Recorded Patient Health Questionnaire-9 [...] Upcoming Encounters Date Type Department Care Team ([facility] Contact Info) Description 05/19/2025 3:15 PM EST Office Visit [facility] MED & PEDS [address] [place] [address] Jailyn Ojeda MD [address] [place] [phone] Scheduled Orders Name Type Priority Associated Diagnoses Orde r Schedule US Abdomen Comp w elastography Imaging Routine Transaminitis Expected: 04/10/2025 (Approximate), Expires: 04/06/2026 Smooth Muscle Antibody with Reflex to Titer Lab Routine Transaminitis Expected: 04/10/2025 (Approximate), Expires: 04/06/2026 Alpha 1 Antitrypsin Lab Routine Transaminitis Expected: 04/10/2025 (Approximate), Expires: 04/06/2026 documented as of this encounter Procedures Procedure Name Priority Date/Time Associated Diagnosis Comments VITAMIN B12/FOLATE, SERUM PANEL Routine 04/11/2025 3:29 PM EDT Transaminitis IRON AND TOTAL IRON BINDING CAPACITY Routine 04/11/2025 3:29 PM EDT Transaminitis IMMUNOGLOBULINS, QUANTITATIVE, IGA, IGG, IGM Routine 04/11/2025 3:29 PM EDT Transaminitis FERRITIN Routine 04/11/2025 3:29 PM EDT Transaminitis documented in this encounter Results * Vitamin B12/Folate, Serum Panel (04/11/2025 3:29 PM EDT) Vitamin B12 534 200 - 900 pg/mL [facility] Comment:NORMAL 200-900 PG/ML INDETERMINATE 160-199 PG/ML DEFICIENT < 160 PG/ML Folate 12.4 > or = 4.0 ng/mL [facility] Comment:Reference Values:> o r = 4.0 ng/mL< 4.0 ng/mL suggests folate deficiency Methotrexate, aminopterin and folinic acid(leucovorin) are chemotherapeutic agents whose molecularstructures are similar to folate; therefore, the Architectfolate assay cannot be used for patients using these drugs. Blood Venous blood specimen / Unknown 04/11/2025 3:29 PM EDT 04/11/2025 6:18 PM EDT us Jailyn Ojeda MD LAB BLOOD ORDERABLES Final Result Performing Organization Address [facility] Co de Phone Number [facility] [address] [place] [phone] * (ABNORMAL) Iron And Total Iron Binding Capacity (04/11/2025 3:29 PM EDT) [facility] Iron 158 45 - 160 mcg/dL [facility] Total Iron Binding Capacity 278 228 - 428 mcg/dL [facility] Percent Iron Saturation 57(H) 15 - 50 % [facility] Unsaturated Iron Binding 120 ug/dL [facility] Blood Venous blood specimen / Unknown 04/11/2025 3:29 PM EDT 04/11/2025 6:18 PM EDT us Jailyn Ojeda MD LAB BLOOD ORDERABLES Final Result Performing Organization Address [facility] Co de Phone Number [facility] [address] [place] [phone] * (ABNORMAL) Ferritin (04/11/2025 3:29 PM EDT) [facility] Ferritin 1,152(H) 20 - 250 ng/mL [facility] Blood Venous blood specimen / Unknown 04/11/2025 3:29 PM EDT 04/11/2025 6:18 PM EDT us Jailyn Ojeda MD LAB BLOOD ORDERABLES Final Result Performing Organization Address [facility] de Phone Number [facility] [address] [place] [phone] * (ABNORMAL) Immunoglobulins, Quantitative, IgA, IgG, IgM (04/11/2025 3:29 PM EDT) Pathologist [facility] IMMUNOGLOBULIN G 961 600 - 1540 mg/dL [facility] IMMUNOGLOBULIN A 421(A) 70 - 320 mg/dL [facility] Immunoglobulin M 81 50 - 300 mg/dL [facility] Comment:THIS TEST WAS PERFOR MED AT:[employer] [place] [phone] SOTO MD Blood Venous blood specimen / Unknown 04/11/2025 3:29 PM EDT 04/11/2025 6:18 PM EDT Jailyn Ojeda MD LAB BLOOD ORDERABLES Final Result [facility] [address] [place] [phone] documented in this encounter Visit Diagnoses Diagnosis Transaminitis- Primary Nonspecific elevation of levels of transaminase or lactic acid dehydrogenase (LDH) documented in this encounter Additional Health Concerns Assessment Noted Time PHQ-9 Depression Total Score: 0 04/04/20 25 2:12 PM EDT documented as of this encounter Care Teams Tucking Machine Operator Relationship Specialty Start Date End Date Jailyn Ojeda MD [address] [place] [phone] PCP - General Internal Medicine 06/26/13 documented as of this encounter
--- OUTSIDE RECORDS SUMMARY | 2025-04-16 16:39 | XMS_ITS | Encounter Summary ---
Author Organization [employer] Address [address] [facility] 7 [place] [address] Care Team Providers Care Forming Press Operator Name Role Phone Jailyn Ojeda MD Primary Care Provider [phone] Encounter Details Date Type Department Care Team ([facility] st Contact Info) Description 04/04/2025 Telephone [facility] MEDICINE [address] [place], [place] [phone] Henny Garcia MD [address] [place] [address] Social History Tobacco Use Types Packs/Day Years [...] 7:18 PM EDT TC from [facility] at [facility] lab (via answering service) reported Mg 1.2. [...] Description 05/19/2025 3:15 PM EST Office Visit [facility] CHC MED & PEDS [address] [place] [address] Jailyn Ojeda MD [address] [place] [address] Scheduled Orders Name Type Priority Associated Diagnoses Orde r Schedule Magnesium Lab Routine Hypomagnesemia Expected: 04/04/2025, Expires: 04/04/2026 documented as of this encounter Visit Diagnoses Diagnosis Hypomagnesemia- Primary Disorders of magnesium metabolism documented in this encounter Additional Health Concerns Assessment Noted Time PHQ-9 Depression Total Score: 0 04/04/20 25 2:12 PM EDT documented as of this encounter Care Teams Forming Press Operator Relationship Specialty Start Date End Date Jailyn Ojeda MD [address] [place] [phone] PCP - General Internal Medicine 06/26/13 documented as of this encounter
--- OUTSIDE RECORDS SUMMARY | 2025-04-16 16:39 | XMS_ITS | Encounter Summary ---
Author Organization [employer] Address [address] [facility] 7 [place] [address] Care Team Providers Care Lifestyle Consultant Name Role Phone Jailyn Ojeda MD Primary Care Provider [phone] Reason for Visit * Reason Onset Date Comments Nurse Triage 02/07/2025 Encounter Details Date Type Department Care Team ([facility] st Contact Info) Description 02/07/2025 Telephone [facility] MEDICINE [address] [place] [address] Jailyn Ojeda MD [address] [place], [place] [phone] Nurse Triage Social History Tobacco Use Types [...] Description 05/19/2025 3:15 PM EST Office Visit [facility] CHC MED & PEDS [address] [place] [address] Jailyn Ojeda MD [address] [place] [address] documented as of this encounter Visit Diagnoses Not on filedocumented in this encounter Care Teams Lifestyle Consultant Relationship Specialty Start Date End Date Jailyn Ojeda MD [address] [place] [address] PCP - General Internal Medicine 06/26/13 documented as of this encounter
--- OUTSIDE RECORDS SUMMARY | 2025-04-16 16:39 | XMS_ITS | Encounter Summary ---
Author Organization [employer] Address [address] [facility] 7 [place] [address] Care Team Providers Care Chlorine Operator Name Role Phone Jailyn Ojeda MD Primary Care Provider [phone] Encounter Details Date Type Department Care Team ([facility] st Contact Info) Description 04/15/2024 Orders Only [facility] CHC MED & PEDS [address] [place] [address] Jailyn Ojeda MD [address] [place] [address] Transaminitis (Primary Dx); Hypercholesterolemia; Macrocytosis; Macrocytosis without [...] Description 05/19/2025 3:15 PM EST Office Visit [facility] CHC MED & PEDS [address] [place] [address] Jailyn Ojeda MD [address] [place], [place] [phone] documented as of this encounter Procedures Procedure [...] AM EST Narrative 06/11/2024 6:08 AM EST [place] [address] Ultrasound Report Signed Patient: Kike Rodriguez MR#: [id number] : 1955 Acct:[id number] Age/Sex: 68 / M ADM Date: 05/07/24 Loc: HO.US Attending Dr: Jailyn Ojeda MD Ordering Physician: Jailyn Ojeda MD Date of Service: 05/07/24 Procedure(s): US aorta Accession Number(s): [id number] cc: Jailyn Ojeda MD EXAMINATION: US RETROPERITONEAL [...] Am Stephen Radiol 2013;10 (10):789-794. (Available on HALO2CLOUD) Electronically signed by: Oren Fernandez MD 06/11/2024 06:05 AM [facility] Dictated By: Oren Fernandez MD Signed By: <Electronically signed by Oren Fernandez MD in OV> 06/11/24 0605 DD/ 1146 TD/TT: 05/07/24 1200 Associate Professor Of Management: Procedure Note Donotuseinterpreter, Image - 06/11/2024 [place] [address] Ultrasound Report Signed Patient: Loyda Rodriguez#: [id number] : 5Acct:[id number] Age/Sex: 68 / MADM Date: 05/07/24 Loc: HO.US Attending Dr: Jailyn Ojeda MD Ordering Physician: Jailyn Ojeda MD Date of Service: 05/07/24 Procedure(s): US aorta Accession Number(s): [id number] cc: Jailyn Ojeda MD EXAMINATION: US RETROPERITONEAL [...] Am Stephen Radiol 2013;10 (10):789-794. (Available on HALO2CLOUD) Electronically signed by: Oren Fernandez MD 06/11/2024 06:05 AM EST Dictated By: Oren Fernandez MD Signed By: <Electronically signed by Oren Fernandez MD in OV> 06/11/24 0605 DD/ 1146 TD/TT: 05/07/24 1200 Associate Professor Of Management: us Jailyn Ojeda MD IM US PROCEDURES Edited Re sult - Final * Vitamin B1 (05/03/2024 3:40 PM EST) Vitamin B1 22 8 - 30 nmol/L [facility] Comment:Vitamin supplementat ion within 24 hours prior toblood draw may affect the accuracy of the results.This test was developed and its analytical performancecharacteristics have been determined by [employer] [place], [place]. It hasnot been cleared or approved by the U.S. Food and DrugAdministration. This assay has been validated pursuantto the CLIA regulations and is used for clinicalpurposes.THIS TEST WAS PERFORMED AT:[employer] [place] [address]JNAPSQJNEYDA ARREDONDO MD,PHD Blood Venous blood specimen / Unknown 05/03/2024 3:40 PM EST 05/03/2024 5:52 PM EST us Jailyn Ojeda MD LAB BLOOD ORDERABLES Final Result [facility] [address] [place] [address] [phone] * Vitamin B12/Folate, Serum Panel (05/03/2024 3:40 PM EST) Vitamin B12 650 200 - 900 pg/mL [facility] Comment:NORMAL 200-900 PG/ML INDETERMINATE 160-199 PG/ML DEFICIENT < 160 PG/ML Folate 15.2 > or = 4.0 ng/mL [facility] Comment:Reference Values:> o r = 4.0 ng/mL< 4.0 ng/mL suggests folate deficiency Methotrexate, aminopterin and folinic acid(leucovorin) are chemotherapeutic agents whose molecularstructures are similar to folate; therefore, the Architectfolate assay cannot be used for patients using these drugs. Blood Venous blood specimen / Unknown 05/03/2024 3:40 PM EST 05/03/2024 5:52 PM EST us Jailyn Ojeda MD LAB BLOOD ORDERABLES Final Result [facility] [address] [place] [phone] documented in this encounter Visit Diagnoses Diagnosis Transaminitis- Primary Nonspecific elevation of levels of transaminase or lactic acid dehydrogenase (LDH) Hypercholesterolemia Pure hypercholesterolemia Macrocytosis Other specified diseases of blood and blood-forming organs Macrocytosis without anemia Other specified diseases of blood and blood-forming organs documented in this encounter Care Teams Chlorine Operator Relationship Specialty Start Date End Date Jailyn Ojeda MD [address] [place] [phone] PCP - General Internal Medicine 06/26/13 documented as of this encounter
--- OUTSIDE RECORDS SUMMARY | 2025-04-16 16:39 | XMS_ITS | Encounter Summary ---
Author Organization [email or web address] Address [address] [place] [address] Care Team Providers Care Paving Contractor Name Role Phone Jailyn Ojeda MD Primary Care Provider [phone] Reason for Referral * Consultation (Routine) - Closed Specialty Diagnoses / Procedures Referred By Contac t Referred To Contact Gastroenterology Diagnoses Positive colorectal cancer screening using Cologuard test Jailyn Ojeda MD [address] [place] [address] Phone: tel: fax: Soraida Cortes MD [address] [place] [phone] Phone: tel: fax: Referral ID Status Reason Start Date Expiration Date V isits Requested Visits Authorized [id number] Closed Specialty Services Required 05/08/2024 05/08/2025 1 1 Encounter Details Date Type Department Care Team (Late st Contact Info) Description 05/08/2024 Orders Only [facility] CHC MED & PEDS [address] [place], [place] [phone] Jailyn Ojeda MD [address] [place] [phone] Transaminitis (Primary Dx); Positive colorectal cancer screening [...] Upcoming Encounters Date Type Department Care Team ([facility] Contact Info) Description 05/19/2025 3:15 PM EST Office Visit [facility] CHC MED & PEDS [address] [place] [address] Jailyn Ojeda MD [address] [place] [address] Scheduled Referrals Name Type Priority Associated Diagnoses Order Schedule Referral to Gastroenterology Outpatient Referral Routine Positive colorectal cancer screening using Cologuard test Expected: 05/08/2024 (Approximate), Expires: 05/08/2025 documented as of this encounter Visit Diagnoses Diagnosis Transaminitis- Primary Nonspecific elevation of levels of transaminase or lactic acid dehydrogenase (LDH) Positive colorectal cancer screening using Cologuard test documented in this encounter Care Teams Paving Contractor Relationship Specialty Start Date End Date Jailyn Ojeda MD [address] [place] [phone] PCP - General Internal Medicine 06/26/13 documented as of this encounter
--- OUTSIDE RECORDS SUMMARY | 2025-04-16 16:39 | XMS_ITS | Encounter Summary ---
Author Organization [employer] Address [address] [facility] 7 [place] [address] Care Team Providers Care Hotel Baggage Handler Name Role Phone Jailyn Ojeda MD Primary Care Provider [phone] Reason for Visit * Reason Comments Med Refill Encounter Details Date Type Department Care Team ([facility] Contact Info) Description 01/02/2025 Refill [facility] CHC MED & PEDS [address] [place], [place] [phone] Jailyn Ojeda MD [address] [place] [address] Hypercholesterolemia Social History Tobacco Use Types Packs/Day [...] Upcoming Encounters Date Type Department Care Team ([facility] st Contact Info) Description 05/19/2025 3:15 PM EST Office Visit [facility] MED & PEDS [address] [place] [address] Jailyn Ojeda MD [address] [place] [address] documented as of this encounter Visit Diagnoses Diagnosis Hypercholesterolemia Pure hypercholesterolemia documented in this encounter Care Teams Hotel Baggage Handler Relationship Specialty Start Date End Date Jailyn Ojeda MD [address] [place] [address] PCP - General Internal Medicine 06/26/13 documented as of this encounter
--- OUTSIDE RECORDS SUMMARY | 2025-04-16 16:39 | XMS_ITS | Clinical Summary ---
Author Organization [employer] Address [address] [facility] 7t [place] [address] Care Team Providers Care Planning Technician Name Role Phone Jailyn Ojeda MD Primary [...] check Daily 1 kit 04/15/20 24 Active doxazosin (Cardura) 2 MG tablet TAKE [...] 30 tablet 11 04/15/20 24 025 Discontinued co-enzyme Q-10 30 MG capsuleIndicatio ns:Hypercholeste rolemia Take 1 capsule (30 mg) by mouth Once per day. 30 capsule 11 04/15/20 24 025 magnesium oxide (Mag-Ox) 400 MG tablet Take 1 tablet (400 mg) by mouth 2 times daily for 4 days. 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/19/2012 Vitamin D deficiency 12/19/2012 Encounters Date Type Department Care Team Description 04/07/2025 Results Follow-Up [facility] [address] [place] [address] Abby Sanchez RN CBC auto differential, Comprehensive Metabolic Panel, Lipid Panel, Standard, Additional followed-up results: 4 04/06/2025 Orders Only [facility] [address] [place] [address] Jailyn Ojeda MD Transaminitis (Primary Dx) 04/04/2025 2:00 PM EDT Office Visit [facility] [address] [place] [address] Jailyn Ojeda MD Annual physical exam (Primary Dx); Vitamin D deficiency; Transaminitis; Hypercholesterolemia; Smoker; Alcoholism ([facility]) ([facility]); Palpitations; Primary hypertension; Encounter for immunization 04/04/[address] [address] Henny Garcia MD 04/04/2025 Travel 04/03/2025 Telephone [facility] [address] [place] [address] Jailyn Ojeda MD Chart Prep 04/01/2025 Refill [facility] [address] [place] [address] Jailyn Ojeda MD Hypercholesterolemia 02/07/[address] [address] Jailyn Ojeda MD Nurse Triage 01/14/[address] [address] Jailyn jOeda MD from Last 3 Months Immunizations Immunization [...] 3:15 PM EST Office Visit [facility] [address] [place], [place] [phone] Jailyn Ojeda MD [address] [place], [place] [phone] Health Maintenance Due Date Last Done Comments [...] CAPACITY Routine 04/11/2025 3:29 PM EDT Transaminitis FERRITIN Routine 04/11/2025 3:29 PM EDT Transaminitis IMMUNOGLOBULINS, QUANTITATIVE, IGA, IGG, IGM Routine 04/11/2025 3:29 PM EDT Transaminitis ECG 12-LEAD Routine 04/04/2025 3:26 PM EDT [...] Recently Relevant to Health Maintenance Results * Vitamin B12/Folate, Serum Panel (04/11/2025 3:29 PM EDT) Only the most recent of2 resultswithin the time period is included. Vitamin B12 534 200 - 900 pg/mL [facility] Comment:NORMAL 200-900 PG/ML INDETERMINATE 160-199 PG/ML DEFICIENT < 160 PG/ML Folate 12.4 > or = 4.0 ng/mL [facility] Comment:Reference Values:> o r = [...] BLOOD ORDERABLES Final Result Performing Organization Address [facility]/ZIP Co de Phone Number [facility] [address] [place] [address] [phone] * (ABNORMAL) Iron And Total Iron Binding Capacity (04/11/2025 3:29 PM EDT) Iron 158 45 - 160 mcg/dL [facility] Total Iron Binding Capacity 278 228 - 428 mcg/dL [facility] Percent Iron Saturation 57(H) 15 - 50 % [facility] Unsaturated Iron Binding 120 ug/dL [facility] Blood Venous blood specimen / Unknown 04/11/2025 3:29 PM EDT 04/11/2025 6:18 PM EDT us Jailyn Ojeda MD LAB BLOOD ORDERABLES Final Result Performing Organization Address City/[facility]/ZIP Co de Phone Number [facility] [address] [place] [address] [phone] * (ABNORMAL) Immunoglobulins, Quantitative, IgA, IgG, IgM (04/11/2025 3:29 PM EDT) Pathologist [facility] IMMUNOGLOBULIN G 961 600 - 1540 mg/dL [facility] IMMUNOGLOBULIN A 421(A) 70 - 320 mg/dL [facility] Immunoglobulin M 81 50 - 300 mg/dL [facility] Comment:THIS TEST WAS PERFOR MED AT:[employer] [place] [phone] SOTO MD Blood Venous blood specimen / Unknown 04/11/2025 3:29 PM EDT 04/11/2025 6:18 PM EDT us Jailyn Ojeda MD LAB BLOOD ORDERABLES Final Result Performing Organization Address [facility]/ZIP Co de Phone Number [facility] [address] [place] [phone] * (ABNORMAL) Ferritin (04/11/2025 3:29 PM EDT) Pathologist [facility] Ferritin 1,152(H) 20 - 250 ng/mL [facility] Blood Venous blood specimen / Unknown 04/11/2025 3:29 PM EDT 04/11/2025 6:18 PM EDT us Jailyn Ojeda MD LAB BLOOD ORDERABLES Final Result Performing Organization Address City/[facility]/ZIP Co de Phone Number [facility] [address] [place] [phone] * ECG 12 lead (04/04/2025 3:26 PM EDT) Narrative Jailyn Ojeda MD - 04/04/2025 3:26 PM EDT Heart rate 72 bpm. [place] -30 degrees. Horizontal axis. No sign of left atrial enlargement or right atrial enlargement. No sign of hypertrophy. Sinus rhythm. Abnormal EKG. us Jailyn Ojeda MD ECG ORDERABLES Final Resul t * Vitamin D, 25-Hydroxy, Total, Immunoassay (04/04/2025 2:45 PM EDT) Vitamin D 25-OH Total 68.4 >30 ng/mL [facility] Comment: Health Based Reference Values*< 20 ng/mL Itbxzgmoi79-58 ng/mL Insufficient> 30 ng/mL Sufficient*Luna TIMMONS. N [...] Ojeda MD LAB BLOOD ORDERABLES Final Result [facility] [address] [place] [phone] * TSH with Reflex to Free T4 (04/04/2025 2:45 PM EDT) TSH reflex Free T4 1.21 0.32 - 4.0 uIU/mL [facility] Blood Venous blood specimen / Unknown 04/04/2025 2:45 PM EDT 04/04/2025 5:54 PM EDT us Jailyn Ojeda MD LAB BLOOD ORDERABLES Final Result [facility] [address] [place] [phone] * (ABNORMAL) CBC auto differential (04/04/2025 2:45 PM EDT) White Blood Count 6.4 4.8 - 10.8 X10*3/uL [facility] Red Blood Count 3.69(L) 4.60 - 5.80 X10*6/uL [facility] Hemoglobin 13.2(L) 14.0 - 18.0 g/dl [facility] Hematocrit 37.9(L) 42.0 - 52.0 % [facility] Mean Corpuscular Volume 102.7(H) 80.0 - 98.0 fL [facility] Mean Corpuscular Hemoglobin 35.8(H) 27.0 - 33.0 pg [facility] Mean Corpuscular HGB Conc 34.8 31.0 - 36.0 g/dl [facility] Red Cell Distribution Width 12.0 11.0 - 16.0 % [facility] Platelet Count 160 160 - 400 X10*3/uL [facility] Mean Platelet Volume 9.8 9.4 - 12.4 fL [facility] Neutrophils Percent Auto 60.5 45 - 73 % [facility] Imm Gran Pct Auto 1.4(H) 0.0 - 0.4 % [facility] Lymphocytes Percent Auto 27.9 20 - 40 % [facility] Monocytes Percent Auto 6.9 2 - 11 % [facility] Eosinophils Percent Auto 2.4 0 - 4 % [facility] Basophils Percent Auto 0.9 0 - 2 % [facility] NRBC Pct Auto 0.0 0.0 - 0.2 /100WBC [facility] Neutrophils Absolute Auto 3.9 2.0 - 8.3 x10*3/uL [facility] Imm Gran Abs Auto 0.09(H) 0.00 - 0.03 X10*3/uL [facility] Lymphocytes Absolute Auto 1.8 1.2 - 4.9 X10*3/uL [facility] Monocytes Absolute Auto 0.4 0.1 - 1.2 X10*3/uL [facility] Eosinophils Absolute Auto 0.2 0.0 - 0.4 X10*3/uL [facility] Basophils Absolute Auto 0.1 0.0 - 0.2 X10*3/uL [facility] NRBC Abs Auto 0.000 0.0 - 0.012 X10*3/uL [facility] Blood Venous blood specimen / Unknown 04/04/2025 2:45 PM EDT 04/04/2025 5:54 PM EDT us Jailyn Ojeda MD LAB BLOOD ORDERABLES Final Result Performing Organization Address [facility] [place] Phone Number [facility] [address] [place] [phone] * (ABNORMAL) Magnesium (04/04/2025 2:45 PM EDT) Magnesium 1.2(LL) 1.6 - 2.6 mg/dL [facility] Comment:Critical value for t est(s):MG Results called to and readback by: HERMAN Person calling:LAVELL Date:04-04-25 Time:1901 Blood Venous blood specimen / Unknown 04/04/2025 2:45 PM EDT 04/04/2025 5:54 PM EDT us Jailyn Ojeda MD LAB BLOOD ORDERABLES Final Result Performing Organization Address [facility]/ZIP Co de Phone Number [facility] [address] [place] [phone] * Lipid Panel, Standard (04/04/2025 2:45 PM EDT) Triglycerides 143 <150 mg/dL [facility] Comment:Desirable Triglyceri de: less than 150 mg/dLBorderline High Triglyceride 150-199 mg/dLHigh Triglyceride: 200-499 mg/dLVery High Triglyceride: greater than or equal to 5OO mg/dL Cholesterol 161 <200 mg/dL [facility] Comment:Desirable Cholestero l: less than 200 mg/dLBorderline High Cholesterol: 200-239 mg/dLHigh Cholesterol: greater than 239 mg/dL LDL Cholesterol Calculated 79 <100 mg/dL [facility] Comment:Desirable LDL: less than 100 mg/dLNear Optimal/Above Optimal LDL: 110- 129 mg/dLBorderline High LDL: 130-159 mg/dLHigh LDL: 160-189 mg/dLVery High LDL: greater than or equal to 190 mg/dL HDL Cholesterol 54 >40 mg/dL [facility] Comment:Desirable HDL: great er than 40 mg/dL Note: This HDL assay may give artificially low results in patients with liver disease. Blood Venous blood specimen / Unknown 04/04/2025 2:45 PM EDT 04/04/2025 5:54 PM EDT us Jailyn Ojeda MD LAB BLOOD ORDERABLES Final Result [facility] [address] [place] [phone] * (ABNORMAL) Comprehensive Metabolic Panel (04/04/2025 2:45 PM EDT) Sodium 142 135 - 145 mmol/L [facility] Potassium 4.0 3.3 - 5.1 mmol/L [facility] Chloride 107 96 - 108 mmol/L [facility] Carbon Dioxide 23 22 - 29 mmol/L [facility] Anion Gap 16 12 - 20 [facility] Urea Nitrogen (BUN) 11 9 - 16 mg/dL [facility] Creatinine, Serum 0.74 0.5 - 1.4 mg/dL [facility] Estimated Glomerular Filt Rate >60 [facility] Comment:Chronic Kidney Disea se: Estimated GFR < 60 mL/min/1.11s2[place]uraqi Kidney Disease: Estimated GFR < 15 mL/min/1.73m2 Glucose 95 60 - 115 mg/dL [facility] Calcium 10.5(H) 8.4 - 10.2 mg/dL [facility] Bilirubin, Total 0.4 0.0 - 1.0 mg/dL [facility] Aspartate Amino Transferase 63(H) 5 - 37 U/L [facility] Alanine Aminotransferase 38 0 - 40 U/L [facility] Total Protein 7.4 6.5 - 8.0 g/dL [facility] Albumin Level 4.6 3.5 - 5.0 g/dL [facility] Alkaline Phosphatase 100 39 - 117 U/L [facility] Blood Venous blood specimen / Unknown 04/04/2025 2:45 PM EDT 04/04/2025 5:54 PM EDT Jailyn Ojeda MD LAB BLOOD ORDERABLES Final Result [facility] [address] [place] [phone] * (ABNORMAL) Cologuard?? colon cancer screening (04/30/2024 12:10 PM EST) Cologuard Result Positive( A) Negative 05/08/2024 2:17 AM EST [facility] (CLIA #:[id number]) Comment: POSITIVE TEST RESULT. A positive Cologuard [...] (Inocencia Lerner al, N Engl J Med 2014;370(14):2586-2719.) Cologuard may produce a false negative or false positive result (no colorectal cancer or precancerous polyp present at colonoscopy follow up). A negative Cologuard test result does not guarantee the absence of CRC or advanced adenoma (pre-cancer). The current Cologuard screening interval is every 3 years. ([place] [employer] Society and U.S. Multi-Society Task Force). Cologuard performance data in a 10,000 patient pivotal study using colonoscopy as the reference method can be accessed at the following location: www.[employer]/results. Additional description of the Cologuard test process, warnings and precautions can be found at [email or web address]. Stool specimen (specimen) 04/30/2024 12:10 PM EST 05/01/2024 1:15 PM EST Jailyn Ojeda MD LAB MOLECULAR DIAGNOSTICS O RDERABLES Final Result [facility] (CLIA #:[id number]) [place] [address], * HEPATITIS C AB W/REFL TO HCV RNA, QN, PCR (07/06/2021 12:06 PM EST) HEPATITIS C ANTIBODY NON-REACT FRANCES NON-REACT FRANCES [facility] INDEX 0.05 <1.00 [facility] Comment: HCV antibody was non-reactive. There is no laboratory evidence of HCV infection. In most cases, no further action is required. However, if recent HCV exposure is suspected, a test for HCV RNA (test code 36621) is suggested. For additional information please refer to http://education.[email or web address]/faq/[email or web address] (This link is being provided for informational/ educational purposes only.) 07/06/2021 12:0 6 PM EST us Trina Luevano MD HISTORICAL/NON ORDERABLE LABS Final Result [facility] [address] from Last 3 Months or Most Recently Relevant to [place] [id number] [facility] Care Teams Planning Technician Relationship Specialty Start Date End Date Jailyn Ojeda MD [address] [place] [address] Mary GRACE [phone] PCP - General Internal Medicine 06/26/13
--- OUTSIDE RECORDS SUMMARY | 2025-04-16 16:39 | XMS_ITS | Encounter Summary ---
Author Organization [employer] Address [address] [place] [address] Care Team Providers Care Forge Tender Name Role Phone Jailyn Ojeda MD Primary Care Provider [phone] Reason for Visit * Reason Comments Med Refill Encounter Details Date Type Department Care Team (Late Contact Info) Description 06/13/2023 [facility]ill [facility] [address] [place] [address] Jailyn Ojeda MD [address] [place] [address] Social History Tobacco Use Types Packs/Day Years [...] Description 05/19/2025 3:15 PM EST Office Visit [facility] [address] [place] [address] Jailyn Ojeda MD [address] [place], [place] [phone] documented as of this encounter Visit Diagnoses Not on filedocumented in this encounter Care Teams Forge Tender Relationship Specialty Start Date End Date Jailyn Ojeda MD [address] [place] [address] PCP - General Internal Medicine 06/26/13 documented as of this encounter
== END 2025-04-16 13:32 | disposition home or self-care (01) ==
LOC: HO.HPSW 13:06
PROVIDERS: PCP Internal Medicine; Visit Provider Nurse Practitioner Family
DX: J44.9 Chronic obstructive pulmonary disease, unspecified (principal); F17.210 Nicotine dependence, cigarettes, uncomplicated; R91.1 Solitary pulmonary nodule
CPT/HCPCS: 99214; G2211

== ENCOUNTER → 2025-04-16 13:05 | Outpatient (BNVA) | payer MEDICARE, MEDICAID, SELFPAY | PROVIDERS: PCP Internal Medicine; Visit Provider Nurse Practitioner Family | DX: J44.1 Chronic obstructive pulmonary disease with (acute) exacerbation (principal); R91.1 Solitary pulmonary nodule; F17.210 Nicotine dependence, cigarettes, uncomplicated | CPT/HCPCS: 99212 ==

== ENCOUNTER → 2025-04-28 13:26 | Outpatient (REF) | payer MEDICARE, MEDICAID, SELFPAY ==
--- OUTSIDE RECORDS SUMMARY | 2025-04-28 15:31 | XMS_ITS | Encounter Summary ---
Author Organization [employer] Address [address] [place] [address] Care Team Providers Care Landfill Gas Collection System Operator Name Role Phone Jailyn Ojeda MD Primary Care Provider [phone] Reason for Referral * Imaging (Routine) - Authorized Specialty Diagnoses / Procedures Referred By Contac t Referred To Contact Radiology Diagnoses Transaminitis Procedures US Abdomen Comp w elastography Jailyn Ojeda MD [address] [place] [address] Phone: tel: fax: [address] Phone: tel: fax: Referral ID Status Reason Start Date Expiration Date V isits Requested Visits Authorized [id number] Authorized 04/10/2025 04/10/2026 1 1 Encounter Details Date Type Department Care Team (Late st Contact Info) Description 04/06/2025 Orders Only [facility] [address] [place] [address] Jailyn Ojeda MD [address] [place], [place] [phone] Transaminitis (Primary Dx) Social History Tobacco Use [...] Upcoming Encounters Date Type Department Care Team ([facility] Contact Info) Description 05/19/2025 3:15 PM EST Office Visit [facility] [address] [place] [address] Jailyn Ojeda MD [address] [place] [phone] Scheduled Orders Name Type Priority Associated Diagnoses [...] Vitamin B12 534 200 - 900 pg/mL [facility] Comment:NORMAL 200-900 PG/ML INDETERMINATE 160-199 PG/ML DEFICIENT < 160 PG/ML Folate 12.4 > or = 4.0 ng/mL [facility] [...] BLOOD ORDERABLES Final Result Performing Organization Address [facility] Co de Phone Number [facility] [address] [place] [phone] * (ABNORMAL) Iron And Total Iron Binding Capacity (04/11/2025 3:29 PM EDT) [facility] Iron 158 45 - 160 mcg/dL [facility] Total Iron Binding Capacity 278 228 - 428 mcg/dL [facility] Percent Iron Saturation 57(H) 15 - 50 % [facility] Unsaturated Iron Binding 120 ug/dL [facility] Blood Venous blood specimen / Unknown 04/11/2025 3:29 PM EDT 04/11/2025 6:18 PM EDT us Jailyn Ojeda MD LAB BLOOD ORDERABLES Final Result Performing Organization Address [facility] Co de Phone Number [facility] [address] [place] [phone] * (ABNORMAL) Ferritin (04/11/2025 3:29 PM EDT) [facility] Ferritin 1,152(H) 20 - 250 ng/mL [facility] Blood Venous blood specimen / Unknown 04/11/2025 3:29 PM EDT 04/11/2025 6:18 PM EDT us Jailyn Ojeda MD LAB BLOOD ORDERABLES Final Result Performing Organization Address [facility] de Phone Number [facility] [address] [place] [phone] * (ABNORMAL) Immunoglobulins, Quantitative, IgA, IgG, IgM (04/11/2025 3:29 PM EDT) Pathologist [facility] IMMUNOGLOBULIN G 961 600 - 1540 mg/dL [facility] IMMUNOGLOBULIN A 421(A) 70 - 320 mg/dL [facility] Immunoglobulin M 81 50 - 300 mg/dL [facility] Comment:THIS TEST WAS PERFOR MED AT:[employer] [place] [phone] SOTO MD Blood Venous blood specimen / Unknown 04/11/2025 3:29 PM EDT 04/11/2025 6:18 PM EDT Jailyn Ojeda MD LAB BLOOD ORDERABLES Final Result [facility] [address] [place] [phone] documented in this encounter Visit Diagnoses Diagnosis Transaminitis- Primary Nonspecific elevation of levels of transaminase or lactic acid dehydrogenase (LDH) documented in this encounter Additional Health Concerns Assessment Noted Time PHQ-9 Depression Total Score: 0 04/04/20 25 2:12 PM EDT documented as of this encounter Care Teams Landfill Gas Collection System Operator Relationship Specialty Start Date End Date Jailyn Ojeda MD [address] [place] [phone] PCP - General Internal Medicine 06/26/13 documented as of this encounter
--- OUTSIDE RECORDS SUMMARY | 2025-04-28 15:31 | XMS_ITS | Encounter Summary ---
Author Organization [employer] Address [address] [place] [address] Care Team Providers Care Bull Gang Worker Name Role Phone Jailyn Ojeda MD Primary Care Provider [phone]- [phone] Reason for Visit * Reason Comments Med Refill Encounter Details Date Type Department Care Team (Late Contact Info) Description 06/13/2023 Refill [facility] & PED[facility] [address] [place] [address] Jailyn Ojeda MD [address] [place] [address] Social History Tobacco Use Types Packs/Day Years [...] Description 05/19/2025 3:15 PM EST Office Visit [facility]EDS [address] [place] [address] Jailyn Ojeda MD [address] [place], [place] [phone] documented as of this encounter Visit Diagnoses Not on filedocumented in this encounter Care Teams Bull Gang Worker Relationship Specialty Start Date End Date Jailyn Ojeda MD [address] [place] [address] PCP - General Internal Medicine 06/26/13 documented as of this encounter
--- OUTSIDE RECORDS SUMMARY | 2025-04-28 15:31 | XMS_ITS | Encounter Summary ---
Author Organization [employer] Address [address] [place] [address] Care Team Providers Care Continuous Crusher Operator Name Role Phone Jailyn Ojeda MD Primary Care Provider [phone]- [phone] Reason for Referral * Consultation (Routine) - Closed Specialty Diagnoses / Procedures Referred By Contac t Referred To Contact Gastroenterology Diagnoses Positive colorectal cancer screening using Cologuard test Jailyn Ojeda MD [address] [place] [phone] Phone: tel: fax: Soraida Cortes MD [address] [place] [phone] Phone: tel: fax: Referral ID Status Reason Start Date Expiration Date V isits Requested Visits Authorized [id number] Closed Specialty Services Required 05/08/2024 05/08/2025 1 1 Encounter Details Date Type Department Care Team (Late st Contact Info) Description 05/08/2024 Orders Only [facility] MED & PEDS [address] [place], [place] [phone] Jailyn Ojeda MD [address] [place] [address] [phone] Transaminitis (Primary Dx); Positive colorectal cancer screening [...] Upcoming Encounters Date Type Department Care Team ([facility] Contact Info) Description 05/19/2025 3:15 PM EST Office Visit [facility]EDS [address] [place] [address] Jailyn Ojeda MD [address] [place] [address] Scheduled Referrals Name Type Priority Associated Diagnoses Order Schedule Referral to Gastroenterology Outpatient Referral Routine Positive colorectal cancer screening using Cologuard test Expected: 05/08/2024 (Approximate), Expires: 05/08/2025 documented as of this encounter Visit Diagnoses Diagnosis Transaminitis- Primary Nonspecific elevation of levels of transaminase or lactic acid dehydrogenase (LDH) Positive colorectal cancer screening using Cologuard test documented in this encounter Care Teams Continuous Crusher Operator Relationship Specialty Start Date End Date Jailyn Ojeda MD [address] [place] [phone] PCP - General Internal Medicine 06/26/13 documented as of this encounter
--- OUTSIDE RECORDS SUMMARY | 2025-04-28 15:31 | XMS_ITS | Encounter Summary ---
Author Organization [employer] Address [address] [facility] 7 [place] [address] Care Team Providers Care Merchandising Professor Name Role Phone Jailyn Ojeda MD Primary Care Provider [phone] Reason for Visit * Reason Onset Date Comments Nurse Triage 02/07/2025 Encounter Details Date Type Department Care Team ([facility] st Contact Info) Description 02/07/2025 Telephone [facility] [address] [place] [address] Jailyn Ojeda MD [address] [place], [place] [phone] Nurse Triage Social History Tobacco Use Types [...] Description 05/19/2025 3:15 PM EST Office Visit [facility] MED & PEDS [address] [place] [address] Jailyn Ojeda MD [address] [place] [address] documented as of this encounter Visit Diagnoses Not on filedocumented in this encounter Care Teams Merchandising Professor Relationship Specialty Start Date End Date Jailyn Ojeda MD [address] [place] [address] PCP - General Internal Medicine 06/26/13 documented as of this encounter
--- OUTSIDE RECORDS SUMMARY | 2025-04-28 15:31 | XMS_ITS | Encounter Summary ---
Author Organization [employer] Address [address] [facility] 7 [place] [address] Care Team Providers Care Pit Inspector Name Role Phone Jailyn Ojeda MD Primary Care Provider [phone] Reason for Visit * Reason Comments Med Refill Encounter Details Date Type Department Care Team ([facility] Contact Info) Description 01/02/2025 Refill [facility] [address] [place], [place] [phone] Jailyn Ojeda MD [address] [place] [address] Hypercholesterolemia Social History Tobacco Use Types Packs/Day [...] Upcoming Encounters Date Type Department Care Team ([facility] st Contact Info) Description 05/19/2025 3:15 PM EST Office Visit [facility] [address] [place] [address] Jailyn Ojeda MD [address] [place] [address] documented as of this encounter Visit Diagnoses Diagnosis Hypercholesterolemia Pure hypercholesterolemia documented in this encounter Care Teams Pit Inspector Relationship Specialty Start Date End Date Jailyn Ojeda MD [address] [place] [address] PCP - General Internal Medicine 06/26/13 documented as of this encounter
--- OUTSIDE RECORDS SUMMARY | 2025-04-28 15:31 | XMS_ITS | Clinical Summary ---
Author Organization [employer] Address [address] [facility] 7t [place] [address] Care Team Providers Care Night Warehouse Manager Name Role Phone Jailyn Ojeda MD [...] Hypercholesterolemia 04/15/2024 Macrocytosis without anemia 04/15/2024 Alcoholism (CMS/HCC) 12/19/2012 Smoker 12/19/2012 Tooth disorder 12/19/2012 Vitamin D deficiency 12/19/2012 Encounters Date Type Department Care Team Description 04/18/2025 Results Follow-Up [facility] [address] [place] [address] Mildred Alejandre RN Immunoglobulins, Quantitative, IgA, IgG, IgM, Ferritin, Iron And Total Iron Binding Capacity, Vitamin B12/Folate, Serum Panel 04/07/2025 Results Follow-Up [facility] [address] [place] [phone] Abby Sanchez RN CBC auto differential, Comprehensive Metabolic Panel, Lipid Panel, Standard, Additional followed-up results: 4 04/06/2025 Orders Only [facility] [address] [place] [address] Jailyn Ojeda MD Transaminitis (Primary Dx) 04/04/2025 2:00 PM EDT Office Visit [facility] [address] [place] [address] Jailyn Ojeda MD Annual physical exam (Primary Dx); Vitamin D deficiency; Transaminitis; Hypercholesterolemia; Smoker; Alcoholism ([facility] ([facility]); Palpitations; Primary hypertension; Encounter for immunization 04/04/2025 Telephone [facility] [address] [place] [address] Henny Garcia MD 04/04/2025 Travel 04/03/2025 Telephone [facility] [address] [place] [address] Jailyn Ojeda MD Chart Prep 04/01/2025 Refill [facility] [address] [place] [address] Jailyn Ojeda MD Hypercholesterolemia 02/07/2025 Telephone [facility] [address] [place] [address] Jailyn Ojeda MD Nurse Triage from Last 3 Months Immunizations Immunization Administration [...] 3:15 PM EST Office Visit [facility] [address] [place], [place] [phone] Jailyn Ojeda MD [address] [place] [address] Health Maintenance Due Date Last Done Comments [...] Vitamin B12 534 200 - 900 pg/mL [facility] Comment:NORMAL 200-900 PG/M L INDETERMINATE 160-199 PG/ML DEFICIENT < 160 PG/ML Folate 12.4 > or = 4.0 ng/mL [facility] Comment:Reference Values:> o r = 4.0 ng/mL< 4.0 ng/mL suggests folate deficiency Methotrexate, aminopterin and folinic acid(leucovorin) are chemotherapeutic agents whose molecularstructures are similar to folate; therefore, the Architectfolate assay cannot be used for patients using these drugs. Blood Venous blood specimen / Unknown 04/11/2025 3:29 PM EDT 04/11/2025 6:18 PM EDT us Jailyn Ojeda MD LAB BLOOD ORDERABLES Final Result [facility] [address] [place] [phone] * (ABNORMAL) Iron And Total Iron Binding Capacity (04/11/2025 3:29 PM EDT) Iron 158 45 - 160 mcg/dL [facility] Total Iron Binding Capacity 278 228 - 428 mcg/dL [facility] Percent Iron Saturation 57(H) 15 - 50 % [facility] Unsaturated Iron Binding 120 ug/dL [facility] Blood Venous blood specimen / Unknown 04/11/2025 3:29 PM EDT 04/11/2025 6:18 PM EDT us Jailyn Ojeda MD LAB BLOOD ORDERABLES Final Result Performing Organization Address [facility] de Phone Number [facility] [address] [place] [phone] * (ABNORMAL) Immunoglobulins, Quantitative, IgA, IgG, IgM (04/11/2025 3:29 PM EDT) Pathologist [facility] IMMUNOGLOBULIN G 961 600 - 1540 mg/dL [facility] IMMUNOGLOBULIN A 421(A) 70 - 320 mg/dL [facility] Immunoglobulin M 81 50 - 300 mg/dL [facility] Comment:THIS TEST WAS PERFOR MED AT:[employer] [place] [phone] SOTO MD Blood Venous blood specimen / Unknown 04/11/2025 3:29 PM EDT 04/11/2025 6:18 PM EDT us Jailyn Ojeda MD LAB BLOOD ORDERABLES Final Result Performing Organization Address [facility] Number [facility] [address] [place] [phone] * (ABNORMAL) Ferritin (04/11/2025 3:29 PM EDT) [facility] Ferritin 1,152(H) 20 - 250 ng/mL [facility] Blood Venous blood specimen / Unknown 04/11/2025 3:29 PM EDT 04/11/2025 6:18 PM EDT us Jailyn Ojeda MD LAB BLOOD ORDERABLES Final Result Performing Organization Address [facility] de Phone Number [facility] [address] [place] [phone] * ECG 12 lead (04/04/2025 3:26 PM EDT) Narrative Jailyn Ojeda MD - 04/04/2025 3:26 PM EDT Heart rate 72 bpm. [place] -30 degrees. Horizontal axis. No sign of left atrial enlargement or right atrial enlargement. No sign of hypertrophy. Sinus rhythm. Abnormal EKG. us Jailyn Ojeda MD ECG ORDERABLES Final Resul t * Vitamin D, 25-Hydroxy, Total, Immunoassay (04/04/2025 2:45 PM EDT) Vitamin D 25-OH Total 68.4 >30 ng/mL [facility] Comment: Health Based Reference Values*< 20 ng/mL Jlsvdfjsz06-83 ng/mL Insufficient> 30 ng/mL Sufficient*Luna TIMMONS. N [...] Ojeda MD LAB BLOOD ORDERABLES Final Result [facility] [address] [place] [phone] * TSH with Reflex to Free T4 (04/04/2025 2:45 PM EDT) TSH reflex Free T4 1.21 0.32 - 4.0 uIU/mL [facility] Blood Venous blood specimen / Unknown 04/04/2025 2:45 PM EDT 04/04/2025 5:54 PM EDT us Jailyn Ojeda MD LAB BLOOD ORDERABLES Final Result [facility] [address] [place] [phone] [phone] * (ABNORMAL) CBC auto differential (04/04/2025 2:45 PM EDT) White Blood Count 6.4 4.8 - 10.8 X10*3/uL [facility] Red Blood Count 3.69(L) 4.60 - 5.80 X10*6/uL [facility] Hemoglobin 13.2(L) 14.0 - 18.0 g/dl [facility] Hematocrit 37.9(L) 42.0 - 52.0 % [facility] Mean Corpuscular Volume 102.7(H) 80.0 - 98.0 fL [facility] Mean Corpuscular Hemoglobin 35.8(H) 27.0 - 33.0 pg [facility] Mean Corpuscular HGB Conc 34.8 31.0 - 36.0 g/dl [facility] Red Cell Distribution Width 12.0 11.0 - 16.0 % [facility] Platelet Count 160 160 - 400 X10*3/uL [facility] Mean Platelet Volume 9.8 9.4 - 12.4 fL [facility] Neutrophils Percent Auto 60.5 45 - 73 % [facility] Imm Gran Pct Auto 1.4(H) 0.0 - 0.4 % [facility] Lymphocytes Percent Auto 27.9 20 - 40 % [facility] Monocytes Percent Auto 6.9 2 - 11 % [facility] Eosinophils Percent Auto 2.4 0 - 4 % [facility] Basophils Percent Auto 0.9 0 - 2 % [facility] NRBC Pct Auto 0.0 0.0 - 0.2 /100WBC [facility] Neutrophils Absolute Auto 3.9 2.0 - 8.3 x10*3/uL [facility] Imm Gran Abs Auto 0.09(H) 0.00 - 0.03 X10*3/uL [facility] Lymphocytes Absolute Auto 1.8 1.2 - 4.9 X10*3/uL [facility] Monocytes Absolute Auto 0.4 0.1 - 1.2 X10*3/uL [facility] Eosinophils Absolute Auto 0.2 0.0 - 0.4 X10*3/uL [facility] Basophils Absolute Auto 0.1 0.0 - 0.2 X10*3/uL [facility] NRBC Abs Auto 0.000 0.0 - 0.012 X10*3/uL [facility] Blood Venous blood specimen / Unknown 04/04/2025 2:45 PM EDT 04/04/2025 5:54 PM EDT Jailyn Ojeda MD LAB BLOOD ORDERABLES Final Result Performing Organization Address City/[facility]/ZIP Co de Phone Number [facility] [address] [place] [phone] * (ABNORMAL) Magnesium (04/04/2025 2:45 PM EDT) Magnesium 1.2(LL) 1.6 - 2.6 mg/dL [facility] Comment:Critical value for t est(s):MG Results called to and readback by: HERMAN Person calling:PACO Date:04-04-25 Time:1901 Blood Venous blood specimen / Unknown 04/04/2025 2:45 PM EDT 04/04/2025 5:54 PM EDT Jailyn Ojeda MD LAB BLOOD ORDERABLES Final Result Performing Organization Address [facility]/ZIP Co de Phone Number [facility] [address] [place] [phone] * Lipid Panel, Standard (04/04/2025 2:45 PM EDT) Triglycerides 143 <150 mg/dL [facility] Comment:Desirable Triglyceri de: less than 150 mg/dLBorderline High Triglyceride 150-199 mg/dLHigh Triglyceride: 200-499 mg/dLVery High Triglyceride: greater than or equal to 5OO mg/dL Cholesterol 161 <200 mg/dL [facility] Comment:Desirable Cholestero l: less than 200 mg/dLBorderline High Cholesterol: 200-239 mg/dLHigh Cholesterol: greater than 239 mg/dL LDL Cholesterol Calculated 79 <100 mg/dL [facility] Comment:Desirable LDL: less than 100 mg/dLNear Optimal/Above Optimal LDL: 110- 129 mg/dLBorderline High LDL: 130-159 mg/dLHigh LDL: 160-189 mg/dLVery High LDL: greater than or equal to 190 mg/dL HDL Cholesterol 54 >40 mg/dL [facility] Comment:Desirable HDL: great er than 40 mg/dL Note: This HDL assay may give artificially low results in patients with liver disease. Blood Venous blood specimen / Unknown 04/04/2025 2:45 PM EDT 04/04/2025 5:54 PM EDT us Jailyn Ojeda MD LAB BLOOD ORDERABLES Final Result [facility] [address] [place], [place] [phone] * (ABNORMAL) Comprehensive Metabolic Panel (04/04/2025 2:45 PM EDT) Sodium 142 135 - 145 mmol/L [facility] Potassium 4.0 3.3 - 5.1 mmol/L [facility] Chloride 107 96 - 108 mmol/L [facility] Carbon Dioxide 23 22 - 29 mmol/L [facility] Anion Gap 16 12 - 20 [facility] Urea Nitrogen (BUN) 11 9 - 16 mg/dL [facility] Creatinine, Serum 0.74 0.5 - 1.4 mg/dL [facility] Estimated Glomerular Filt Rate >60 [facility] Comment:Chronic Kidney Disea se: Estimated GFR < 60 mL/min/1.14v1Myykhf Kidney Disease: Estimated GFR < 15 mL/min/1.73m2 Glucose 95 60 - 115 mg/dL [facility] Calcium 10.5(H) 8.4 - 10.2 mg/dL [facility] Bilirubin, Total 0.4 0.0 - 1.0 mg/dL [facility] Aspartate Amino Transferase 63(H) 5 - 37 U/L [facility] Alanine Aminotransferase 38 0 - 40 U/L [facility] Total Protein 7.4 6.5 - 8.0 g/dL [facility] Albumin Level 4.6 3.5 - 5.0 g/dL [facility] Alkaline Phosphatase 100 39 - 117 U/L [facility] Blood Venous blood specimen / Unknown 04/04/2025 2:45 PM EDT 04/04/2025 5:54 PM EDT us Jailyn Ojeda MD LAB BLOOD ORDERABLES Final Result [facility] [address] [place], [place] [phone] * (ABNORMAL) Cologuard?? colon cancer screening (04/30/2024 12:10 PM EST) Cologuard Result Positive( A) Negative 05/08/2024 2:17 AM EST [facility] (CLIA #:[id number]) Comment: POSITIVE TEST RESULT. A positive Cologuard [...] Lomeli et al, N Engl J Med 2014;370(14):2987-5458.) Cologuard may produce a false negative or false positive result (no colorectal cancer or precancerous polyp present at colonoscopy follow up). A negative Cologuard test result does not guarantee the absence of CRC or advanced adenoma (pre-cancer). The current Cologuard screening interval is every 3 years. ([place] [employer] Society and U.S. Multi-Society Task Force). Cologuard performance data in a 10,000 patient pivotal study using colonoscopy as the reference method can be accessed at the following location: www.[employer]/results. Additional description of the Cologuard test process, warnings and precautions can be found at www.Absiooguard.com. Stool specimen (specimen) 04/30/2024 12:10 PM EST 05/01/2024 1:15 PM EST us Jailyn Ojeda MD LAB MOLECULAR DIAGNOSTICS O RDERABLES Final Result [facility] (CLIA #:[id number]) [place] [address] [place] [address], * HEPATITIS C AB W/REFL TO HCV RNA, QN, PCR (07/06/2021 12:06 PM EST) HEPATITIS C ANTIBODY NON-REACT FRANCES NON-REACT FRANCES [facility] INDEX 0.05 <1.00 [facility] Comment: HCV antibody was non-reactive. There is no laboratory evidence of HCV infection. In most cases, no further action is required. However, if recent HCV exposure is suspected, a test for HCV RNA (test code 17765) is suggested. For additional information please refer to http://[employer]/faq/MSW28a6 (This link is being provided for informational/ educational purposes only.) 07/06/2021 12:0 6 PM EST us Trina Luevano MD HISTORICAL/NON ORDERABLE LABS Final Result Performing Organization Address City/State/[facility] Co de Phone Number [facility] [address] from Last 3 Months or Most Recently Relevant to Health Maintenance Insurance [place] [address] [place] [phone] [facility] STANDARD Care Teams Night Warehouse Manager Relationship Specialty Start Date End Date Jailyn Ojeda MD [address] [place] [address] GRACE Hernandez [phone] PCP - General Internal Medicine 06/26/13
--- OUTSIDE RECORDS SUMMARY | 2025-04-28 15:31 | XMS_ITS | Encounter Summary ---
Author Organization [employer] Address [address] [facility] 7 [place] [address] Care Team Providers Care Laser Beam Color Scanner Operator Name Role Phone Jailyn Ojeda MD Primary Care Provider [phone] Encounter Details Date Type Department Care Team ([facility] st Contact Info) Description 04/15/2024 Orders Only [facility] [address] [place] [address] Jailyn Ojeda MD [address] [place] [address] Transaminitis (Primary Dx); Hypercholesterolemia; Macrocytosis; Macrocytosis without [...] 05/19/2025 3:15 PM EST Office Visit [facility] [address] [place] [address] Jailyn Ojeda MD [address] [place], [place] [phone] documented as of this encounter Procedures Procedure [...] AM EST Narrative 06/11/2024 6:08 AM EST [place] [address] Ultrasound Report Signed Patient: Kike Rodriguez MR#: [id number] 198 : 1955 Acct:[id number] Age/Sex: 68 / M ADM Date: 05/07/24 Loc: HO.US Attending Dr: Jailyn Ojeda MD Ordering Physician: Jailyn Ojeda MD Date of Service: 05/07/24 Procedure(s): US aorta Accession Number(s): [id number] cc: Jailyn Ojeda MD EXAMINATION: US RETROPERITONEAL [...] Am Stephen Radiol 2013;10 (10):789-794. (Available on [employer]) Electronically signed by: Oren Fernandez MD 06/11/2024 06:05 AM [facility] Dictated By: Oren Fernandez MD Signed By: <Electronically signed by Oren Fernandez MD in OV> 06/11/24 0605 DD/ 1146 TD/TT: 05/07/24 1200 Aws Architect: Procedure Note Donotuseinterpreter, Image - 06/11/2024 [place] [address] Ultrasound Report Signed Patient: Loyda Rodriguez#: [id number] 198 : 5Acct:[id number] Age/Sex: 68 / MADM Date: 05/07/24 Loc: HO.US Attending Dr: Jailyn Ojeda MD Ordering Physician: Jailyn Ojead MD Date of Service: 05/07/24 Procedure(s): US aorta Accession Number(s): [id number] cc: Jailyn Ojeda MD EXAMINATION: US RETROPERITONEAL [...] Am Stephen Radiol 2013;10 (10):789-794. (Available on [employer]) Electronically signed by: Oren Fernandez MD 06/11/2024 06:05 AM EST Dictated By: Oren Fernandez MD Signed By: <Electronically signed by Oren Fernandez MD in OV> 06/11/24 0605 DD/ 1146 TD/TT: 05/07/24 1200 Aws Architect: us Jailyn Ojeda MD IM US PROCEDURES Edited Re sult - Final * Vitamin B1 (05/03/2024 3:40 PM EST) Vitamin B1 22 8 - 30 nmol/L [facility] Comment:Vitamin supplementat ion within 24 hours prior toblood draw may affect the accuracy of the results.This test was developed and its analytical performancecharacteristics have been determined by [employer] [place], [place]. It hasnot been cleared or approved by the U.S. Food and DrugAdministration. This assay has been validated pursuantto the CLIA regulations and is used for clinicalpurposes.THIS TEST WAS PERFORMED AT:[id number] [place] [address]CBJJAEONEYDA ARREDONDO MD,PHD Blood Venous blood specimen / Unknown 05/03/2024 3:40 PM EST 05/03/2024 5:52 PM EST us Jailyn Ojeda MD LAB BLOOD ORDERABLES Final Result [facility] [address] [place] [address] [phone] * Vitamin B12/Folate, Serum Panel (05/03/2024 3:40 PM EST) Vitamin B12 650 200 - 900 pg/mL [facility] Comment:NORMAL 200-900 PG/ML INDETERMINATE 160-199 PG/ML DEFICIENT < 160 PG/ML Folate 15.2 > or = 4.0 ng/mL [facility] Comment:Reference Values:> o r = 4.0 ng/mL< 4.0 ng/mL suggests folate deficiency Methotrexate, aminopterin and folinic acid(leucovorin) are chemotherapeutic agents whose molecularstructures are similar to folate; therefore, the Architectfolate assay cannot be used for patients using these drugs. Blood Venous blood specimen / Unknown 05/03/2024 3:40 PM EST 05/03/2024 5:52 PM EST us Jailyn Ojeda MD LAB BLOOD ORDERABLES Final Result [facility] [address] [place] [phone] documented in this encounter Visit Diagnoses Diagnosis Transaminitis- Primary Nonspecific elevation of levels of transaminase or lactic acid dehydrogenase (LDH) Hypercholesterolemia Pure hypercholesterolemia Macrocytosis Other specified diseases of blood and blood-forming organs Macrocytosis without anemia Other specified diseases of blood and blood-forming organs documented in this encounter Care Teams Laser Beam Color Scanner Operator Relationship Specialty Start Date End Date Jailyn Ojeda MD [address] [place] [phone] PCP - General Internal Medicine 06/26/13 documented as of this encounter
== END ==
LOC: HO.CARD 13:26
PROVIDERS: PCP Internal Medicine; Visit Provider Internal Medicine
DX: R00.2 Palpitations (principal)
CPT/HCPCS: 93225

== ENCOUNTER → 2025-06-06 15:02 | Outpatient (BNV) | payer MEDICARE, MEDICAID, SELFPAY | PROVIDERS: Visit Provider Internal Medicine | DX: R00.2 Palpitations (principal) | CPT/HCPCS: 93227 ==

== ENCOUNTER → 2025-06-06 15:02 | Outpatient (REF) | payer MEDICARE, MEDICAID, SELFPAY ==
--- OUTSIDE RECORDS SUMMARY | 2025-06-06 16:17 | XMS_ITS | Encounter Summary ---
Author Organization [employer] Address [address] [facility] 7 [place] [address] Care Team Providers Care Tractor Expert Name Role Phone Jailyn Ojeda MD Primary Care Provider [phone] Encounter Details Date Type Department Care Team ([facility] st Contact Info) Description 04/15/2024 Orders Only [facility] MED & PEDS [address] [place] [address] Jailyn Ojeda MD [address] [place] [address] Transaminitis (Primary Dx); Hypercholesterolemia; Macrocytosis; Macrocytosis without [...] AM EST Narrative 06/11/2024 6:08 AM EST [place] [address] Ultrasound Report Signed Patient: Kike Rodriguez MR#: [id number] 198 : 1955 Acct:[id number] Age/Sex: 68 / M ADM Date: 05/07/24 Loc: HO.US Attending Dr: Jailyn Ojeda MD Ordering Physician: Jailyn Ojeda MD Date of Service: 05/07/24 Procedure(s): US aorta Accession Number(s): [id number] cc: Jailyn Ojeda MD EXAMINATION: US RETROPERITONEAL [...] Am Stephen Radiol 2013;10 (10):789-794. (Available on [employer] Electronically signed by: Oren Fernandez MD 06/11/2024 06:05 AM EST Dictated By: Oren Fernandez MD Signed By: <Electronically signed by Oren Fernandez MD in OV> 12/24/24 0605 DD/ 1146 TD/TT: 05/07/24 1200 Administration Physician: HS Procedure Note Donotuseinterpreter, Image - 06/11/2024 [place] [address] Ultrasound Report Signed Patient: Loyda Rodriguez#: [id number] 198 : 5Acct:[id number] Age/Sex: 68 / MADM Date: 05/07/24 Loc: HO.US Attending Dr: Jailyn Ojeda MD Ordering Physician: Jailyn Ojeda MD Date of Service: 05/07/24 Procedure(s): US aorta Accession Number(s): [id number] cc: Jailyn Ojeda MD EXAMINATION: US RETROPERITONEAL [...] 06/11/24 0605 DD/ 1146 TD/TT: 05/07/24 1200 Administration Physician: HS Jailyn Ojeda MD IMG US PROCEDURES Edited Re sult - Final * Vitamin B1 (05/03/2024 3:40 PM EST) Vitamin B1 22 8 - 30 nmol/L [facility] Comment:Vitamin supplementat ion within 24 hours prior toblood draw may affect the accuracy of the results.This test was developed and its analytical performancecharacteristics have been determined by [employer] [place], [place]. It hasnot been cleared or approved by the U.S. Food and DrugAdministration. This assay has been validated pursuantto the CLIA regulations and is used for clinicalpurposes.THIS TEST WAS PERFORMED AT:[employer] [place] [address]GKYRYXINEYDA ARREDONDO MD,PHD Blood Venous blood specimen / Unknown 05/03/2024 3:40 PM EST 05/03/2024 5:52 PM EST us Jailyn Ojeda MD LAB BLOOD ORDERABLES Final Result [facility] [address] [place] [address] [phone] * Vitamin B12/Folate, Serum Panel (05/03/2024 3:40 PM EST) Vitamin B12 650 200 - 900 pg/mL [facility] Comment:NORMAL 200-900 PG/ML INDETERMINATE 160-199 PG/ML DEFICIENT < 160 PG/ML Folate 15.2 > or = 4.0 ng/mL [facility] Comment:Reference Values:> o r = 4.0 ng/mL< 4.0 ng/mL suggests folate deficiency Methotrexate, aminopterin and folinic acid(leucovorin) are chemotherapeutic agents whose molecularstructures are similar to folate; therefore, the Architectfolate assay cannot be used for patients using these drugs. Blood Venous blood specimen / Unknown 05/03/2024 3:40 PM EST 05/03/2024 5:52 PM EST Jailyn Ojeda MD LAB BLOOD ORDERABLES Final Result Performing Organization Address City/State/[facility] Co de Phone Number [facility] [address] [place] [phone] [phone] documented in this encounter Visit Diagnoses Diagnosis Transaminitis- Primary Nonspecific elevation of levels of transaminase or lactic acid dehydrogenase (LDH) Hypercholesterolemia Pure hypercholesterolemia Macrocytosis Other specified diseases of blood and blood-forming organs Macrocytosis without anemia Other specified diseases of blood and blood-forming organs documented in this encounter Care Teams Tractor Expert Relationship Specialty Start Date End Date Jailyn Ojeda MD [address] [place] [phone] PCP - General Internal Medicine 06/26/13 documented as of this encounter
--- OUTSIDE RECORDS SUMMARY | 2025-06-06 16:17 | XMS_ITS | Encounter Summary ---
Author Organization [employer] Address [address] [place] [address] Care Team Providers Care Credit Collections Analyst Name Role Phone Jailyn Ojeda MD Primary Care Provider [phone]- [phone] Reason for Visit * Reason Comments Med Refill Encounter Details Date Type Department Care Team ([facility] st Contact Info) Description 06/13/2023 Refill [facility] MED & PEDS [address] [place], [place] [phone] Jailyn Ojeda MD [address] [place] [address] Social History Tobacco Use Types Packs/Day Years [...] on filedocumented in this encounter Care Teams Credit Collections Analyst Relationship Specialty Start Date End Date Jailyn Ojeda MD [address] [place] [address] PCP - General Internal Medicine 06/26/13 documented as of this encounter
--- OUTSIDE RECORDS SUMMARY | 2025-06-06 16:17 | XMS_ITS | Encounter Summary ---
Author Organization [employer] Address [address] [place] [address] Care Team Providers Care Product Applications Engineer Name Role Phone Jailyn Ojeda MD Primary Care Provider [phone]- [phone] Reason for Referral * Consultation (Routine) - Closed Specialty Diagnoses / Procedures Referred By Contac t Referred To Contact Gastroenterology Diagnoses Positive colorectal cancer screening using Cologuard test Jailyn Ojeda MD [address] [place] [phone] Phone: tel: fax: Soraida Cortes MD [address] [place] [phone] Phone: tel: fax: Referral ID Status Reason Start Date Expiration Date V isits Requested Visits Authorized [id number] Closed Specialty Services Required 05/08/2024 05/08/2025 1 1 Encounter Details Date Type Department Care Team (Late st Contact Info) Description 05/08/2024 Orders Only [facility] CHC MED & PEDS [address] [place], [place] [phone] Jailyn Ojeda MD [address] [place] [address] [phone] Transaminitis (Primary Dx); Positive colorectal cancer screening [...] test documented in this encounter Care Teams Product Applications Engineer Relationship Specialty Start Date End Date Jailyn Ojeda MD [address] [place] [phone] PCP - General Internal Medicine 06/26/13 documented as of this encounter
--- OUTSIDE RECORDS SUMMARY | 2025-06-06 16:18 | XMS_ITS | Encounter Summary ---
Author Organization [employer] Address [address] [facility] 7 [place] [address] Care Team Providers Care Industrial Truck Operator Name Role Phone Jailyn Ojeda MD Primary Care Provider [phone] Reason for Visit * Reason Comments Med Refill Encounter Details Date Type Department Care Team ([facility] Contact Info) Description 01/02/2025 Refill [facility] CHC MED & PEDS [address] [place], [place] [phone] Jailyn Ojeda MD [address] [place] [address] Hypercholesterolemia Social History Tobacco Use Types Packs/Day [...] hypercholesterolemia documented in this encounter Care Teams Industrial Truck Operator Relationship Specialty Start Date End Date Jailyn Ojeda MD [address] [place] [phone] PCP - General Internal Medicine 06/26/13 documented as of this encounter
--- OUTSIDE RECORDS SUMMARY | 2025-06-06 16:18 | XMS_ITS | Encounter Summary ---
Author Organization [employer] Address [address] [place] [address] Care Team Providers Care Manager Desktop Name Role Phone Jailyn Ojeda MD Primary Care Provider [phone] [phone] Reason for Referral * Imaging (Routine) - Authorized Specialty Diagnoses / Procedures Referred By Contac t Referred To Contact Radiology Diagnoses Transaminitis Procedures US Abdomen Comp w elastography Jailyn Ojeda MD [address] [place] [address] Phone: tel: fax: [address] [phone] Phone: tel: fax: Referral ID Status Reason Start Date Expiration Date V isits Requested Visits Authorized [id number] Authorized 04/10/2025 04/10/2026 1 1 Encounter Details Date Type Department Care Team (Late st Contact Info) Description 04/06/2025 Orders Only [facility] CHC MED & PEDS [address] [place], [place] [phone] Jailyn Ojeda MD [address] [place] [address] [phone] Transaminitis (Primary Dx) Social History Tobacco Use [...] of this encounter Plan of Treatment Scheduled Orders Name Type Priority Associated Diagnoses [...] Vitamin B12 534 200 - 900 pg/mL [facility] Comment:NORMAL 200-900 PG/ML INDETERMINATE 160-199 PG/ML DEFICIENT < 160 PG/ML Folate 12.4 > or = 4.0 ng/mL [facility] Comment:Reference Values:> o r = [...] Final Result [facility] [address] [place] [phone] * (ABNORMAL) Iron And Total Iron Binding Capacity (04/11/2025 3:29 PM EDT) Pathologist [facility] Iron 158 45 - 160 mcg/dL [facility] Total Iron Binding Capacity 278 228 - 428 mcg/dL [facility] Percent Iron Saturation 57(H) 15 - 50 % [facility] Unsaturated Iron Binding 120 ug/dL [facility] Blood Venous blood specimen / Unknown 04/11/2025 3:29 PM EDT 04/11/2025 6:18 PM EDT us Jailyn Ojeda MD LAB BLOOD ORDERABLES Final Result Performing Organization Address [facility]/ZIP Co de Phone Number [facility] [address] [place] [phone] * (ABNORMAL) Ferritin (04/11/2025 3:29 PM EDT) Pathologist [facility] Ferritin 1,152(H) 20 - 250 ng/mL [facility] Blood Venous blood specimen / Unknown 04/11/2025 3:29 PM EDT 04/11/2025 6:18 PM EDT us Jailyn Ojeda MD LAB BLOOD ORDERABLES Final Result Performing Organization Address [facility] Co de Phone Number [facility] [address] [place] [phone] * (ABNORMAL) Immunoglobulins, Quantitative, IgA, IgG, IgM (04/11/2025 3:29 PM EDT) Pathologist [facility] IMMUNOGLOBULIN G 961 600 - 1540 mg/dL [facility] IMMUNOGLOBULIN A 421(A) 70 - 320 mg/dL [facility] Immunoglobulin M 81 50 - 300 mg/dL [facility] Comment:THIS TEST WAS PERFOR MED AT:[facility] [place] [phone] SOTO MD Blood Venous blood specimen / Unknown 04/11/2025 3:29 PM EDT 04/11/2025 6:18 PM EDT Jailyn Ojeda MD LAB BLOOD ORDERABLES Final Result [facility] [address] [place] [phone] documented in this encounter Visit Diagnoses Diagnosis Transaminitis- Primary Nonspecific elevation of levels of transaminase or lactic acid dehydrogenase (LDH) documented in this encounter Additional Health Concerns Assessment Noted Time PHQ-9 Depression Total Score: 0 04/04/20 25 2:12 PM EDT documented as of this encounter Care Teams Manager Desktop Relationship Specialty Start Date End Date Jailyn Ojeda MD [address] [place] [phone] PCP - General Internal Medicine 06/26/13 documented as of this encounter
--- OUTSIDE RECORDS SUMMARY | 2025-06-06 16:18 | XMS_ITS | Clinical Summary ---
Author Organization [employer] Address [address] [facility] 7t [place] [address] Care Team Providers Care Executive Consultant Name Role Phone Jailyn Ojeda MD Primary Care Provider Allergies No known active allergies Medications cholecalciferol (Vitamin D-3) 25 MCG (1000 UT) capsule Take 1 capsule by mouth Once per day. 0 Active B Complex Vitamins (RA B-Complex with B-12) tablet Take by mouth. 0 Active Blood Pressure kitIndications:El evated BP without diagnosis of hypertension BP check Daily 1 kit 4 Active doxazosin (Cardura) 2 MG tablet TAKE 1 TABLET BY MOUTH EVERY DAY 90 tablet 3 5 Active atorvastatin (Lipitor) 20 MG tabletIndications :Hypercholesterol emia TAKE 1 TABLET(20 MG) BY MOUTH DAILY 30 tablet 11 5 Active nicotine (Nicoderm CQ) 7 MG/24HR patchIndications: Smoker Place 1 patch on the skin 1 (one) time each day at the same time. 30 patch 5 Active Blood Pressure kitIndications:Pr imary hypertension To check the BP daily 1 kit 5 Active Active Problems Problem Noted Date Diagnosed Date Transaminitis 04/15/2024 Hypercholesterolemia 04/15/2024 Macrocytosis without anemia 04/15/2024 Alcoholism (CMS/HCC) 12/19/2012 Smoker 12/19/2012 Tooth disorder 12/19/2012 Vitamin D deficiency 12/19/2012 Encounters Date Type Department Care Team Description 05/30/2025 Telephone [facility] [address] [place] [address] Coni Poon RN 05/23/2025 Telephone [facility] [address] [place], [place] [phone] Jailyn Ojeda MD Holter Monitor results 05/19/2025 3:15 PM EST Office Visit [facility] [address] [place], [place] [phone] Jailyn Ojeda MD Primary hypertension (Primary Dx) 05/19/2025 Travel 04/18/2025 Results Follow-Up [facility] [address] [place], [place] [phone] Mildred Alejandre RN Immunoglobulins, Quantitative, IgA, IgG, IgM, Ferritin, Iron And Total Iron Binding Capacity, Vitamin B12/Folate, Serum Panel 04/07/2025 Results Follow-Up [facility] [address] [place] [phone] Abby Sanchez RN CBC auto differential, Comprehensive Metabolic Panel, Lipid Panel, Standard, Additional followed-up results: 4 04/06/2025 Orders Only [facility] [address] [place] [address] Jailyn Ojeda MD Transaminitis (Primary Dx) 04/04/2025 2:00 PM EDT Office Visit [facility] [address] [place], [place] [phone] Jailyn Ojeda MD Annual physical exam (Primary Dx); Vitamin D deficiency; Transaminitis; Hypercholesterolemia; Smoker; Alcoholism (CMS/HCC) (HCC); Palpitations; Primary hypertension; Encounter for immunization 04/04/2025 Telephone [facility] [address] [place] [address] Henny Garcia MD 04/04/2025 Travel 04/03/2025 Telephone [facility] [address] [place], [place] [phone] Jailyn Ojeda MD Chart Prep 04/01/2025 Refill [facility] [address] [place], [place] [phone] Jailyn Ojeda MD Hypercholesterolemia from Last 3 [...] Sign Reading Time Taken Comments Blood Pressure 142/68 05/19/2025 3:22 PM EST Pulse 82 05/19/2025 3:22 PM EST Temperature 36.7 C (98 F) 05/19/2025 3:22 PM EST Respiratory Rate 12 05/19/2025 3:22 PM EST Oxygen Saturation 98% 05/19/2025 3:22 PM EST Inhaled Oxygen Concentration - - Weight 73 kg (161 lb) 05/19/2025 3:22 PM EST Height 170.2 cm (5' 7 ) 05/19/2025 3:22 PM EST Body Mass Index 25.22 05/19/2025 3:22 PM EST Plan of Treatment Health Maintenance Due Date Last Done Comments CT Colonography 1954 Colonoscopy 1955 FIT 1955 Sigmoidoscopy 1954 FOBT 04/30/2025 04/30/2024 COVID-19 Vaccine ( season) 2025 04/28/2025, 04/01/2023, 06/03/2022, Additional history exists Alcohol/Substance Use Screening 04/04/2026 04/04/2025 Depression Screening 04/04/2026 04/04/2025, 04/04/20 25 SDOH Screening 04/04/2026 04/04/2025 Tobacco Screening 05/19/2026 05/19/2025 Colorectal Cancer Screening 04/30/2027 FIT DNA/Cologuard 04/30/2027 04/30/2024 Lipid Panel 04/04/2030 04/04/2025, 04/15/2024 DTaP/Tdap/Td Vaccines (3 - Td or Tdap) 04/04/2035 04/04/2025, 12/19/2012 Hepatitis C Screening Completed 07/06/2021 Zoster Vaccines Completed 10/12/2021, 08/13/2021 Pneumococcal Vaccine: 50+ Years Completed 04/15/2024 Influenza Vaccine Completed 04/04/2025, , 04/01/2023, Additional history exists RSV Patients and Patients Aged 60 years or older Completed 04/28/2025 HIB Vaccines Aged Out No longer eligi [...] Vitamin B12 534 200 - 900 pg/mL [facility] Comment:NORMAL 200-900 PG/ML INDETERMINATE 160-199 PG/ML DEFICIENT < 160 PG/ML Folate 12.4 > or = 4.0 ng/mL [facility] Comment:Reference Values:> o r = [...] Result Performing Organization Address [facility] Co de Phone Number [facility] [address] [place] [phone] * (ABNORMAL) Iron And Total Iron Binding Capacity (04/11/2025 3:29 PM EDT) Iron 158 45 - 160 mcg/dL [facility] Total Iron Binding Capacity 278 228 - 428 mcg/dL [facility] Percent Iron Saturation 57(H) 15 - 50 % [facility] Unsaturated Iron Binding 120 ug/dL [facility] Blood Venous blood specimen / Unknown 04/11/2025 3:29 PM EDT 04/11/2025 6:18 PM EDT us Jailyn Ojeda MD LAB BLOOD ORDERABLES Final Result Performing Organization Address [facility] Co de Phone Number [facility] [address] [place] [phone] * (ABNORMAL) Immunoglobulins, Quantitative, IgA, IgG, IgM (04/11/2025 3:29 PM EDT) IMMUNOGLOBULIN G 961 600 - 1540 mg/dL [facility] IMMUNOGLOBULIN A 421(A) 70 - 320 mg/dL [facility] Immunoglobulin M 81 50 - 300 mg/dL [facility] Comment:THIS TEST WAS PERFOR MED AT:[employer] [place] [phone] SOTO MD Blood Venous blood specimen / Unknown 04/11/2025 3:29 PM EDT 04/11/2025 6:18 PM EDT Jailyn Ojeda MD LAB BLOOD ORDERABLES Final Result Performing Organization Address [facility]/ZIP Co de Phone Number [facility] [address] [place] [phone] * (ABNORMAL) Ferritin (04/11/2025 3:29 PM EDT) Ferritin 1,152(H) 20 - 250 ng/mL [facility] Blood Venous blood specimen / Unknown 04/11/2025 3:29 PM EDT 04/11/2025 6:18 PM EDT Jailyn Ojeda MD LAB BLOOD ORDERABLES Final Result Performing Organization Address [facility] Co de Phone Number [facility] [address] [place] [phone] * ECG 12 lead (04/04/2025 3:26 PM EDT) Jailyn Neil MD - 04/04/2025 3:26 PM EDT Heart rate 72 bpm. [place] -30 degrees. Horizontal axis. No sign of left atrial enlargement or right atrial enlargement. No sign of hypertrophy. Sinus rhythm. Abnormal EKG. Jailyn Ojeda MD ECG ORDERABLES Final Resul t * Vitamin D, 25-Hydroxy, Total, Immunoassay (04/04/2025 2:45 PM EDT) Vitamin D 25-OH Total 68.4 >30 ng/mL [facility] Comment: Health Based Reference Values*< 20 ng/mL Brqspzcmw90-58 ng/mL Insufficient> 30 ng/mL Sufficient*Luna TIMMONS. N [...] BLOOD ORDERABLES Final Result Performing Organization Address City/[facility]/ZIP Co de Phone Number [facility] [address] [place] [address] [phone] * TSH with Reflex to Free T4 (04/04/2025 2:45 PM EDT) Pathologist [facility] TSH reflex Free T4 1.21 0.32 - 4.0 uIU/mL [facility] Blood Venous blood specimen / Unknown 04/04/2025 2:45 PM EDT 04/04/2025 5:54 PM EDT us Jailyn Ojeda MD LAB BLOOD ORDERABLES Final Result Performing Organization Address [facility]/ZIP Co de Phone Number [facility] [address] [place] [address] [phone] * (ABNORMAL) CBC auto differential (04/04/2025 2:45 PM EDT) White Blood Count 6.4 4.8 - 10.8 X10*3/uL [facility] Red Blood Count 3.69(L) 4.60 - 5.80 X10*6/uL [facility] Hemoglobin 13.2(L) 14.0 - 18.0 g/dl [facility] Hematocrit 37.9(L) 42.0 - 52.0 % [facility] Mean Corpuscular Volume 102.7(H) 80.0 - 98.0 fL [facility] Mean Corpuscular Hemoglobin 35.8(H) 27.0 - 33.0 pg [facility] Mean Corpuscular HGB Conc 34.8 31.0 - 36.0 g/dl [facility] Red Cell Distribution Width 12.0 11.0 - 16.0 % [facility] Platelet Count 160 160 - 400 X10*3/uL [facility] Mean Platelet Volume 9.8 9.4 - 12.4 fL [facility] Neutrophils Percent Auto 60.5 45 - 73 % [facility] Imm Gran Pct Auto 1.4(H) 0.0 - 0.4 % [facility] Lymphocytes Percent Auto 27.9 20 - 40 % [facility] Monocytes Percent Auto 6.9 2 - 11 % [facility] Eosinophils Percent Auto 2.4 0 - 4 % [facility] Basophils Percent Auto 0.9 0 - 2 % [facility] NRBC Pct Auto 0.0 0.0 - 0.2 /100WBC [facility] Neutrophils Absolute Auto 3.9 2.0 - 8.3 x10*3/uL [facility] Imm Gran Abs Auto 0.09(H) 0.00 - 0.03 X10*3/uL [facility] Lymphocytes Absolute Auto 1.8 1.2 - 4.9 X10*3/uL [facility] Monocytes Absolute Auto 0.4 0.1 - 1.2 X10*3/uL [facility] Eosinophils Absolute Auto 0.2 0.0 - 0.4 X10*3/uL [facility] Basophils Absolute Auto 0.1 0.0 - 0.2 X10*3/uL [facility] NRBC Abs Auto 0.000 0.0 - 0.012 X10*3/uL [facility] Blood Venous blood specimen / Unknown 04/04/2025 2:45 PM EDT 04/04/2025 5:54 PM EDT us Jailyn Ojeda MD LAB BLOOD ORDERABLES Final Result Performing Organization Address [facility]/ZIP Co de Phone Number [facility] [address] [place] [phone] * (ABNORMAL) Magnesium (04/04/2025 2:45 PM EDT) Magnesium 1.2(LL) 1.6 - 2.6 mg/dL [facility] Comment:Critical value for t est(s):MG Results called to and readback by: HERMAN Person calling:[employer] Date:04-04-25 Time:1901 Blood Venous blood specimen / Unknown 04/04/2025 2:45 PM EDT 04/04/2025 5:54 PM EDT us Jailyn Ojeda MD LAB BLOOD ORDERABLES Final Result Performing Organization Address [facility] Co de Phone Number [facility] [address] [place] [address] [phone] * Lipid Panel, Standard (04/04/2025 2:45 PM EDT) Triglycerides 143 <150 mg/dL [facility] Comment:Desirable Triglyceri de: less than 150 mg/dLBorderline High Triglyceride 150-199 mg/dLHigh Triglyceride: 200-499 mg/dLVery High Triglyceride: greater than or equal to 5OO mg/dL Cholesterol 161 <200 mg/dL [facility] Comment:Desirable Cholestero l: less than 200 mg/dLBorderline High Cholesterol: 200-239 mg/dLHigh Cholesterol: greater than 239 mg/dL LDL Cholesterol Calculated 79 <100 mg/dL [facility] Comment:Desirable LDL: less than 100 mg/dLNear Optimal/Above Optimal LDL: 110- 129 mg/dLBorderline High LDL: 130-159 mg/dLHigh LDL: 160-189 mg/dLVery High LDL: greater than or equal to 190 mg/dL HDL Cholesterol 54 >40 mg/dL [facility] Comment:Desirable HDL: great er than 40 mg/dL Note: This HDL assay may give artificially low results in patients with liver disease. Blood Venous blood specimen / Unknown 04/04/2025 2:45 PM EDT 04/04/2025 5:54 PM EDT us Jailyn Ojeda MD LAB BLOOD ORDERABLES Final Result [facility] [address] [place] [phone] * (ABNORMAL) Comprehensive Metabolic Panel (04/04/2025 2:45 PM EDT) Sodium 142 135 - 145 mmol/L [facility] Potassium 4.0 3.3 - 5.1 mmol/L [facility] Chloride 107 96 - 108 mmol/L [facility] Carbon Dioxide 23 22 - 29 mmol/L [facility] Anion Gap 16 12 - 20 [facility] Urea Nitrogen (BUN) 11 9 - 16 mg/dL [facility] Creatinine, Serum 0.74 0.5 - 1.4 mg/dL [facility] Estimated Glomerular Filt Rate >60 [facility] Comment:Chronic Kidney Disea se: Estimated GFR < 60 mL/min/1.94v2Lnnsxz Kidney Disease: Estimated GFR < 15 mL/min/1.73m2 Glucose 95 60 - 115 mg/dL [facility] Calcium 10.5(H) 8.4 - 10.2 mg/dL [facility] Bilirubin, Total 0.4 0.0 - 1.0 mg/dL [facility] Aspartate Amino Transferase 63(H) 5 - 37 U/L [facility] Alanine Aminotransferase 38 0 - 40 U/L [facility] Total Protein 7.4 6.5 - 8.0 g/dL [facility] Albumin Level 4.6 3.5 - 5.0 g/dL [facility] Alkaline Phosphatase 100 39 - 117 U/L [facility] Blood Venous blood specimen / Unknown 04/04/2025 2:45 PM EDT 04/04/2025 5:54 PM EDT us Jailyn Ojeda MD LAB BLOOD ORDERABLES Final Result [facility] [address] [place] [phone] * (ABNORMAL) Cologuard?? colon cancer screening (04/30/2024 12:10 PM EST) Cologuard Result Positive( A) Negative 05/08/2024 2:17 AM EST [facility] (CLIA #:[id number]) Comment: POSITIVE TEST RESULT. A positive Cologuard [...] (Inocencia Lerner al, N Engl J Med 2014;370(14):1103-2047.) Cologuard may produce a false negative or false positive result (no colorectal cancer or precancerous polyp present at colonoscopy follow up). A negative Cologuard test result does not guarantee the absence of CRC or advanced adenoma (pre-cancer). The current Cologuard screening interval is every 3 years. ([place] [employer] and U.S. Multi-Society Task Force). Cologuard performance data in a 10,000 patient pivotal study using colonoscopy as the reference method can be accessed at the following location: www.[email or web address]/results. Additional description of the Cologuard test process, warnings and precautions can be found at www.[email or web address].com. Stool specimen (specimen) 04/30/2024 12:10 PM EST 05/01/2024 1:15 PM EST Jailyn Ojeda MD LAB MOLECULAR DIAGNOSTICS O RDERABLES Final Result [facility] (CLIA #:[id number]) [place] [address], * HEPATITIS C AB W/REFL TO HCV RNA, QN, PCR (07/06/2021 12:06 PM EST) HEPATITIS C ANTIBODY NON-REACT FRANCES NON-REACT FRANCES [facility] INDEX 0.05 <1.00 [facility] Comment: HCV antibody was non-reactive. There is no laboratory evidence of HCV infection. In most cases, no further action is required. However, if recent HCV exposure is suspected, a test for HCV RNA (test code 71065) is suggested. For additional information please refer to http://education.[employer].BadAbroad/faq/MHG18v0 (This link is being provided for informational/ educational purposes only.) 07/06/2021 12:0 6 PM EST us Trina Luevano MD HISTORICAL/NON ORDERABLE LABS Final Result [facility] [address] from Last 3 Months or Most Recently Relevant to Health Maintenance Insurance [facility] [employer] [place] Care Teams Executive Consultant Relationship Specialty Start Date End Date Jailyn Ojeda MD [address] [place], [place] [address] [place] [address] PCP - General Internal Medicine 06/26/13
--- OUTSIDE RECORDS SUMMARY | 2025-06-06 16:18 | XMS_ITS | Encounter Summary ---
Author Organization [employer] Address [address] [facility] 7 [place] [address] Care Team Providers Care Auto Seat Cover Installer Name Role Phone Jailyn Ojeda MD Primary Care Provider [phone] Reason for Visit * Reason Onset Date Comments Nurse Triage 02/07/2025 Encounter Details Date Type Department Care Team ([facility] st Contact Info) Description 02/07/2025 Telephone [facility] [address] [place] [address] Jailyn Ojeda MD [address] [place], [place] [phone] Nurse Triage Social History Tobacco Use Types [...] on filedocumented in this encounter Care Teams Auto Seat Cover Installer Relationship Specialty Start Date End Date Jailyn Ojeda MD [address] [place] [phone] PCP - General Internal Medicine 06/26/13 documented as of this encounter
== END ==
LOC: HO.CARD 15:02
PROVIDERS: Visit Provider Internal Medicine
DX: R00.2 Palpitations (principal)
CPT/HCPCS: 93225